=== PATIENT | male | born 1965 | race Caucasian/White ===

== ENCOUNTER 2020-04-28 07:30 | Outpatient (REF) | payer OTHER, SELFPAY ==
[2020-04-28 08:40] LABS: Cholesterol 164 mg/dL; Glucose Fasting 176 mg/dL (60-99); HDL Cholesterol 30 mg/dL; LDL Cholesterol Calculated 109 mg/dl; Triglycerides 129 mg/dL
[2020-04-28 09:09] LABS: Estimated Average Glucose 174 mg/dL; Hemoglobin A1c % 7.7 %
== END 2020-04-28 07:31 | disposition home or self-care (01) ==
LOC: HO.LAB 07:30
PROVIDERS: PCP Internal Medicine; Visit Provider Internal Medicine
DX: E11.9 Type 2 diabetes mellitus without complications (principal)
CPT/HCPCS: 80061; 82947; 83036

== ENCOUNTER 2020-05-31 09:44 | Outpatient (REF) | payer OTHER, SELFPAY ==
--- NOTE | 2020-05-31 09:48 | US_ITS ---
EXAMINATION: US ABDOMEN COMPLETE CLINICAL INFORMATION: Nausea. COMPARISON: Ultrasound abdomen complete dated 06/19/2016. CT abdomen without intravenous contrast dated 06/26/2008. TECHNIQUE: Real-time imaging of the abdominal viscera. Technically difficult study secondary to bowel gas and body habitus. FINDINGS: PANCREAS: The pancreatic head and body are unremarkable. The tail is obscured by gas. ABDOMINAL AORTA: The proximal and distal segments are normal in caliber. The mid aorta is obscured by gas. INFERIOR VENA CAVA: Visualized portions are normal. LIVER: The liver is enlarged, measuring 21.5 cm in CC dimension. The liver contour is normal. There is diffuse increased liver parenchymal echogenicity, consistent with hepatic steatosis. There is focal fatty sparing near the gallbladder fossa. No focal hepatic lesion. There is no intrahepatic biliary duct dilatation seen. GALLBLADDER: Multiple polyps are identified. The largest gallbladder wall polyp measures 0.8 x 0.6 x 0.6 cm. The other 2 polyps measure approximately 0.5 cm. The gallbladder is physiologically distended without evidence of stones, sludge, wall thickening or pericholecystic fluid. COMMON BILE DUCT: Normal in caliber measuring 0.51 cm in diameter. RIGHT KIDNEY: Lateral upper pole exophytic cyst measuring 1.1 cm. No hydronephrosis or renal calculi. The kidney measures 11.7 cm in maximum dimension. LEFT KIDNEY: Normal. No hydronephrosis. No renal calculi or focal parenchymal lesions. The kidney measures 11.8 cm in maximum dimension. SPLEEN: Normal. The spleen measures 12.3 cm in maximum dimension. FREE FLUID: None. US/US abdomen complete IMPRESSION: Hepatic steatosis and hepatomegaly. Multiple gallbladder wall polyps. The largest measures 0.8 x 0.6 x 0.6 cm. These are not visualized on the previous ultrasound. Suggest follow-up in 6-12 months to assess for stability. No inflammatory changes of the gallbladder.
== END 2020-05-31 09:45 | disposition home or self-care (01) ==
LOC: HO.HMGCX 09:44
PROVIDERS: PCP Internal Medicine; Visit Provider Internal Medicine
DX: R11.0 Nausea (principal)
CPT/HCPCS: 76700

== ENCOUNTER 2020-08-18 07:31 | Outpatient (REF) | payer OTHER, SELFPAY ==
[2020-08-18 08:09] LABS: MANUAL DIFF FLAG NO
[2020-08-18 08:24] LABS: Basophils Absolute Auto 0.1 X10*3/uL (0.0-0.2); Basophils Percent Auto 0.8 % (0-2); Eosinophils Absolute Auto 0.4 X10*3/uL (0.0-0.4); Eosinophils Percent Auto 4.6 % (0-4); Hematocrit 42.6 % (42-52); Hemoglobin 13.8 g/dl (14.0-18.0); Imm Gran Abs Auto 0.03 X10*3/uL (0.00-0.03); Imm Gran Pct Auto 0.3 % (0.0-0.4); Lymphocytes Absolute Auto 2.2 X10*3/uL (1.2-4.9); Lymphocytes Percent Auto 23.5 % (20-40); Mean Corpuscular HGB Conc 32.4 g/dl (31.0-36.0); Mean Corpuscular Hemoglobin 28.2 pg (27.0-33.0); Mean Corpuscular Volume 86.9 fL (80-98); Mean Platelet Volume 10.6 fL (9.4-12.4); Monocytes Absolute Auto 0.6 X10*3/uL (0.1-1.2); Monocytes Percent Auto 6.8 % (2-11); Neutrophils Absolute Auto 5.9 X10*3/uL (2.0-8.3); Platelet Count 230 X10*3/uL (160-400); Red Cell Distribution Width 13.6 % (11.0-16.0); White Blood Count 9.3 X10*3/uL (4.8-10.8)
[2020-08-18 08:25] LABS: Estimated Average Glucose 166 mg/dL; Hemoglobin A1c % 7.4 %
[2020-08-18 08:36] LABS: Cholesterol 172 mg/dL; HDL Cholesterol 36 mg/dL; LDL Cholesterol Calculated 109 mg/dl; Triglycerides 138 mg/dL
[2020-08-18 08:39] LABS: Alanine Aminotransferase 19 U/L (0-40); Albumin Level 4.6 g/dL (3.5-5.0); Alkaline Phosphatase 62 U/L (39-117); Aspartate Amino Transferase 15 U/L (5-37); Bilirubin Direct 0.2 mg/dL (0.0-0.5); Bilirubin Total 0.6 mg/dL (0.0-1.0); Lipase 26 U/L (8-78); Total Protein 7.3 g/dL (6.5-8.0)
[2020-08-18 09:02] LABS: Prostate Specific Antigen 0.21 ng/mL (<0.05-4.0)
== END 2020-08-18 07:32 | disposition home or self-care (01) ==
LOC: HO.LAB 07:31
PROVIDERS: PCP Internal Medicine; Referring Provider Urology; Visit Provider Internal Medicine Gastroenterology
DX: E11.9 Type 2 diabetes mellitus without complications (principal); R11.0 Nausea; R35.0 Frequency of micturition; Z12.5 Encounter for screening for malignant neoplasm of prostate
CPT/HCPCS: 36415; 80061; 80076; 83036; 83690; 84153; 85025

== ENCOUNTER 2020-09-12 11:58 | Day surgery (SDC) | payer OTHER, SELFPAY ==
--- NOTE | 2020-09-10 14:06 | P.CONAN_ITS ---
Documented by User: Zuleika Landa 09/10/20 14:08 HPI - Anesthesia Eval Consult details Narrative: 54yo M for Upper Endoscopy PMFSH Active Problems Active Problems: All Active Problems (Updated 09/07/20 @ 13:11 by Swapna Lees) Diabetes mellitus (Acute) Nausea (Acute) Cerumen debris on tympanic membrane (Acute) Hypertension (Acute) Past Medical History Medical History BPH (benign prostatic hyperplasia) Diabetes mellitus GERD (gastroesophageal reflux disease) Hypertension Sleep apnea Family History Family History Father CAD (coronary artery disease) CVD (cardiovascular disease) Mother Breast cancer Sister Colon cancer Surgical History Surgical History History of dental surgery History of esophagogastroduodenoscopy (EGD) History of removal of cyst Hx of colonoscopy Social History Social History Alcohol intake: never Smoking Status: Never smoker Use of substances other than those prescribed or required for medical reasons: No Advance Directives: No Advance Directives Information Provided: Yes Meds Allergies Allergy/AdvReac Type Severity Reaction Status Date / Time bee pollen [BEE STINGS] Allergy Unknown SWELLING Verified 08/21/20 15:29 cat dander Allergy Unknown STUFFED UP Verified 08/21/20 15:29 - CONGESTED Home Medications Medication Instructions Recorded Confirmed Last Taken Type alfuzosin 10 mg tablet,extended 10 mg PO DAILY 05/04/20 05/04/20 Unknown History release 24 hr aspirin 81 mg tablet,delayed 81 mg PO DAILY 05/04/20 05/04/20 Unknown History release atenolol 50 mg tablet 50 mg PO DAILY 05/04/20 05/04/20 Unknown History hydrochlorothiazide 12.5 mg tablet 12.5 mg PO DAILY 05/04/20 05/04/20 Unknown History lansoprazole 30 mg PO BID 09/07/20 09/07/20 Unknown History Exam Exam Date and Time: September 10, 2020 1406 Assessment and Plan Assessment Anesthesia Assessment: Chart Reviewed Documented by User: Julianne Krishna 09/12/20 12:57 [facility] Past Medical History Medical History BPH (benign prostatic hyperplasia) Diabetes mellitus GERD (gastroesophageal reflux disease) Hypertension Sleep apnea Family History Family History Father CAD (coronary artery disease) CVD (cardiovascular disease) Mother Breast cancer Sister Colon cancer Surgical History Surgical History History of dental surgery History of esophagogastroduodenoscopy (EGD) History of removal of cyst Hx of colonoscopy Social History Social History Alcohol intake: never Smoking Status: Never smoker Use of substances other than those prescribed or required for medical reasons: No Advance Directives: No Advance Directives Information Provided: Yes Meds Allergies Allergy/AdvReac Type Severity Reaction Status Date / Time bee pollen [BEE STINGS] Allergy Unknown SWELLING Verified 08/21/20 15:29 cat dander Allergy Unknown STUFFED UP Verified 08/21/20 15:29 - CONGESTED Home Medications Medication Instructions Recorded Confirmed Last Taken Type alfuzosin 10 mg tablet,extended 10 mg PO DAILY 05/04/20 05/04/20 Unknown History release 24 hr aspirin 81 mg tablet,delayed 81 mg PO DAILY 05/04/20 05/04/20 Unknown History release atenolol 50 mg tablet 50 mg PO DAILY 05/04/20 05/04/20 Unknown History hydrochlorothiazide 12.5 mg tablet 12.5 mg PO DAILY 05/04/20 05/04/20 Unknown History lansoprazole 30 mg PO BID 09/07/20 09/07/20 Unknown History Exam Airway Mallampati Class: III TM Dist: >3cm Neck ROM: Full
[2020-09-11 08:26] VITALS: BMI 36.8
[2020-09-12 12:16] VITALS: BP 145/73; PULSE 64; RESP 16; TEMP 36.6; O2SAT 96
[2020-09-12 12:39] LABS: Glucose, Whole Blood 156 mg/dL (60-115)
--- NOTE | 2020-09-12 13:05 | P.HPSUR_ITS ---
Pre-Procedural Eval Section B Chief Complaint: nausea Details of Present Illness: see h&p no chasnges Relevant Family History (Specify if Yes): No Relevant Social History: None Present Medications: see Short Stay Collaborative assessment Medical History: No relevant PMH History of Previous Operations: No relevant previous surgery Allergies: Allergies Allergy/AdvReac Type Severity Reaction Status Date / Time bee pollen [BEE STINGS] Allergy Unknown SWELLING Verified 08/21/20 15:29 cat dander Allergy Unknown STUFFED UP Verified 08/21/20 15:29 - CONGESTED Review of Systems Sugical H&P ROS: Negative: Constitution, Cardiovascular, Respiratory, Neurolo gical, Psychiatric, Hem-Onc, Allergic/Immunologic, Gastrointestinal, Genitourinary, Musculoskeletal, Integumentary, Endocrine and Eyes/Ears/Nose/Throat Exam Surgical H&P Exam: Normal: HEENT, Normal: Heart, Normal: Lungs, Normal: Extremities, Normal: Abdomen, Normal: Skin and Normal: Neurological Plan Diagnosis/Plan: Unchanged I have reviewed the history and physical and performed a pertinent physical examination on my patient. No changes have occurred unless specified.
--- NOTE | 2020-09-12 13:24 | PM.OP ---
Brief Operative Note Date of Service: 09/12/20 Pre-op diagnosis: nausea, gerd Post-op diagnosis: same (gastric polyps) Procedure: EGD Surgeon: Benja Castellanos Anesthesia: MAC Estimated blood loss (mL): 5 Pathology: other (gastric polyp , antral, egj biopsies) Condition: stable Disposition: PACU
[2020-09-12 13:28] VITALS: BP 116/58; PULSE 62; RESP 16; TEMP 36.3; O2SAT 96
[2020-09-12 13:43] VITALS: BP 120/66; PULSE 64; RESP 17; TEMP 36.3; O2SAT 98
--- NOTE | 2020-09-12 13:49 | OP_ITS ---
SURGEON: Benja Castellanos MD INDICATIONS: Nausea and gastroesophageal reflux disease. PREOPERATIVE DIAGNOSIS: POSTOPERATIVE DIAGNOSIS: PROCEDURE PERFORMED: Upper endoscopy with biopsy. ESTIMATED BLOOD LOSS: COMPLICATIONS: ANESTHESIA: ASSISTANTS: SPECIMENS: MEDICATIONS: Monitored anesthesia care. DESCRIPTION OF PROCEDURE: History and physical performed. The risks and benefits of the procedure were explained to the patient. Informed consent was obtained. The patient was placed in the left lateral decubitus position. The Olympus video gastroscope was introduced into the esophagus, stomach, and duodenum. Examination was performed and the scope was removed. He tolerated both procedures well and returned to recovery area in stable condition. FINDINGS: UPPER ENDOSCOPY: Esophagus: The esophagus was normal and the EG junction was irregular. There was no esophagitis. Biopsies were obtained from the EG junction. Stomach: Stomach showed multiple gastric polyps measuring in size from a few millimeters to about 25 to 30 mm. These were present in the body and fundus. Multiple biopsies were obtained from manufacturers representative polyps. Antral biopsies were also obtained. Some polyps appeared mildly inflamed. Duodenum: The bulb and second portion were normal. IMPRESSION: 1. Gastric polyps. 2. Gastroesophageal reflux disease. RECOMMENDATION: Follow up the biopsy results. MD RADHA Lynne/JES / [id number] [facility]asc[facility]
== END 2020-09-12 14:15 | disposition home or self-care (01) ==
PROVIDERS: PCP Internal Medicine; Visit Provider Internal Medicine Gastroenterology
PROC: 0DJ08ZZ Inspection of Upper Intestinal Tract, Via Natural or Artificial Opening Endoscopic (ICD-10-PCS; CPT 43235; principal; 2020-09-12 13:00)
DX: K21.9 Gastro-esophageal reflux disease without esophagitis (principal); R11.0 Nausea; K31.7 Polyp of stomach and duodenum; E11.9 Type 2 diabetes mellitus without complications; I10 Essential (primary) hypertension; Z79.899 Other long term (current) drug therapy
CPT/HCPCS: 43239; 82947; 88305; 88342

== ENCOUNTER 2020-12-22 07:31 | Outpatient (REF) | payer OTHER, SELFPAY ==
[2020-12-22 08:37] LABS: Estimated Average Glucose 171 mg/dL; Hemoglobin A1c % 7.6 %
[2020-12-22 08:40] LABS: Cholesterol 172 mg/dL; HDL Cholesterol 36 mg/dL; LDL Cholesterol Calculated 106 mg/dl; Triglycerides 153 mg/dL
== END 2020-12-22 07:32 | disposition home or self-care (01) ==
LOC: HO.LAB 07:31
PROVIDERS: PCP Internal Medicine; Visit Provider Internal Medicine
DX: E11.9 Type 2 diabetes mellitus without complications (principal)
CPT/HCPCS: 36415; 80061; 83036

== ENCOUNTER 2021-01-24 08:48 | Outpatient (REF) | payer OTHER, SELFPAY ==
--- NOTE | ~2021-01-24 | US_ITS ---
EXAMINATION: US ABDOMEN COMPLETE CLINICAL INFORMATION: Unspecified abdominal pain. COMPARISON: Ultrasound abdomen complete dated 05/31/2020 TECHNIQUE: Real-time imaging of the abdominal viscera. FINDINGS: PANCREAS: The visualized head and body of the pancreas appears unremarkable. Remainder of the pancreas is obscured by bowel gas. ABDOMINAL AORTA: The proximal, mid, and distal segments are normal in caliber. INFERIOR VENA CAVA: Visualized portions are normal. LIVER: Increased parenchymal echogenicity. The liver is normal in size. The liver contour is normal. . No focal hepatic lesion. There is no intrahepatic biliary duct dilatation seen. GALLBLADDER: Mild echogenic bile/sludge in the gallbladder. There are multiple echogenic nonshadowing polyps adjacent to the gallbladder wall, largest measuring 6 x 6 x 5 mm in today's study. No shadowing calculi. No wall thickening or pericholecystic fluid. No tenderness in the area of the gallbladder. COMMON BILE DUCT: Normal in caliber measuring 0.37 cm in diameter. RIGHT KIDNEY: Lower pole anechoic simple-appearing 1.3 cm exophytic cyst. No hydronephrosis or renal calculi. The kidney measures 12.2 cm in maximum dimension. LEFT KIDNEY: Normal. No hydronephrosis. No renal calculi or focal parenchymal lesions. The kidney measures 10.9 cm in maximum dimension. SPLEEN: Mildly enlarged. The spleen measures 13.4 cm in maximum dimension. FREE FLUID: None. US/US abdomen complete IMPRESSION: 1. Increased hepatic parenchymal echogenicity more commonly seen with hepatic steatosis. No focal lesion. 2. Multiple gallbladder wall polyps. These appear stable as compared to previous. In today's study, the largest measures 6 x 6 x 5 mm. Suggest followup in 6-12 months to evaluate for stability. Mild echogenic bile/sludge in the gallbladder lumen. No inflammatory changes. 3. Right renal 1.3 cm cyst.
== END 2021-01-24 08:49 | disposition home or self-care (01) ==
LOC: HO.HMGCX 08:48
PROVIDERS: PCP Internal Medicine; Visit Provider Internal Medicine
DX: R10.9 Unspecified abdominal pain (principal)
CPT/HCPCS: 76700

== ENCOUNTER 2021-04-17 06:29 | Outpatient (REF) | payer OTHER, SELFPAY ==
[2021-04-17 12:03] LABS: Cholesterol 182 mg/dL; Estimated Average Glucose 163 mg/dL; HDL Cholesterol 32 mg/dL; Hemoglobin A1c % 7.3 %; LDL Cholesterol Calculated 110 mg/dl; Triglycerides 203 mg/dL
== END 2021-04-17 06:30 | disposition home or self-care (01) ==
LOC: HO.HMGCLDS 06:29
PROVIDERS: PCP Internal Medicine; Visit Provider Internal Medicine
DX: E11.9 Type 2 diabetes mellitus without complications (principal)
CPT/HCPCS: 36415; 80061; 83036

== ENCOUNTER 2021-05-10 16:12 | Outpatient (REF) | payer OTHER, SELFPAY ==
--- NOTE | ~2021-05-10 | CT_ITS ---
EXAMINATION: CT HEAD WITHOUT CONTRAST CLINICAL INFORMATION: Headache COMPARISON: Previous head CT June 2016 TECHNIQUE: Contiguous axial imaging was performed from the skull base to vertex without intravenous administration of contrast. This CT examination was performed using dose optimization techniques as appropriate, variously including the following: *Automated exposure control *Adjustment of mA and/or kV according to patient size (this includes techniques or standardized protocols for targeted exams where dose is matched to indication/reason for exam; i.e. extremities or head) *Use of iterative reconstruction technique DLP: 909 mGy-cm FINDINGS: There is no evidence of acute intracranial hemorrhage or territorial infarction. No abnormal mass effect or midline shift is seen. Blackmon to white matter differentiation is well preserved. No extra-axial fluid collections are identified. The ventricles are normal in size. There is no abnormal attenuation within the brain parenchyma. There is coiled high attenuation seen in the right maxillary sinus. Appearance is questionable for an embolization coil. There is soft tissue opacification of the bilateral maxillary and ethmoid sinuses. There is also increased soft tissue in the nasal cavity. Appearance is questionable for sinonasal polyposis. There is increased round soft tissue seen in the nasopharynx measuring 1.5 cm questionable for protruding nasal polyp. The mastoid air cells and middle ears are clear. CT/CT head/brain wo con IMPRESSION: No acute intracranial findings. Bilateral maxillary and ethmoid sinus disease and question sinonasal polyposis with nasal polyp projecting posteriorly into the nasopharynx. New high attenuation curvilinear foreign body in the right maxillary sinus from 2016. Correlation with patient's clinical history is recommended.
== END 2021-05-10 16:13 | disposition home or self-care (01) ==
LOC: HO.CT 16:12
PROVIDERS: Visit Provider Internal Medicine
DX: R51.9 Headache, unspecified (principal)
CPT/HCPCS: 70450

== ENCOUNTER 2021-07-03 06:49 | Outpatient (REF) | payer OTHER, SELFPAY | END 2021-07-03 06:50 | disposition home or self-care (01) | LOC: HO.HMGCLDS 06:49 | PROVIDERS: PCP Internal Medicine; Visit Provider Internal Medicine | DX: Z20.822 Contact with and (suspected) exposure to COVID-19 (principal) | CPT/HCPCS: C9803; U0003; U0005 ==

== ENCOUNTER 2021-08-02 06:31 | Outpatient (REF) | payer OTHER, SELFPAY ==
[2021-08-02 11:58] LABS: Estimated Average Glucose 169 mg/dL; Hemoglobin A1c % 7.5 %
[2021-08-02 12:06] LABS: Cholesterol 197 mg/dL; Glucose Fasting 164 mg/dL (60-99); HDL Cholesterol 34 mg/dL; LDL Cholesterol Calculated 129 mg/dl; Triglycerides 174 mg/dL
== END 2021-08-02 06:32 | disposition home or self-care (01) ==
LOC: HO.HMGCLDS 06:31
PROVIDERS: PCP Internal Medicine; Visit Provider Internal Medicine
DX: E11.65 Type 2 diabetes mellitus with hyperglycemia (principal)
CPT/HCPCS: 36415; 80061; 82947; 83036

== ENCOUNTER 2021-10-03 06:07 | Outpatient (REF) | payer OTHER, SELFPAY ==
[2021-10-03 11:16] LABS: MANUAL DIFF FLAG NO
[2021-10-03 11:24] LABS: Basophils Absolute Auto 0.1 X10*3/uL (0.0-0.2); Basophils Percent Auto 0.8 % (0-2); Eosinophils Absolute Auto 0.6 X10*3/uL (0.0-0.4); Eosinophils Percent Auto 5.7 % (0-4); Hematocrit 42.4 % (42.0-52.0); Hemoglobin 13.4 g/dl (14.0-18.0); Imm Gran Abs Auto 0.06 X10*3/uL (0.00-0.03); Imm Gran Pct Auto 0.6 % (0.0-0.4); Lymphocytes Absolute Auto 2.4 X10*3/uL (1.2-4.9); Lymphocytes Percent Auto 24.6 % (20-40); Mean Corpuscular HGB Conc 31.6 g/dl (31.0-36.0); Mean Corpuscular Hemoglobin 27.6 pg (27.0-33.0); Mean Corpuscular Volume 87.4 fL (80.0-98.0); Mean Platelet Volume 11.1 fL (9.4-12.4); Monocytes Absolute Auto 0.8 X10*3/uL (0.1-1.2); Neutrophils Absolute Auto 5.8 x10*3/uL (2.0-8.3); Neutrophils Percent Auto 60.3 % (45-73); Platelet Count 244 X10*3/uL (160-400); Red Blood Count 4.85 X10*6/uL (4.60-5.80); Red Cell Distribution Width 13.4 % (11.0-16.0); White Blood Count 9.6 X10*3/uL (4.8-10.8)
[2021-10-03 12:06] LABS: Creatinine Urine 101.33 mg/dL; Microalbumin Urine < 5.0 mg/L
[2021-10-03 12:06] LABS: Alanine Aminotransferase 20 U/L (0-40); Albumin Level 4.5 g/dL (3.5-5.0); Alkaline Phosphatase 49 U/L (39-117); Anion Gap 15 (12-20); Aspartate Amino Transferase 14 U/L (5-37); Bilirubin Total 0.5 mg/dL (0.0-1.0); Blood Urea Nitrogen 20 mg/dL (9-16); Calcium 9.5 mg/dL (8.4-10.2); Carbon Dioxide 28 mmol/L (22-29); Chloride 102 mmol/L (96-108); Cholesterol 194 mg/dL; Estimated Glomerular Filt Rate > 60; Glucose Fasting 176 mg/dL (60-99); HDL Cholesterol 36 mg/dL; LDL Cholesterol Calculated 123 mg/dl; Potassium 4.6 mmol/L (3.3-5.1); Sodium 140 mmol/L (135-145); Total Protein 7.3 g/dL (6.5-8.0); Triglycerides 177 mg/dL
[2021-10-03 12:08] LABS: Estimated Average Glucose 177 mg/dL; Hemoglobin A1c % 7.8 %
== END 2021-10-03 06:08 | disposition home or self-care (01) ==
LOC: HO.HMGCLDS 06:07
PROVIDERS: Visit Provider Internal Medicine
DX: Z00.00 Encounter for general adult medical examination without abnormal findings (principal); Z13.0 Encounter for screening for diseases of the blood and blood-forming organs and certain disorders involving the immune mechanism; E11.9 Type 2 diabetes mellitus without complications
CPT/HCPCS: 36415; 80053; 80061; 82043; 83036; 85025

== ENCOUNTER 2022-02-04 06:33 | Outpatient (REF) | payer OTHER, SELFPAY ==
[2022-02-04 11:36] LABS: Estimated Average Glucose 157 mg/dL; Hemoglobin A1c % 7.1 %
[2022-02-04 11:40] LABS: Cholesterol 182 mg/dL; Glucose Fasting 152 mg/dL (60-99); HDL Cholesterol 33 mg/dL; LDL Cholesterol Calculated 110 mg/dl; Triglycerides 198 mg/dL
== END 2022-02-04 06:34 | disposition home or self-care (01) ==
LOC: HO.HMGCLDS 06:33
PROVIDERS: Visit Provider Internal Medicine
DX: Z13.9 Encounter for screening, unspecified (principal); E11.65 Type 2 diabetes mellitus with hyperglycemia
CPT/HCPCS: 36415; 80061; 82947; 83036

== ENCOUNTER 2022-06-16 06:03 | Outpatient (REF) | payer OTHER, SELFPAY ==
[2022-06-16 11:59] LABS: Estimated Average Glucose 180 mg/dL; Hemoglobin A1c % 7.9 %
[2022-06-16 12:06] LABS: Glucose Fasting 172 mg/dL (60-99)
== END 2022-06-16 06:04 | disposition home or self-care (01) ==
LOC: HO.HMGCLDS 06:03
PROVIDERS: PCP Internal Medicine; Visit Provider Internal Medicine
DX: E11.65 Type 2 diabetes mellitus with hyperglycemia (principal)
CPT/HCPCS: 36415; 82947; 83036

== ENCOUNTER 2022-09-23 07:48 | Outpatient (REF) | payer OTHER, SELFPAY ==
--- NOTE | ~2022-09-23 | US_ITS ---
EXAMINATION: US ABDOMEN COMPLETE CLINICAL INFORMATION: Gallbladder polyp. COMPARISON: Ultrasound abdomen complete 01/24/2021 and 05/31/2020. CT abdomen 06/26/2008. TECHNIQUE: Real-time imaging of the abdominal viscera. FINDINGS: PANCREAS: Normal. ABDOMINAL AORTA: The proximal, mid, and distal segments are normal in caliber. INFERIOR VENA CAVA: Visualized portions are normal. LIVER: The liver is enlarged measuring 23 cm in length. The liver contour is normal. There is diffuse increased liver echogenicity. No focal hepatic lesion. There is no intrahepatic biliary duct dilatation seen. GALLBLADDER: There are small nonmobile echogenic polyps at least 5 in number. The largest polyp measures 1.1 x 0.9 x 0.9 cm. There are shadowing echogenic areas of the gallbladder wall suspicious for adenomyomatosis. Gallbladder wall thickness is 0.3 cm. The gallbladder is physiologically distended without evidence of stones, sludge, wall thickening or pericholecystic fluid. COMMON BILE DUCT: Normal in caliber measuring 0.5 cm in diameter. RIGHT KIDNEY: There are two anechoic cysts: 1. Midpole cyst laterally measures 1.0 x 0.9 x 0.9 cm. 2. Midpole cyst laterally measuring 0.6 x 0.4 x 0.7 cm with posterior calcification. No hydronephrosis or renal calculi. The kidney measures 12.1 cm in maximum dimension. LEFT KIDNEY: Normal. No hydronephrosis. No renal calculi or focal parenchymal lesions. The kidney measures 11.5 cm in maximum dimension. SPLEEN: The spleen is enlarged. It measures 13.5 cm in maximum dimension. There is an accessory splenule measuring 1.9 x 1.5 x 1.8 cm. FREE FLUID: None. US/US abdomen complete IMPRESSION: 1. At least 5 gallbladder polyps with the largest measuring 1.1 x 0.9 x 0.9 cm. There are shadowing echogenic areas of the gallbladder wall suspicious for adenomyomatosis. 2. Two midpole right renal cysts. 3. Mild hepatomegaly with diffuse increased echogenicity. No focal lesion seen. 4. Rest of the abdominal ultrasound is unremarkable.
== END 2022-09-23 07:49 | disposition home or self-care (01) ==
LOC: HO.US 07:48
PROVIDERS: PCP Internal Medicine; Visit Provider Internal Medicine Gastroenterology
DX: K82.4 Cholesterolosis of gallbladder (principal)
CPT/HCPCS: 76700

== ENCOUNTER 2022-09-24 11:51 | Day surgery (SDC) | payer OTHER, SELFPAY ==
--- NOTE | 2022-09-23 11:35 | HO.ANESPROP2 ---
Documented by User: Zuleika Ladna NP 09/23/22 11:36 HPI - Anesthesia Eval Consult details Narrative: 56yo M for Colonoscopy PMFSH Active Problems Active Problems: All Active Problems (Updated 09/23/22 @ 09:21 by Chantal Paez RN) Nausea (Acute) Cerumen debris on tympanic membrane (Acute) Headache (Acute) Physical exam (Acute) Obesity (Acute) Obesity, diabetes, and hypertension syndrome (Acute) Hypertension (Acute) Diabetes mellitus (Acute) Past Medical History Medical History (Updated 09/23/22 @ 09:21 by Chantal Paez RN) BPH (benign prostatic hyperplasia) Diabetes mellitus Diabetes mellitus with coincident hypertension GERD (gastroesophageal reflux disease) Hypertension Obesity Obesity, diabetes, and hypertension syndrome Sleep apnea Stroke Family History Family History Father CAD (coronary artery disease) CVD (cardiovascular disease) Mother Breast cancer Sister Colon cancer Surgical History Surgical History History of dental surgery History of esophagogastroduodenoscopy (EGD) History of removal of cyst Hx of colonoscopy Social History Social History Housing: House Alcohol intake: never Patient Tobacco Use Status: Never used Tobacco e-Cigarette/Vaping Use: Never Used Second Hand Smoke Exposure: No Use of substances other than those prescribed or required for medical reasons: No Are you DNR?: No Advance Directives: No Advance Directives Information Provided: Yes service: No Current occupational status: employed Cognitive needs: No Hearing needs: No Vision needs: Yes Meds Allergies Allergy/AdvReac Type Severity Reaction Status Date / Time bee pollen [BEE STINGS] Allergy Unknown SWELLING Verified 06/16/22 09:23 cat dander Allergy Unknown STUFFED UP Verified 06/16/22 09:23 - CONGESTED Home Medications Medication Instructions Recorded Confirmed Last Taken Type aspirin 81 mg tablet,delayed 81 mg PO DAILY 05/04/20 06/16/22 Unknown History release (Adult Low Dose Aspirin) esomeprazole magnesium 40 mg 40 mg PO DAILY 08/06/21 06/16/22 Unknown History capsule,delayed release fluocinonide 0.05 % topical cream 1 appl topical BID 08/06/21 06/16/22 Unknown History Exam Exam Date and Time: September 23, 2022 1135 Assessment and Plan Assessment Anesthesia Assessment: Chart Reviewed Documented by User: Brissa Fong MD 09/24/22 13:33 HPI - Anesthesia Eval Consult details Narrative: 56yo M for Colonoscopy screening [facility] Past Medical History Medical History (Updated 09/23/22 @ 09:21 by Chantal Paez RN) BPH (benign prostatic hyperplasia) Diabetes mellitus Diabetes mellitus with coincident hypertension GERD (gastroesophageal reflux disease) Hypertension Obesity Obesity, diabetes, and hypertension syndrome Sleep apnea Stroke Family History Family History Father CAD (coronary artery disease) CVD (cardiovascular disease) Mother Breast cancer Sister Colon cancer Family history of problems with anesthesia: No Surgical History Surgical History History of dental surgery History of esophagogastroduodenoscopy (EGD) History of removal of cyst Hx of colonoscopy History of Problems with Anesthesia: No Social History Social History Housing: House Alcohol intake: never Patient Tobacco Use Status: Never used Tobacco e-Cigarette/Vaping Use: Never Used Second Hand Smoke Exposure: No Use of substances other than those prescribed or required for medical reasons: No Are you DNR?: No Advance Directives: No Advance Directives Information Provided: Yes service: No Current occupational status: employed Cognitive needs: No Hearing needs: No Vision needs: Yes Meds Allergies Allergy/AdvReac Type Severity Reaction Status Date / Time bee pollen [BEE STINGS] Allergy Unknown SWELLING Verified 06/16/22 09:23 cat dander Allergy Unknown STUFFED UP Verified 06/16/22 09:23 - CONGESTED Home Medications Medication Instructions Recorded Confirmed Last Taken Type aspirin 81 mg tablet,delayed 81 mg PO DAILY 05/04/20 06/16/22 Unknown History release (Adult Low Dose Aspirin) esomeprazole magnesium 40 mg 40 mg PO DAILY 08/06/21 06/16/22 Unknown History capsule,delayed release fluocinonide 0.05 % topical cream 1 appl topical BID 08/06/21 06/16/22 Unknown History Exam Airway Mallampati Class: II TM Dist: >3cm Neck ROM: Full Heart: rr Lungs: cta Assessment and Plan Final Anesthetic Review Family History of Problems with Anesthesia: No History of Problems with Anesthesia: No NPO: Yes ASA Class: II Final Preanesthetic Review: No Changes in Pt Med Stat, Meds/Allgs Chart Reviewed, Consent Obtained/Reviewed and Anes Risks/Benef Reviewed Patient Risk: Low Procedure Risk: Low Anesthetic Plan Anesthetic Plan: MAC: Disposition: Standard PACU
[2022-09-24 12:06] VITALS: BP 172/53; PULSE 52; RESP 18; TEMP 36.4; O2SAT 97; BMI 37.6
--- NOTE | 2022-09-24 12:21 | ECG_ITS ---
Test Reason : bradycardia Blood Pressure : / mmHG Vent. Rate : 052 BPM Atrial Rate : 052 BPM P-R Int : 178 ms QRS Dur : 100 ms QT Int : 430 ms P-R-T Axes : 047 011 033 degrees QTc Int : 399 ms Sinus bradycardia Otherwise normal ECG When compared with ECG of 23-JUN-2016 10:19, Vent. rate has decreased BY 35 BPM Referred By: Brissa Fong Electronically Signed By:LIBIA TELLEZ
[2022-09-24 12:53] LABS: Glucose, Whole Blood 150 mg/dL (60-115)
[2022-09-24] MEDS: Lactated Ringers 1,000 ML 100 ML IVCONT (12:55)
--- NOTE | 2022-09-24 13:04 | MHC.SHP ---
Pre-Procedural Eval Section A Date of Service: 09/24/22 Section B Chief Complaint: screening Details of Present Illness: see H&P no changes Relevant Family History (Specify if Yes): No Relevant Social History: None Present Medications: see Short Stay Collaborative assessment Medical History: No relevant PMH Allergies: Allergies Allergy/AdvReac Type Severity Reaction Status Date / Time bee pollen [BEE STINGS] Allergy Unknown SWELLING Verified 06/16/22 09:23 cat dander Allergy Unknown STUFFED UP Verified 06/16/22 09:23 - CONGESTED Review of Systems Sugical H&P ROS: Negative: Constitution, Cardiovascular, Respiratory, Neurological, Psychiatric, Hem-Onc, Allergic/Immunologic, Gastrointestinal, Genitourinary, Musculoskeletal, Integumentary, Endocrine and Eyes/Ears/Nose/Throat Exam Surgical H&P Exam: Normal: HEENT, Normal: Heart, Normal: Lungs, Normal: Extremities, Normal: Abdomen, Normal: Skin and Normal: Neurological Plan Diagnosis/Plan: Unchanged I have reviewed the history and physical and performed a pertinent physical examination on my patient. No changes have occurred unless specified. Time Spent With Patient Time: Total time managing care of this patient today ____ minutes.
[2022-09-24 13:43] VITALS: BP 108/59; PULSE 56; RESP 18; TEMP 36.3; O2SAT 97
[2022-09-24 13:58] VITALS: BP 149/94; PULSE 52; RESP 18; TEMP 36.1; O2SAT 98
--- NOTE | 2022-09-25 01:10 | OP_ITS ---
SURGEON: Benja Castellanos MD INDICATIONS: Colon cancer screening and prior history of adenomatous colon polyps. PREOPERATIVE DIAGNOSIS: POSTOPERATIVE DIAGNOSIS: PROCEDURE PERFORMED: Colonoscopy to the terminal ileum with biopsy and snare polypectomy. ESTIMATED BLOOD LOSS: COMPLICATIONS: ANESTHESIA: Medications, monitored anesthesia care. ASSISTANTS: SPECIMENS: DESCRIPTION OF PROCEDURE: A history and physical was performed. The risks and benefits of the procedure were explained to the patient. Informed consent was obtained. The patient was placed in the left lateral decubitus position. A digital rectal exam was performed and was found to be normal. The Olympus pediatric video colonoscope was introduced into the rectum and advanced to the cecum without difficulty. The cecum was identified by transillumination, palpation, and identification of ileocecal valve. Examination was performed. The scope was removed. He tolerated the procedure well and was taken to recovery area in stable condition. FINDINGS: The terminal ileum was examined and appeared normal. The visualized colonic mucosa was normal. Four polyps were removed; two at 80 cm and two at 70 cm. All were less than 10 mm, two were snared, one each separate locations, and two were removed with biopsy forceps. The snared polyps could not be recovered due to problems with the trap recovery system. No other polyps were identified. The quality of the prep was good. Retroflexed examination showed moderate-sized internal hemorrhoids. The procedure was performed on 09/24/2022. IMPRESSION: Colon polyps. RECOMMENDATION: Follow up with the biopsy results. MD RADHA Lynne/JES / [id number]
== END 2022-09-24 14:53 | disposition home or self-care (01) ==
PROVIDERS: PCP Internal Medicine; Visit Provider Internal Medicine Gastroenterology
PROC: 0DJD8ZZ Inspection of Lower Intestinal Tract, Via Natural or Artificial Opening Endoscopic (ICD-10-PCS; CPT 45378; principal; 2022-09-24 13:00)
DX: Z12.11 Encounter for screening for malignant neoplasm of colon (principal); Z86.010 Personal history of colon polyps; D12.4 Benign neoplasm of descending colon; K63.5 Polyp of colon; K64.8 Other hemorrhoids; K21.9 Gastro-esophageal reflux disease without esophagitis; I10 Essential (primary) hypertension; G47.30 Sleep apnea, unspecified; E11.9 Type 2 diabetes mellitus without complications; Z79.84 Long term (current) use of oral hypoglycemic drugs; Z79.82 Long term (current) use of aspirin; Z79.899 Other long term (current) drug therapy; Z86.73 Personal history of transient ischemic attack (TIA), and cerebral infarction without residual deficits
CPT/HCPCS: 45385; 45380; 82947; 88305; 93005

== ENCOUNTER → 2022-10-09 15:19 | Outpatient (BNVA) | payer OTHER, SELFPAY | PROVIDERS: PCP Internal Medicine; Visit Provider Internal Medicine Endocrinology, Diabetes & Metabolism | DX: E11.9 Type 2 diabetes mellitus without complications (principal) | CPT/HCPCS: 82947; 83036 ==

== ENCOUNTER 2022-11-12 15:35 | Outpatient (REF) | payer OTHER, SELFPAY ==
[2022-11-12 18:52] LABS: Blood Urea Nitrogen 20 mg/dL (9-16); Estimated Glomerular Filt Rate > 60
== END 2022-11-12 15:36 | disposition home or self-care (01) ==
LOC: HO.LAB 15:35
PROVIDERS: PCP Internal Medicine; Referring Provider Internal Medicine Gastroenterology; Visit Provider Surgery
DX: K82.4 Cholesterolosis of gallbladder (principal); R16.1 Splenomegaly, not elsewhere classified
CPT/HCPCS: 36415; 82565; 84520

== ENCOUNTER 2022-11-26 06:09 | Outpatient (REF) | payer OTHER, SELFPAY ==
[2022-11-26 11:20] LABS: MANUAL DIFF FLAG NO
[2022-11-26 11:36] LABS: Basophils Absolute Auto 0.1 X10*3/uL (0.0-0.2); Basophils Percent Auto 0.7 % (0-2); Eosinophils Absolute Auto 0.6 X10*3/uL (0.0-0.4); Eosinophils Percent Auto 6.4 % (0-4); Hematocrit 41.9 % (42.0-52.0); Hemoglobin 13.3 g/dl (14.0-18.0); Imm Gran Abs Auto 0.03 X10*3/uL (0.00-0.03); Imm Gran Pct Auto 0.3 % (0.0-0.4); Mean Corpuscular HGB Conc 31.7 g/dl (31.0-36.0); Mean Corpuscular Hemoglobin 27.5 pg (27.0-33.0); Mean Corpuscular Volume 86.7 fL (80.0-98.0); Mean Platelet Volume 10.4 fL (9.4-12.4); Monocytes Absolute Auto 0.9 X10*3/uL (0.1-1.2); Monocytes Percent Auto 9.6 % (2-11); Platelet Count 258 X10*3/uL (160-400); Red Blood Count 4.83 X10*6/uL (4.60-5.80); Red Cell Distribution Width 13.4 % (11.0-16.0); White Blood Count 9.7 X10*3/uL (4.8-10.8)
[2022-11-26 12:00] LABS: Estimated Average Glucose 157 mg/dL; Hemoglobin A1c % 7.1 %
[2022-11-26 12:06] LABS: Alanine Aminotransferase 13 U/L (0-40); Albumin Level 4.3 g/dL (3.5-5.0); Alkaline Phosphatase 55 U/L (39-117); Anion Gap 11 (12-20); Aspartate Amino Transferase 11 U/L (5-37); Bilirubin Total 0.7 mg/dL (0.0-1.0); Blood Urea Nitrogen 17 mg/dL (9-16); Calcium 9.4 mg/dL (8.4-10.2); Carbon Dioxide 29 mmol/L (22-29); Chloride 105 mmol/L (96-108); Cholesterol 193 mg/dL; Estimated Glomerular Filt Rate > 60; Glucose Fasting 129 mg/dL (60-99); HDL Cholesterol 31 mg/dL; LDL Cholesterol Calculated 137 mg/dl; Potassium 4.2 mmol/L (3.3-5.1); Sodium 141 mmol/L (135-145); Total Protein 6.9 g/dL (6.5-8.0); Triglycerides 126 mg/dL
[2022-11-26 12:27] LABS: Thyroid Stimulating Hormone 1.64 uIU/mL (0.32-4.0)
[2022-11-26 12:40] LABS: Creatinine Urine 120.44 mg/dL; Microalbum/Creatinine Ratio Ur 5.8 ug/mg cr
== END 2022-11-26 06:10 | disposition home or self-care (01) ==
LOC: HO.HMGCLDS 06:09
PROVIDERS: PCP Internal Medicine; Visit Provider Internal Medicine
DX: E11.69 Type 2 diabetes mellitus with other specified complication (principal); E11.65 Type 2 diabetes mellitus with hyperglycemia; E03.9 Hypothyroidism, unspecified; N28.9 Disorder of kidney and ureter, unspecified; E78.5 Hyperlipidemia, unspecified; D64.9 Anemia, unspecified; E66.01 Morbid (severe) obesity due to excess calories
CPT/HCPCS: 36415; 80053; 80061; 82043; 83036; 84443; 85025

== ENCOUNTER 2022-12-02 07:44 | Outpatient (REF) | payer OTHER, SELFPAY ==
--- NOTE | ~2022-12-02 | CT_ITS ---
EXAMINATION: CT ABDOMEN AND PELVIS WITHOUT CONTRAST CLINICAL INFORMATION: Cholesterolosis of gallbladder COMPARISON: Ultrasound abdomen 09/23/2022 TECHNIQUE: Multidetector volumetric imaging was performed from the superior aspect of the liver through the pubic symphysis. Sagittal and coronal reformatted images were obtained on the technologist's workstation. This CT examination was performed using dose optimization techniques as appropriate, variously including the following: *Automated exposure control *Adjustment of mA and/or kV according to patient size (this includes techniques or standardized protocols for targeted exams where dose is matched to indication/reason for exam; i.e. extremities or head) *Use of iterative reconstruction technique DLP: 698 mGy-cm FINDINGS: LUNG BASES: There is bibasilar dependent atelectasis. Heart size is normal. LIVER, GALLBLADDER, AND BILIARY TREE: The liver is normal in size, shape, and attenuation. No focal hepatic lesion or biliary ductal dilatation is present. There is a solitary radiopaque 4 mm gallstone. No wall thickening seen. PANCREAS: Unremarkable. SPLEEN: Unremarkable. ADRENAL GLANDS: Unremarkable. KIDNEYS AND URETERS: The kidneys are normal in size, shape, and attenuation. No hydronephrosis, hydroureter, or calculi seen. There is mild bilateral perinephric stranding. BLADDER: Unremarkable. GASTROINTESTINAL TRACT: There is scattered stool, diverticuli and gas seen throughout the colon without any significant distention. The small bowel loops are normal caliber. Appendix is not seen well. No free air or free fluid. ABDOMINAL WALL: No significant hernia is appreciated. LYMPH NODES: Normal. VASCULAR: Unremarkable. PELVIC VISCERA: Unremarkable. OSSEOUS STRUCTURES: No aggressive lytic or sclerotic process seen. There is posterior annular calcification at the L4-L5 disc level. CT/CT abdomen pelvis wo IV con IMPRESSION: 1. Solitary radiopaque gallstone without wall thickening. Ultrasound visualized polyps are not seen by CT. 2. Mild constipation. Scattered colonic diverticulosis without diverticulitis. Fleischner guidelines were followed.
== END 2022-12-02 07:45 | disposition home or self-care (01) ==
LOC: HO.CT 07:44
PROVIDERS: PCP Internal Medicine; Visit Provider Surgery
DX: K82.4 Cholesterolosis of gallbladder (principal)
CPT/HCPCS: 74176

== ENCOUNTER 2022-12-16 07:18 | Day surgery (SDC) | payer OTHER, SELFPAY ==
[2022-12-08 11:13] VITALS: BMI 35.4
--- NOTE | 2022-12-12 09:31 | HO.ANESPROP2 ---
Documented by User: Zuleika Landa NP 12/12/22 09:35 HPI - Anesthesia Eval Consult details Narrative: 56yo M for Cholecystectomy Laparoscopic,poss open Optimized per PCP s/p Colonoscopy 09/2022 with [facility] Active Problems Active Problems: All Active Problems (Updated 12/08/22 @ 11:13 by Claudine Miller RN) Nausea (Acute) Cerumen debris on tympanic membrane (Acute) Headache (Acute) Physical exam (Acute) Pre-op exam (Acute) FLORINDA on CPAP (Acute) Chronic GERD (Acute) Splenomegaly (Acute) Polyp of gallbladder (Acute) Obesity (Acute) Obesity, diabetes, and hypertension syndrome (Acute) Hypertension (Acute) Diabetes mellitus (Acute) Past Medical History Medical History (Updated 12/08/22 @ 11:13 by Claudine Miller RN) BPH (benign prostatic hyperplasia) Diabetes mellitus Diabetes mellitus with coincident hypertension GERD (gastroesophageal reflux disease) Hypertension Obesity Obesity, diabetes, and hypertension syndrome Polyp of gallbladder Sleep apnea Splenomegaly Stroke Family History Family History Father CAD (coronary artery disease) CVD (cardiovascular disease) Mother Breast cancer Sister Colon cancer Family history of problems with anesthesia: No Surgical History Surgical History (Updated 12/08/22 @ 10:50 by Claudine Miller RN) History of dental surgery History of esophagogastroduodenoscopy (EGD) History of removal of cyst Hx of colonoscopy History of Problems with Anesthesia: No Social History Social History Housing: House Are you a primary zoo caretaker to a significant other at home: No Do you presently have visiting nurse or other home services: No Alcohol intake: never Patient Tobacco Use Status: Never used Tobacco e-Cigarette/Vaping Use: Never Used Second Hand Smoke Exposure: No Use of substances other than those prescribed or required for medical reasons: No Have you been hit, kicked, punched, or otherwise hurt by someone within the past year? If so, by whom?: No Are you DNR?: No Advance Directives: No Advance Directives Information Provided: No Advance Directives on File: No Recently lost weight without trying: No Eating poorly because of decreased appetite: No Nutrition Risks: No Nutritional Risk Poor oral hygiene: No service: No Current occupational status: employed Cognitive needs: No Hearing needs: No Vision needs: Yes Meds Allergies Allergy/AdvReac Type Severity Reaction Status Date / Time cat dander Allergy Severe Nasal Verified 12/08/22 10:46 congestion bee pollen [BEE STINGS] Allergy Intermediate SWELLING Verified 12/08/22 10:46 Home Medications Medication Instructions Recorded Confirmed Last Taken Type aspirin 81 mg tablet,delayed 81 mg PO DAILY 05/04/20 12/08/22 12/14/22 History release (Adult Low Dose Aspirin) esomeprazole magnesium 40 mg 40 mg PO DAILY 08/06/21 12/08/22 12/16/22 History capsule,delayed release fluocinonide 0.05 % topical cream 1 appl topical BID 08/06/21 12/08/22 Unknown History Exam Exam Date and Time: December 12, 2022 0931 Height,Weight and Vital Signs: Height 5 ft 11 in Weight 115.212 kg Pertinent Lab Results Pertinent Lab Results: Laboratory Tests 11/26/22 11/26/22 06:29 06:29 WBC 9.7 Hgb 13.3 L Hct 41.9 L Plt Count 258 Sodium 141 Potassium 4.2 Chloride 105 Carbon Dioxide 29 BUN 17 H Creatinine 0.95 Laboratory Tests 10/09/22 15:55 Hgb A1c (Clinic) 8.1 H Narrative Narrative: EKG 09/2022 Vent. Rate : 052 BPM ? ? Atrial Rate : 052 BPM ?? P-R Int : 178 ms? QRS Dur : 100 ms ? ? QT Int : 430 ms ? ? ? P-R-T Axes : 047 011 033 degrees ?? QTc Int : 399 ms ? Sinus bradycardia Otherwise normal ECG When compared with ECG of 23-JUN-2016 10:19, Vent. rate has decreased BY? 35 BPM Assessment and Plan Assessment Anesthesia Assessment: Chart Reviewed Final Anesthetic Review Family History of Problems with Anesthesia: No History of Problems with Anesthesia: No Documented by User: Rod Yung MD 12/16/22 09:24 [facility] Past Medical History Medical History (Updated 12/08/22 @ 11:13 by Claudine Miller RN) BPH (benign prostatic hyperplasia) Diabetes mellitus Diabetes mellitus with coincident hypertension GERD (gastroesophageal reflux disease) Hypertension Obesity Obesity, diabetes, and hypertension syndrome Polyp of gallbladder Sleep apnea Splenomegaly Stroke Family History Family History Father CAD (coronary artery disease) CVD (cardiovascular disease) Mother Breast cancer Sister Colon cancer Surgical History Surgical History (Updated 12/08/22 @ 10:50 by Claudine Miller RN) History of dental surgery History of esophagogastroduodenoscopy (EGD) History of removal of cyst Hx of colonoscopy Social History Social History Housing: House Are you a primary zoo caretaker to a significant other at home: No Do you presently have visiting nurse or other home services: No Alcohol intake: never Patient Tobacco Use Status: Never used Tobacco e-Cigarette/Vaping Use: Never Used Second Hand Smoke Exposure: No Use of substances other than those prescribed or required for medical reasons: No Have you been hit, kicked, punched, or otherwise hurt by someone within the past year? If so, by whom?: No Are you DNR?: No Advance Directives: No Advance Directives Information Provided: No Advance Directives on File: No Recently lost weight without trying: No Eating poorly because of decreased appetite: No Nutrition Risks: No Nutritional Risk Poor oral hygiene: No service: No Current occupational status: employed Cognitive needs: No Hearing needs: No Vision needs: Yes Meds Allergies Allergy/AdvReac Type Severity Reaction Status Date / Time cat dander Allergy Severe Nasal Verified 12/08/22 10:46 congestion bee pollen [BEE STINGS] Allergy Intermediate SWELLING Verified 12/08/22 10:46 Home Medications Medication Instructions Recorded Confirmed Last Taken Type aspirin 81 mg tablet,delayed 81 mg PO DAILY 05/04/20 12/08/22 12/14/22 History release (Adult Low Dose Aspirin) esomeprazole magnesium 40 mg 40 mg PO DAILY 08/06/21 12/08/22 12/16/22 History capsule,delayed release fluocinonide 0.05 % topical cream 1 appl topical BID 08/06/21 12/08/22 Unknown History Exam Airway Mallampati Class: III TM Dist: <=3cm (anterior) Neck ROM: Full Heart: ok Lungs: ok Assessment and Plan Assessment Anesthesia Assessment: Anesthesia Plan Discussed Final Anesthetic Review NPO: Yes ASA Class: III Final Preanesthetic Review: No Changes in Pt Med Stat, Meds/Allgs Chart Reviewed, Consent Obtained/Reviewed and Anes Risks/Benef Reviewed Patient Risk: Intermediate Procedure Risk: Intermediate Anesthetic Plan Anesthetic Plan: GA and Agree w/ Assess. and Plan Disposition: Standard PACU
[2022-12-16] VITALS (8 sets, daily range): BP systolic 126–190; BP diastolic 67–97; PULSE 53–71; RESP 14–16; TEMP 36.1–37.1; O2SAT 93–96
[2022-12-16] MEDS: Lactated Ringers 1,000 ML 100 ML IVCONT (08:23)
[2022-12-16 08:28] LABS: Glucose, Whole Blood 126 mg/dL (60-115)
--- NOTE | 2022-12-16 08:45 | MHC.SHP ---
Pre-Procedural Eval Section A Date of Service: 12/16/22 Section B Chief Complaint: Cholesterolosis of gallbladder Details of Present Illness: has hx of GB polyps, increasing in size, with one polyp 1.1 cm Relevant Family History (Specify if Yes): No Relevant Social History: None Present Medications: see Short Stay Collaborative assessment Medical History: Significant History (FLORINDA, obesity, GERD, HTN, DM) History of Previous Operations: No relevant previous surgery Allergies: Allergies Allergy/AdvReac Type Severity Reaction Status Date / Time cat dander Allergy Severe Nasal Verified 12/08/22 10:46 congestion bee pollen [BEE STINGS] Allergy Intermediate SWELLING Verified 12/08/22 10:46 Review of Systems Sugical H&P ROS: Negative: Constitution, Cardiovascular, Respiratory, Neurological, Psychiatric, Hem-Onc, Allergic/Immunologic, Gastrointestinal, Genitourinary, Musculoskeletal, Integumentary, Endocrine and Eyes/Ears/Nose/Throat Exam Surgical H&P Exam: Normal: HEENT, Normal: Heart, Normal: Lungs, Normal: Extremities, Normal: Abdomen, Normal: Skin and Normal: Neurological Plan Diagnosis/Plan: Unchanged I have reviewed the history and physical and performed a pertinent physical examination on my patient. No changes have occurred unless specified. Time Spent With Patient Time: Total time managing care of this patient today ____ minutes.
--- NOTE | 2022-12-16 09:50 | W.PM.OPN ---
Operative Note Operative Note Date of Service: 12/16/22 Narrative: Preop diagnosis: Gallbladder polyps Postop diagnosis: The same Procedure: Laparoscopic cholecystectomy Surgeon: Ananth Duffy MD bindery library technical assistant: JAY Martinez The patient is a 56-year-old male, who has had gallbladder polyps, increasing in size. One polyp has grown to about 1.1 cm in widest dimension. I recommended laparoscopic cholecystectomy in view of this. He understood the technique of the planned procedure as well as the risks, benefits, and alternatives. He was brought to the operating room placed supine under general anesthesia via endotracheal tube. The abdomen was prepped and draped in the usual sterile fashion. A surgical time-out was done. The patient received Cefotan 2 g IV preoperatively I made a short supraumbilical incision using a blade 15 and this was carried down through the full-thickness of the skin and subcutaneous fat down to the fascia. The fascia was incised. The peritoneum was entered. Through this incision a Andre port was introduced. Pneumoperitoneum was introduced to a pressure of 15 mm hg. From here on, the rest of the procedure was done under vision with the laparoscope. With laparoscopic visualization I inserted a 5/12 mm port in the epigastric area below the subcostal margin. Two 5 mm ports introduced a small incisions below the subcostal margin along the anterior axillary line and the midclavicular line. Graspers were placed through these working ports. The patient was placed in head-up and [id number] position. I lifted the liver edge to visualize the gallbladder. This was supple and not inflamed. I was able to apply a grasper at the fundus the gallbladder and this was used to retract the gallbladder cephalad. I applied another grasper at the pouch of the gallbladder close to the neck. This was used to retract the gallbladder laterally. At this point, the gallbladder was being retracted in a cephalad and lateral fashion to put the area of the cystic duct on stretch. I carefully dissected the neck of the gallbladder using the [place] dissector to identify the cystic duct. The duct was clearly identified and I proceeded to dissect this gently to strip off fibrous and areolar tissue. By doing so I was able to confirm its confluence with the neck of the gallbladder. I was also able to achieve critical view of the hepatocystic triangle. The cystic artery was clearly seen as well. I applied clips on the cystic duct, with 2 clips being applied distally. The cystic duct was transected between clips with Endo scissors. I applied clips on the cystic artery as well and this was transected between clips with Endo scissors. I made an incision on the peritoneum of the gallbladder using the electrocautery spatula and proceeded to define a plane of dissection between the gallbladder wall and the liver bed using a combination of blunt dissection with the tip of the spatula, and electrocautery. I the gallbladder from the liver bed along this well-defined plane all the way to the fundus using a combination of blunt dissection and electrocautery with the spatula until the entire gallbladder was completely . The gallbladder was retrieved through an endobag through the umbilical incision. I reinserted all ports and re-insufflated. Examined the subhepatic space. There was note of good hemostasis on the liver bed. I examined all 4 quadrants. There is no evidence of any bowel injury or any other pathology. There was no sign of any bile leak. I therefore desufflated to the port sites. I removed all ports under vision with the laparoscope. The umbilical port was removed last. The fascia of the umbilical incision was closed with a [id number] Polysorb 0 stitch. Skin closure was achieved on all incisions using pulse of 4-0 subcuticular running sutures. All incisions were infiltrated with Marcaine 0.5% for postop analgesia. Dressings were applied and the procedure was completed The patient tolerated procedure well. There were no immediate complications. Initial and final counts of sponges and instruments were correct. Estimated blood loss was less than 25 cc. The patient was extubated without difficulty and transferred to the recovery room with stable vital signs.
[2022-12-16] MEDS: fentaNYL citrate/PF 100 MCG/2 ML VIAL 50 MCG IVPUSH (10:05)
[2022-12-16] MEDS: Acetaminophen 325 MG TABLET 650 MG PO (10:50)
[2022-12-16] MEDS: oxyCODONE HCl Immed Release 5 MG TABLET 10 MG PO (10:50)
== END 2022-12-16 11:31 | disposition home or self-care (01) ==
PROVIDERS: PCP Internal Medicine; Visit Provider Surgery
PROC: 0FT44ZZ Resection of Gallbladder, Percutaneous Endoscopic Approach (ICD-10-PCS; CPT 47562; principal; 2022-12-16 09:10)
DX: K81.1 Chronic cholecystitis (principal); E11.8 Type 2 diabetes mellitus with unspecified complications; I10 Essential (primary) hypertension; G47.33 Obstructive sleep apnea (adult) (pediatric); E66.01 Morbid (severe) obesity due to excess calories; Z68.35 Body mass index [BMI] 35.0-35.9, adult; R16.1 Splenomegaly, not elsewhere classified; Z79.85 Long-term (current) use of injectable non-insulin antidiabetic drugs; Z79.51 Long term (current) use of inhaled steroids; Z79.82 Long term (current) use of aspirin; Z79.899 Other long term (current) drug therapy; Z99.89 Dependence on other enabling machines and devices; Z86.73 Personal history of transient ischemic attack (TIA), and cerebral infarction without residual deficits
CPT/HCPCS: 47562; 82947; 88304; J1885; J2405; J2795; J3010

== ENCOUNTER → 2022-12-29 10:19 | Outpatient (BNVA) | payer OTHER, SELFPAY | PROVIDERS: PCP Internal Medicine; Visit Provider Surgery ==

== ENCOUNTER → 2023-01-13 15:28 | Outpatient (BNVA) | payer OTHER, SELFPAY | PROVIDERS: PCP Internal Medicine; Visit Provider Internal Medicine Endocrinology, Diabetes & Metabolism | DX: E11.9 Type 2 diabetes mellitus without complications (principal); Z79.84 Long term (current) use of oral hypoglycemic drugs | CPT/HCPCS: 82947 ==

== ENCOUNTER 2023-05-02 07:16 | Outpatient (REF) | payer OTHER, SELFPAY ==
[2023-05-02 09:39] LABS: Cholesterol 181 mg/dL (<200); Glucose Fasting 126 mg/dL (60-99); HDL Cholesterol 39 mg/dL (>40); LDL Cholesterol Calculated 118 mg/dL (<100); Triglycerides 121 mg/dL (<150)
[2023-05-02 11:51] LABS: Estimated Average Glucose 128 mg/dL; Hemoglobin A1c % 6.1 % (<6.0)
== END 2023-05-02 07:17 | disposition home or self-care (01) ==
LOC: HO.LAB 07:16
PROVIDERS: PCP Internal Medicine; Visit Provider Internal Medicine
DX: R73.9 Hyperglycemia, unspecified (principal); E78.5 Hyperlipidemia, unspecified
CPT/HCPCS: 36415; 80061; 82947; 83036

== ENCOUNTER 2023-05-11 14:17 | Outpatient (AMB) | payer OTHER, SELFPAY ==
[2023-05-11 14:18] VITALS: BP 130/62; PULSE 63; O2SAT 99; BMI 34.6
--- NOTE | 2023-05-11 14:18 | MHC.PC.OV ---
Vital Signs 05/11/23 14:18 Height 5 ft 11 in Weight 248 lb BMI 34.6 BP 130/62 Blood Pressure Location Rt brachial Position Sitting Pulse 63 Pulse Source Pulse Oximeter Pulse Oximetry (%) 99 Oxygen Delivery Method Room Air Intake Visit Reasons: 3 month f/u DM Allergies cat dander Allergy (Severe, Verified 05/11/23 14:18) Nasal congestion bee pollen [BEE STINGS] Allergy (Intermediate, Verified 05/11/23 14:18) SWELLING Medication List - Last Reconciled 05/12/23 by Arsalan Espinoza MD alfuzosin ER 10 mg PO DAILY amlodipine 10 mg PO DAILY aspirin (Adult Low Dose Aspirin) 81 mg PO DAILY atenolol 50 mg PO DAILY blood-glucose sensor ([employer] Edilson 3 Sensor device) As directed CPAP (CPAP Machine/Device) As directed dulaglutide (Trulicity) 0.75 mg (0.5 mL) subcut QWEEK esomeprazole magnesium 40 mg PO DAILY fluocinonide 0.05% 1 appl topical BID fluticasone propionate 50 mcg/actuation 1 spray intranasal DAILY hydrochlorothiazide 12.5 mg PO DAILY metformin 1,000 mg PO BID Tobacco use date assessed: 01/23/23 Dental Screening Dental Screen Date: 05/11/23 Did you have a dental visit in the last 12 months?: Yes Did you have a dental problem in the last 6 months where you did not have access to dental care?: No Was dental information given to patient?: Patient has dentist HPI 3 month f/u DM HPI Details DM HTN and FLORINDA; uses cpap; doing well with dm PFSH Medical History Splenomegaly Polyp of gallbladder Stroke Obesity Obesity, diabetes, and hypertension syndrome Diabetes mellitus with coincident hypertension Sleep apnea GERD (gastroesophageal reflux disease) BPH (benign prostatic hyperplasia) Hypertension Diabetes mellitus Surgical History History of laparoscopic cholecystectomy History of esophagogastroduodenoscopy (EGD) Hx of colonoscopy History of removal of cyst History of dental surgery Family History Father CAD (coronary artery disease) CVD (cardiovascular disease) Mother Breast cancer Sister Colon cancer Social History (Reviewed 05/11/23 @ 14:18 by RUBY Hinds Housing: House Are you a primary emergency care attendant to a significant other at home: No Do you presently have visiting nurse or other home services: No Alcohol intake: never Patient Tobacco Use Status: Never used Tobacco e-Cigarette/Vaping Use: Never Used Second Hand Smoke Exposure: No service: No Current occupational status: employed Cognitive needs: No Hearing needs: No Vision needs: Yes Questionnaire PHQ-9 Over the last 2 weeks, how often have you been bothered by any of the following problems? 1. Little interest or pleasure in doing things: not at all 2. Feeling down, depressed, or hopeless: not at all 3. Trouble falling or staying asleep, or sleeping too much: not at all 4. Feeling tired or having little energy: not at all 5. Poor appetite or overeating: not at all 6. Feeling bad about yourself - or that you are a failure or have let yourself or your family down: not at all 7. Trouble concentrating on things, such as reading the newspaper or watching television: not at all 8. Moving or speaking so slowly that other people could have noticed. Or the opposite - being so fidgety or restless that you have been moving around a lot more than usual: not at all 9. Thoughts that you would be better off or of hurting yourself in some way: not at all Total score: 0 Depression Screening Interpretation: Negative Depression Screening Done: Yes 74543 - PHQ-9 Billing: Yes Source: Developed by Drs. Grady Ireland, Bronwyn Perkins, Bob Galloway and colleagues, with an educational sarahy from [employer]. Thrive Questionnaire Date Thrive assessed: 10/02/22 AUDIT C Alcohol Use Questionnaire (AUDIT-C) 1. How often do you have a drink containing alcohol?: 2-4 times a month 2. How many drinks containing alcohol do you have on a typical day when you are drinking?: 3 or 4 3. How often do you have six or more drinks on one occasion?: Never Total Score: 3 Score Reviewed/Action Taken: Yes OLY-7 AMB Questionnaire OLY-7 Date OLY - 7 assessed: 10/02/22 Source: Developed by Drs. Grady Ireland, Bob Mayfieldke and colleagues, with an educational sarahy from [employer]. Review of Systems Const Denies chills, Denies headache(s) and Denies weight loss ENT Denies headache(s) Card Denies chest pain, Denies syncope, Denies irregular heart rhythm and Denies dyspnea Resp Denies chest congestion, Denies cough and Denies dyspnea GI Denies abdominal pain, Denies change in stool character, Denies nausea and Denies vomiting Musc Denies deformity and Denies joint swelling Neuro Denies syncope and Denies headache(s) Physical exam (Primary Care) Vital Signs: Last Vital Signs Pulse 63 05/11/23 14:18 BP 130/62 05/11/23 14:18 Pulse Ox 99 05/11/23 14:18 Oxygen Delivery Method Room Air 05/11/23 14:18 BMI result Body Mass Index 34.6 Tobacco/Smoking Status: Tobacco use Status Tobacco use date assessed 01/23/23 05/11/23 14:19 Patient Tobacco Use Status Never used Tobacco 05/11/23 14:19 e-Cigarette/Vaping Use Never Used 05/11/23 14:19 PHQ-9: PHQ-9 Score PHQ-9: Total score 0 05/11/23 14:19 Depression Screening Interpretation: Negative Thrive Assessment: Date of Thrive Assessment Date Thrive assessed 10/02/22 05/11/23 14:19 Const General: cooperative, comfortable, no acute distress and alert Neck Neck: Yes no lymphadenopathy Thyroid: Thyroid normal Resp Effort & Inspection: normal respiratory effort Auscultation: clear to auscultation bilaterally Percussion: percussion normal Cardio Jugular venous distension: no JVD Palpation: normal PMI Rate: regular rate Rhythm: regular rhythm Heart sounds: S1 normal heart sound present and S2 normal heart sound present GI Inspection: Yes normal to inspection Palpation (GI): No hepatosplenomegaly present Skin General skin exam: no rashes or lesions noted Extrem General: Yes no clubbing, cyanosis or edema Assessment and Plan Assessment & Plan (1) Diabetes mellitus with coincident hypertension: Code(s): E11.9 - Type 2 diabetes mellitus without complications; I10 - Essential (primary) hypertension Plan: stable; sME RX (2) FLORINDA on CPAP: Code(s): G47.33 - Obstructive sleep apnea (adult) (pediatric); Z99.89 - Dependence on other enabling machines and devices Plan: cont on rx (3) Hypertension: Code(s): I10 - Essential (primary) hypertension Plan: stable; same rx Orders: Orders Comprehensive [place]. Panel Fast Today N28.9 - Disorder of kidney and ureter, unspecified Microalbumin, Random (w Creat) Today E11.69 - Type 2 diabetes mellitus with other specified complication, E66.01 - Morbid (severe) obesity due to excess calories Lipid Panel Today E78.5 - Hyperlipidemia, unspecified Glucose Fasting Today R73.9 - Hyperglycemia, unspecified Coding Level of Care Code Est Pt Level 4 (62664) Diagnoses Diabetes mellitus with coincident hypertension E11.9; I10 FLORINDA on CPAP G47.33; Z99.89 Hypertension I10
== END 2023-05-11 14:34 | disposition home or self-care (01) ==
PROVIDERS: PCP Internal Medicine; Visit Provider Internal Medicine
DX: E11.9 Type 2 diabetes mellitus without complications (principal); I10 Essential (primary) hypertension; G47.33 Obstructive sleep apnea (adult) (pediatric); Z99.89 Dependence on other enabling machines and devices
CPT/HCPCS: 99214

== ENCOUNTER 2023-08-01 06:58 | Outpatient (REF) | payer OTHER, SELFPAY ==
[2023-08-01 08:29] LABS: Alanine Aminotransferase 17 U/L (0-40); Albumin Level 4.2 g/dL (3.5-5.0); Alkaline Phosphatase 49 U/L (39-117); Anion Gap 15 (12-20); Aspartate Amino Transferase 16 U/L (5-37); Bilirubin Total 0.5 mg/dL (0.0-1.0); Blood Urea Nitrogen 22 mg/dL (9-16); Carbon Dioxide 25 mmol/L (22-29); Chloride 104 mmol/L (96-108); Cholesterol 189 mg/dL (<200); Estimated Glomerular Filt Rate > 60; Glucose Fasting 125 mg/dL (60-99); HDL Cholesterol 36 mg/dL (>40); LDL Cholesterol Calculated 126 mg/dL (<100); Potassium 4.1 mmol/L (3.3-5.1); Sodium 140 mmol/L (135-145); Total Protein 7.1 g/dL (6.5-8.0); Triglycerides 136 mg/dL (<150)
[2023-08-01 10:09] LABS: Creatinine Urine 81.58 mg/dL; Microalbumin Urine < 5.0 mg/L
== END 2023-08-01 06:59 | disposition home or self-care (01) ==
LOC: HO.LAB 06:58
PROVIDERS: PCP Internal Medicine; Visit Provider Internal Medicine
DX: E66.01 Morbid (severe) obesity due to excess calories (principal); E11.69 Type 2 diabetes mellitus with other specified complication; N28.9 Disorder of kidney and ureter, unspecified; E78.5 Hyperlipidemia, unspecified
CPT/HCPCS: 36415; 80053; 80061; 82043; 82570

== ENCOUNTER 2023-08-06 10:31 | Outpatient (AMB) | payer OTHER, SELFPAY ==
[2023-08-06 10:33] VITALS: BP 146/70; PULSE 65; O2SAT 98; BMI 37.2
--- NOTE | 2023-08-06 10:33 | MHC.PC.OV ---
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: Not Required per policy Accompanied by: Self / Same As Patient Allergies cat dander Allergy (Severe, Verified 08/06/23 10:33) Nasal congestion bee pollen [BEE STINGS] Allergy (Intermediate, Verified 08/06/23 10:33) SWELLING Medication List - Last Reconciled 08/06/23 by Arsalan Espinoza MD alfuzosin ER 10 mg PO DAILY amlodipine 10 mg PO DAILY aspirin (Adult Low Dose Aspirin) 81 mg PO DAILY atenolol 50 mg PO DAILY blood-glucose sensor (HoneyStyle Edilson 3 Sensor device) As directed CPAP (CPAP Machine/Device) As directed dulaglutide (Trulicity) 0.75 mg (0.5 mL) subcut QWEEK esomeprazole magnesium 40 mg PO DAILY fluocinonide 0.05% 1 appl topical BID fluticasone propionate 50 mcg/actuation 1 spray intranasal DAILY hydrochlorothiazide 12.5 mg PO DAILY metformin 1,000 mg PO BID Tobacco use date assessed: 08/06/23 Dental Screening Dental Screen Date: 08/06/23 Did you have a dental visit in the last 12 months?: Yes Did you have a dental problem in the last 6 months where you did not have access to dental care?: No Was dental information given to patient?: Patient has dentist HPI 3 mth f/u HPI Details HTN FLORINDA and DM; doing well; compliant;A1C 6.7 PFSH Medical History Splenomegaly Polyp of gallbladder Stroke Obesity Obesity, diabetes, and hypertension syndrome Diabetes mellitus with coincident hypertension Sleep apnea GERD (gastroesophageal reflux disease) BPH (benign prostatic hyperplasia) Hypertension Diabetes mellitus Surgical History History of laparoscopic cholecystectomy History of esophagogastroduodenoscopy (EGD) Hx of colonoscopy History of removal of cyst History of dental surgery Family History Father CAD (coronary artery disease) CVD (cardiovascular disease) Mother Breast cancer Sister Colon cancer Social History Housing: House Are you a primary child care aide to a significant other at home: No Do you presently have visiting nurse or other home services: No Alcohol intake: never Patient Tobacco Use Status: Never used Tobacco e-Cigarette/Vaping Use: Never Used Second Hand Smoke Exposure: No service: No Current occupational status: employed Cognitive needs: No Hearing needs: No Vision needs: Yes Questionnaire PHQ-9 Over the last 2 weeks, how often have you been bothered by any of the following problems? 1. Little interest or pleasure in doing things: not at all 2. Feeling down, depressed, or hopeless: not at all 3. Trouble falling or staying asleep, or sleeping too much: not at all 4. Feeling tired or having little energy: not at all 5. Poor appetite or overeating: not at all 6. Feeling bad about yourself - or that you are a failure or have let yourself or your family down: not at all 7. Trouble concentrating on things, such as reading the newspaper or watching television: not at all 8. Moving or speaking so slowly that other people could have noticed. Or the opposite - being so fidgety or restless that you have been moving around a lot more than usual: not at all 9. Thoughts that you would be better off or of hurting yourself in some way: not at all Total score: 0 Depression Screening Interpretation: Negative Depression Screening Done: Yes 24402 - PHQ-9 Billing: Yes Source: Developed by Drs. Grady Ireland, Bronwyn Perkins, Bob Galloway and colleagues, with an educational sarahy from [employer]. Thrive Questionnaire Date Thrive assessed: 08/06/23 I am a: Patient What is your living situation today?: I have a steady place to live Within the past 12 months, did the food you bought not last and you didn't have the money to get more?: Never true Within the past 12 months, did you worry whether your food would run out before you got money to buy more?: Never true Do you have trouble paying for medicines?: No Do you have trouble getting transportation to medical appointments?: No Do you have trouble paying your heating and electricity bill?: No Do you have trouble taking care of your child, family member or friend?: No Do you have trouble with day-to-day activities such as bathing, preparing meals, shopping, managing finances, etc.?: No Are you currently unemployed and looking for a job?: No Are you interested in more education?: No Please select the resources that you would like help with: None AUDIT C Alcohol Use Questionnaire (AUDIT-C) 1. How often do you have a drink containing alcohol?: 2-4 times a month 2. How many drinks containing alcohol do you have on a typical day when you are drinking?: 3 or 4 3. How often do you have six or more drinks on one occasion?: Never Total Score: 3 Score Reviewed/Action Taken: Yes OLY-7 AMB Questionnaire OLY-7 Date OLY - 7 assessed: 08/06/23 Feeling nervous, anxious, or on edge: 0 = Not at all Not being able to stop or control worryin = Not at all Worrying too much about different things: 0 = Not at all Trouble relaxin = Not at all Being so restless that it is hard to sit still: 0 = Not at all Becoming easily annoyed or irritable: 0 = Not at all Feeling afraid as if something awful might happen: 0 = Not at all Total OLY-7 score (0-4 normal; 5-9 mild; 10-14 moderate; 15-21 severe): 0 Source: Developed by Drs. Grady Ireland, Bronwyn Perkins, Bob Galloway and colleagues, with an educational sarahy from [employer]. OLY-7 Assessment Billing OLY-7 Assessment Tool: OLY-7 Assessment 47860 Review of Systems Const Denies chills, Denies headache(s) and Denies weight loss ENT Denies headache(s) Card Denies chest pain, Denies syncope, Denies irregular heart rhythm and Denies dyspnea Resp Denies chest congestion, Denies cough and Denies dyspnea GI Denies abdominal pain, Denies change in stool character, Denies nausea and Denies vomiting Musc Denies deformity and Denies joint swelling Neuro Denies syncope and Denies headache(s) Physical exam (Primary Care) Vital Signs: Last Vital Signs Pulse 65 08/06/23 10:33 BP 146/70 H 08/06/23 10:33 Pulse Ox 98 08/06/23 10:33 Oxygen Delivery Method Room Air 08/06/23 10:33 BMI result Body Mass Index 37.2 Tobacco/Smoking Status: Tobacco use Status Tobacco use date assessed 08/06/23 08/06/23 10:34 Patient Tobacco Use Status Never used Tobacco 08/06/23 10:34 e-Cigarette/Vaping Use Never Used 08/06/23 10:34 PHQ-9: PHQ-9 Score PHQ-9: Total score 0 08/06/23 10:34 Depression Screening Interpretation: Negative Thrive Assessment: Date of Thrive Assessment Date Thrive assessed 08/06/23 08/06/23 10:34 Const General: cooperative, comfortable, no acute distress and alert Neck Neck: Yes no lymphadenopathy Thyroid: Thyroid normal Resp Effort & Inspection: normal respiratory effort Auscultation: clear to auscultation bilaterally Percussion: percussion normal Cardio Jugular venous distension: no JVD Palpation: normal PMI Rate: regular rate Rhythm: regular rhythm Heart sounds: S1 normal heart sound present and S2 normal heart sound present GI Inspection: Yes normal to inspection Palpation (GI): No hepatosplenomegaly present Skin General skin exam: no rashes or lesions noted Extrem General: Yes no clubbing, cyanosis or edema Assessment and Plan Assessment & Plan (1) Diabetes mellitus with coincident hypertension: Code(s): E11.9 - Type 2 diabetes mellitus without complications; I10 - Essential (primary) hypertension Plan: stable; same rx (2) FLORINDA on CPAP: Code(s): G47.33 - Obstructive sleep apnea (adult) (pediatric); Z99.89 - Dependence on other enabling machines and devices Plan: remain on CPAP (3) Hypertension: Code(s): I10 - Essential (primary) hypertension Plan: stable; same rx Orders: Orders Glucose Fasting Today R73.9 - Hyperglycemia, unspecified Hemoglobin A1c Today R73.9 - Hyperglycemia, unspecified Coding Level of Care Code Est Pt Level 4 (71306) Diagnoses Diabetes mellitus with coincident hypertension E11.9; I10 FLORINDA on CPAP G47.33; Z99.89 Hypertension I10 Additional Codes OLY-7 Assessment Billing - OLY-7 Assessment Tool: OLY-7 Assessment 17399 ([id number])
== END 2023-08-06 10:52 | disposition home or self-care (01) ==
PROVIDERS: PCP Internal Medicine; Visit Provider Internal Medicine
DX: E11.9 Type 2 diabetes mellitus without complications (principal); I10 Essential (primary) hypertension; G47.33 Obstructive sleep apnea (adult) (pediatric); Z99.89 Dependence on other enabling machines and devices
CPT/HCPCS: 99214

== ENCOUNTER 2023-10-07 10:54 | Outpatient (AMB) | payer OTHER, SELFPAY ==
[2023-10-07 10:54] VITALS: BP 142/80; RESP 67; O2SAT 97; BMI 37.0
--- NOTE | 2023-10-07 10:54 | A.OFFPC_ITS ---
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 per policy Accompanied by: Self / Same As Patient Allergies cat dander Allergy (Severe, Verified 10/07/23 10:54) Nasal congestion bee pollen [BEE STINGS] Allergy (Intermediate, Verified 10/07/23 10:54) SWELLING Medication List - Last Reconciled 10/07/23 by Arsalan Espinoza MD alfuzosin ER 10 mg PO DAILY amlodipine 10 mg PO DAILY aspirin (Adult Low Dose Aspirin) 81 mg PO DAILY atenolol 50 mg PO DAILY blood-glucose sensor (Teikon Edilson 3 Sensor device) As directed CPAP (CPAP Machine/Device) As directed dulaglutide (Trulicity) 0.75 mg (0.5 mL) subcut QWEEK esomeprazole magnesium 40 mg PO DAILY fluocinonide 0.05% 1 appl topical BID fluticasone propionate 50 mcg/actuation 1 spray intranasal DAILY hydrochlorothiazide 12.5 mg PO DAILY metformin 1,000 mg PO BID Tobacco use date assessed: 08/06/23 HPI Flu/Head congestion/no energy HPI Details productive cough for a week PFSH Medical History Splenomegaly Polyp of gallbladder Stroke Obesity Obesity, diabetes, and hypertension syndrome Diabetes mellitus with coincident hypertension Sleep apnea GERD (gastroesophageal reflux disease) BPH (benign prostatic hyperplasia) Hypertension Diabetes mellitus Surgical History History of laparoscopic cholecystectomy History of esophagogastroduodenoscopy (EGD) Hx of colonoscopy History of removal of cyst History of dental surgery Family History Father CAD (coronary artery disease) CVD (cardiovascular disease) Mother Breast cancer Sister Colon cancer Social History Housing: House Are you a primary hiv/aids care nurse to a significant other at home: No Do you presently have visiting nurse or other home services: No Alcohol intake: never Patient Tobacco Use Status: Never used Tobacco e-Cigarette/Vaping Use: Never Used Second Hand Smoke Exposure: No service: No Current occupational status: employed Cognitive needs: No Hearing needs: No Vision needs: Yes Questionnaire Thrive Questionnaire Date Thrive assessed: 08/06/23 OLY-7 AMB Questionnaire LOY-7 Date OLY - 7 assessed: 08/06/23 Source: Developed by Drs. Grady Ireland, Bronwyn Perkins, Bob Galloway and colleagues, with an educational sarahy from [employer]. Review of Systems Const Denies chills, Denies headache(s) and Denies weight loss ENT Denies headache(s) Card Denies chest pain, Denies syncope, Denies irregular heart rhythm and Denies dyspnea Resp Denies dyspnea GI Denies abdominal pain, Denies change in stool character, Denies nausea and Denies vomiting Musc Denies deformity and Denies joint swelling Neuro Denies syncope and Denies headache(s) Physical exam (Primary Care) Vital Signs: Last Vital Signs Resp 67 H 10/07/23 10:54 BP 142/80 H 10/07/23 10:54 Pulse Ox 97 10/07/23 10:54 Oxygen Delivery Method Room Air 10/07/23 10:54 BMI result Body Mass Index 37.0 Tobacco/Smoking Status: Tobacco use Status Tobacco use date assessed 08/06/23 10/07/23 10:55 Patient Tobacco Use Status Never used Tobacco 10/07/23 10:55 e-Cigarette/Vaping Use Never Used 10/07/23 10:55 Thrive Assessment: Date of Thrive Assessment Date Thrive assessed 08/06/23 10/07/23 10:55 Const General: cooperative, comfortable, no acute distress and alert Neck Neck: Yes no lymphadenopathy Thyroid: Thyroid normal Resp Effort & Inspection: normal respiratory effort Auscultation: clear to auscultation bilaterally Percussion: percussion normal Cardio Jugular venous distension: no JVD Palpation: normal PMI Rate: regular rate Rhythm: regular rhythm Heart sounds: S1 normal heart sound present and S2 normal heart sound present GI Inspection: Yes normal to inspection Palpation (GI): No hepatosplenomegaly present Skin General skin exam: no rashes or lesions noted Extrem General: Yes no clubbing, cyanosis or edema Assessment and Plan Assessment & Plan (1) Cough: Code(s): R05.9 - Cough, unspecified Plan: rx sent Medications: New azithromycin take 500 mg today (day 1), then 250 mg for 4 days (days 2-5) PO 6 tabs 0RF Coding Level of Care Code Est Pt Level 3 (85307) Diagnoses Cough R05.9
== END 2023-10-07 11:05 | disposition home or self-care (01) ==
LOC: HO.HMGH 10:54
PROVIDERS: PCP Internal Medicine; Visit Provider Internal Medicine
DX: R05.9 Cough, unspecified (principal)
CPT/HCPCS: 99213

== ENCOUNTER 2023-11-03 06:05 | Outpatient (REF) | payer OTHER, SELFPAY ==
[2023-11-03 10:55] LABS: Glucose Fasting 137 mg/dL (60-99)
[2023-11-03 10:58] LABS: Estimated Average Glucose 148 mg/dL; Hemoglobin A1c % 6.8 % (<6.0)
== END 2023-11-03 06:06 | disposition home or self-care (01) ==
LOC: HO.HMGCLDS 06:05
PROVIDERS: PCP Internal Medicine; Visit Provider Internal Medicine
DX: R73.9 Hyperglycemia, unspecified (principal)
CPT/HCPCS: 36415; 82947; 83036

== ENCOUNTER 2023-11-03 09:47 | Outpatient (AMB) | payer OTHER, SELFPAY ==
[2023-11-03 09:48] VITALS: BP 130/78; PULSE 64; O2SAT 97; BMI 37.9
--- NOTE | 2023-11-03 09:48 | A.OFFPC_ITS ---
Vital Signs 11/03/23 09:48 Height 5 ft 11 in Weight 272 lb BMI 37.9 BP 130/78 Blood Pressure Location Lt brachial Position Sitting Pulse 64 Pulse Source Pulse Oximeter Pulse Oximetry (%) 97 Oxygen Delivery Method Room Air Intake Visit Reasons: Annual PE/3 month f/u Intake Note: Patient is here today for a physical. 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: No Accompanied by: Self / Same As Patient Allergies cat dander Allergy (Severe, Verified 11/03/23 09:48) Nasal congestion bee pollen [BEE STINGS] Allergy (Intermediate, Verified 11/03/23 09:48) SWELLING Medication List - Last Reconciled 11/04/23 by Arsalan Espinoza MD alfuzosin ER 10 mg PO DAILY amlodipine 10 mg PO DAILY aspirin (Adult Low Dose Aspirin) 81 mg PO DAILY atenolol 50 mg PO DAILY blood-glucose sensor ([employer] Edilson 3 Sensor device) As directed CPAP (CPAP Machine/Device) As directed dulaglutide (Trulicity) 0.75 mg (0.5 mL) subcut QWEEK esomeprazole magnesium 40 mg PO DAILY fluocinonide 0.05% 1 appl topical BID fluticasone propionate 50 mcg/actuation 1 spray intranasal DAILY hydrochlorothiazide 12.5 mg PO DAILY metformin 1,000 mg PO BID Tobacco use date assessed: 11/03/23 Dental Screening Dental Screen Date: 08/06/23 Did you have a dental visit in the last 12 months?: Yes Did you have a dental problem in the last 6 months where you did not have access to dental care?: No Was dental information given to patient?: Patient has dentist HPI Annual PE/3 month f/u HPI Details DM and HTN; stable; FLORINDA on CPAP; compliant [facility] Medical History Splenomegaly Polyp of gallbladder Stroke Obesity Obesity, diabetes, and hypertension syndrome Diabetes mellitus with coincident hypertension Sleep apnea GERD (gastroesophageal reflux disease) BPH (benign prostatic hyperplasia) Hypertension Diabetes mellitus Surgical History History of laparoscopic cholecystectomy History of esophagogastroduodenoscopy (EGD) Hx of colonoscopy History of removal of cyst History of dental surgery Family History Father CAD (coronary artery disease) CVD (cardiovascular disease) Mother Breast cancer Sister Colon cancer Social History Housing: House Are you a primary residential child care counselor to a significant other at home: No Do you presently have visiting nurse or other home services: No Alcohol intake: never Patient Tobacco Use Status: Never used Tobacco e-Cigarette/Vaping Use: Never Used Second Hand Smoke Exposure: No service: No Current occupational status: employed Cognitive needs: No Hearing needs: No Vision needs: Yes Questionnaire PHQ-9 Over the last 2 weeks, how often have you been bothered by any of the following problems? 1. Little interest or pleasure in doing things: not at all 2. Feeling down, depressed, or hopeless: not at all 3. Trouble falling or staying asleep, or sleeping too much: not at all 4. Feeling tired or having little energy: not at all 5. Poor appetite or overeating: not at all 6. Feeling bad about yourself - or that you are a failure or have let yourself or your family down: not at all 7. Trouble concentrating on things, such as reading the newspaper or watching television: not at all 8. Moving or speaking so slowly that other people could have noticed. Or the opposite - being so fidgety or restless that you have been moving around a lot more than usual: not at all 9. Thoughts that you would be better off or of hurting yourself in some way: not at all Total score: 0 Depression Screening Interpretation: Negative Depression Screening Done: Yes 19485 - PHQ-9 Billing: Yes Source: Developed by Drs. Grady Ireland, Bronwyn Perkins, Bob Galloway and colleagues, with an educational sarahy from [employer]. Thrive Questionnaire Date Thrive assessed: 11/03/23 I am a: Patient What is your living situation today?: I have a steady place to live Within the past 12 months, did the food you bought not last and you didn't have the money to get more?: Never true Within the past 12 months, did you worry whether your food would run out before you got money to buy more?: Never true Do you have trouble paying for medicines?: No Do you have trouble getting transportation to medical appointments?: No Do you have trouble paying your heating and electricity bill?: No Do you have trouble taking care of your child, family member or friend?: No Do you have trouble with day-to-day activities such as bathing, preparing meals, shopping, managing finances, etc.?: No Are you currently unemployed and looking for a job?: No Are you interested in more education?: No Please select the resources that you would like help with: None Currently or been in a relationship where the following occur: no concerns reported THRIVE Score: 0 AUDIT C Alcohol Use Questionnaire (AUDIT-C) 1. How often do you have a drink containing alcohol?: 2-4 times a month 2. How many drinks containing alcohol do you have on a typical day when you are drinking?: 3 or 4 3. How often do you have six or more drinks on one occasion?: Never Total Score: 3 Score Reviewed/Action Taken: Yes OLY-7 AMB Questionnaire OYL-7 Date OLY - 7 assessed: 08/06/23 Feeling nervous, anxious, or on edge: 0 = Not at all Not being able to stop or control worryin = Not at all Worrying too much about different things: 0 = Not at all Trouble relaxin = Not at all Being so restless that it is hard to sit still: 0 = Not at all Becoming easily annoyed or irritable: 0 = Not at all Feeling afraid as if something awful might happen: 0 = Not at all Total OLY-7 score (0-4 normal; 5-9 mild; 10-14 moderate; 15-21 severe): 0 Source: Developed by Drs. Grady Ireland, Bronwyn Perkins, Bob Galloway and colleagues, with an educational sarahy from [employer]. OLY-7 Assessment Billing OLY-7 Assessment Tool: OLY-7 Assessment 11515 Review of Systems Const Denies chills, Denies fatigue, Denies headache(s) and Denies weight loss Eyes Denies change in vision, Denies diplopia and Denies eye pain ENT Denies vertigo, Denies dizziness, Denies headache(s) and Denies nasal discharge Card Denies chest pain, Denies rapid heart rate and Denies dyspnea on exertion Resp Denies chest congestion, Denies cough, Denies pain with cough and Denies dyspnea on exertion GI Denies abdominal pain, Denies hematochezia and Denies change in bowel habits Musc Denies myalgias, Denies arthralgias and Denies joint swelling Skin/Breast Denies lesions and Denies unusual bruising Neuro Denies vertigo, Denies dizziness, Denies headache(s) and Denies focal weakness Endo Denies fatigue Physical exam (Primary Care) Vital Signs: Last Vital Signs Pulse 64 11/03/23 09:48 BP 130/78 11/03/23 09:48 Pulse Ox 97 11/03/23 09:48 Oxygen Delivery Method Room Air 11/03/23 09:48 BMI result Body Mass Index 37.9 Tobacco/Smoking Status: Tobacco use Status Tobacco use date assessed 11/03/23 11/03/23 09:51 Patient Tobacco Use Status Never used Tobacco 11/03/23 09:51 e-Cigarette/Vaping Use Never Used 11/03/23 09:51 PHQ-9: PHQ-9 Score PHQ-9: Total score 0 11/03/23 10:00 Depression Screening Interpretation: Negative Thrive Assessment: Date of Thrive Assessment Date Thrive assessed 11/03/23 11/03/23 09:51 Currently or been in a relationship where the following occur: no concerns reported Const General: cooperative, healthy appearing and no acute distress Orientation/consciousness: oriented to person, oriented to place and oriented to time [facility] Head: Yes normal to inspection, Yes normocephalic and Yes atraumatic Mouth: Normal oral and palatal mucosa present and tongue normal Throat: Yes posterior oropharynx normal and Yes uvula midline Eyes General: appearance normal, both eyes and all related structures Neck Neck: Yes normal visual inspection, Yes full ROM and Yes no lymphadenopathy Thyroid: Thyroid normal Carotids: normal carotid upstroke Chest Chest palpation & inspection: normal inspection of the chest Resp Effort & Inspection: normal respiratory effort and able to speak in complete se ntences Auscultation: clear to auscultation bilaterally Cardio Jugular venous distension: no JVD Palpation: normal PMI Rate: regular rate Rhythm: regular rhythm Heart sounds: S1 normal heart sound present and S2 normal heart sound present GI Inspection: Yes normal to inspection Palpation (GI): Soft to palpation and No hepatosplenomegaly present Auscultation: normal bowel sounds General: Yes no CVA tenderness Back/Spine/Pelvis Back: no CVA tenderness Skin General skin exam: no rashes or lesions noted Neuro General: oriented to person, oriented to place and oriented to time Extrem General: Yes normal to inspection and Yes full ROM Results AMB Hemoglobin A1c AMB Hemoglobin A1c 6.8 % Last Edit by MORENITA Cuevas on 11/03/23 10:00 Results Reviewed Results Reviewed: Laboratory Last Values Hgb A1c (Clinic) 6.8 % (4.0-6.0) H 11/03/23 09:06 Assessment and Plan Assessment & Plan (1) Physical exam: Code(s): Z00.00 - Encounter for general adult medical examination without abnormal f indings Plan: stable; do labs (2) Diabetes mellitus with coincident hypertension: Code(s): E11.9 - Type 2 diabetes mellitus without complications; I10 - Essential (primary) hypertension Plan: stable; same rx (3) FLORINDA on CPAP: Code(s): G47.33 - Obstructive sleep apnea (adult) (pediatric); Z99.89 - Dependence on other enabling machines and devices Plan: cont CPAP (4) Hypertension: Code(s): I10 - Essential (primary) hypertension Plan: stable; same rx Orders: Orders AMB Hemoglobin A1c 11/03/23 E11.9 - Type 2 diabetes mellitus without complications Lipid Panel Today Z13.220 - Encounter for screening for lipoid disorders Complete Blood Count Auto Diff Today Z13.0 - Encounter for screening for diseases of the blood and blood-forming organs and certain disorders involving the immune mechanism Comprehensive [place]. Panel Fast Today Z13.9 - Encounter for screening, unspecified Microalbumin, Random (w Creat) Today E11.69 - Type 2 diabetes mellitus with other specified complication, E66.01 - Morbid (severe) obesity due to excess calories Thyroid Stimulating Hormone Today Z13.29 - Encounter for screening for other suspected endocrine disorder Coding Level of Care Code Est Pt Prev Care 40-64y([id number]) Diagnoses Physical exam Z00.00 Diabetes mellitus with coincident hypertension E11.9; I10 FLORINDA on CPAP G47.33; Z99.89 Hypertension I10 Additional Codes OLY-7 Assessment Billing - OLY-7 Assessment Tool: OLY-7 Assessment 40782 ([id number])
== END 2023-11-03 10:23 | disposition home or self-care (01) ==
PROVIDERS: PCP Internal Medicine; Visit Provider Internal Medicine
DX: E11.9 Type 2 diabetes mellitus without complications (principal)
CPT/HCPCS: 83036; 99396

== ENCOUNTER 2023-12-24 12:04 | Outpatient (AMB) | payer OTHER, SELFPAY ==
--- NOTE | 2023-12-24 12:31 | MHC.OFFWIV ---
Intake Vital Signs 12/24/23 12:32 Height 5 ft 11 in Weight 263 lb BMI 36.7 BP 130/88 Blood Pressure Location Lt brachial Position Sitting Pulse 79 Pulse Source Pulse Oximeter Temp 97.8 F Temp Source Temporal Artery Scan Pulse Oximetry (%) 96 Oxygen Delivery Method Room Air Intake Visit Reasons: EP Congestion Intake Note: pt is here today for congestion started thursday Patient Tobacco Use Status: Never used Tobacco Allergies cat dander Allergy (Severe, Verified 12/24/23 12:44) Nasal congestion bee pollen [BEE STINGS] Allergy (Intermediate, Verified 12/24/23 12:44) SWELLING Do you need a note to return to daycare/school/sports/work: Yes HPI HPI Comments History of Present Illness Details 58 y/o male patient who presents to walk in clinic with c/o sinus pressure, tenderness and cough for few days now. He has h/o polyps in the nose and uses Flonase. He has been using Mucinex with good relief. [facility] Medical History Splenomegaly Polyp of gallbladder Stroke Obesity Obesity, diabetes, and hypertension syndrome Diabetes mellitus with coincident hypertension Sleep apnea GERD (gastroesophageal reflux disease) BPH (benign prostatic hyperplasia) Hypertension Diabetes mellitus Surgical History History of laparoscopic cholecystectomy History of esophagogastroduodenoscopy (EGD) Hx of colonoscopy History of removal of cyst History of dental surgery Family History Father CAD (coronary artery disease) CVD (cardiovascular disease) Mother Breast cancer Sister Colon cancer Social History Housing: House Are you a primary nonfarm animal caretaker to a significant other at home: No Do you presently have visiting nurse or other home services: No Alcohol intake: never Patient Tobacco Use Status: Never used Tobacco e-Cigarette/Vaping Use: Never Used Second Hand Smoke Exposure: No service: No Current occupational status: employed Cognitive needs: No Hearing needs: No Vision needs: Yes Review of Systems Const All systems reviewed & are unremarkable except as noted in HPI and below Physical Exam Vital Signs: Last Vital Signs Temp 97.8 F 12/24/23 12:32 Pulse 79 12/24/23 12:32 BP 130/88 12/24/23 12:32 Pulse Ox 96 12/24/23 12:32 Oxygen Delivery Method Room Air 12/24/23 12:32 BMI result Body Mass Index 36.7 Const General: comfortable and no acute distress Nutritional Appearance: obese Orientation/consciousness: patient oriented x3 HEENT Head: Yes normocephalic Ears: external ears normal and TM abnormal bulging and with fluid behind the TM bilateral General nose exam: Abnormal mucous membranes and turbinates present boggy and erythematous Face and sinus: Yes sinuses nontender Mouth: moist mucous membranes Throat: Yes posterior oropharynx normal Resp Effort & Inspection: normal respiratory effort and able to speak in complete sentences Auscultation: clear to auscultation bilaterally Cardio Rate: regular rate Rhythm: regular rhythm Neuro General: patient oriented x3, gait normal and moves all extremities Psych Speech and movement: Normal speech and movement present Assessment & Plan Assessment & Plan (1) Allergic rhinitis: Code(s): J30.9 - Allergic rhinitis, unspecified Qualifiers: Allergic rhinitis seasonality: seasonal Allergic rhinitis trigger: pollen Qualified Code(s): J30.1 - Allergic rhinitis due to pollen Plan: - Take medications as prescribed Medications: New oxymetazoline 0.05% (Afrin (oxymetazoline)) 2 sprays intranasal Q12H PRN 22 mL 0RF nasal congestion 3 days J30.1 - Allergic rhinitis due to pollen cetirizine (Zyrtec) 10 mg PO DAILY PRN 90 tabs 0RF allergy symptoms J30.1 - Allergic rhinitis due to pollen Coding Level of Care Code Est Pt Level 3 (37685) Diagnoses Seasonal allergic rhinitis due to pollen J30.1 Allergic rhinitis seasonality: seasonal Allergic rhinitis trigger: pollen Time Spent (min) 15
[2023-12-24 12:32] VITALS: BP 130/88; PULSE 79; TEMP 36.6; O2SAT 96; BMI 36.7
== END 2023-12-24 14:04 | disposition home or self-care (01) ==
PROVIDERS: PCP Internal Medicine; Visit Provider Nurse Practitioner Family
DX: J30.1 Allergic rhinitis due to pollen (principal)
CPT/HCPCS: 99213

== ENCOUNTER 2024-02-06 06:53 | Outpatient (REF) | payer OTHER, SELFPAY ==
[2024-02-06 11:21] LABS: MANUAL DIFF FLAG NO
[2024-02-06 11:30] LABS: Basophils Absolute Auto 0.1 X10*3/uL (0.0-0.2); Basophils Percent Auto 0.9 % (0-2); Eosinophils Absolute Auto 0.6 X10*3/uL (0.0-0.4); Eosinophils Percent Auto 6.4 % (0-4); Hematocrit 39.2 % (42.0-52.0); Hemoglobin 12.9 g/dl (14.0-18.0); Imm Gran Abs Auto 0.05 X10*3/uL (0.00-0.03); Imm Gran Pct Auto 0.6 % (0.0-0.4); Lymphocytes Absolute Auto 2.2 X10*3/uL (1.2-4.9); Lymphocytes Percent Auto 25.1 % (20-40); Mean Corpuscular HGB Conc 32.9 g/dl (31.0-36.0); Mean Corpuscular Hemoglobin 28.7 pg (27.0-33.0); Mean Corpuscular Volume 87.1 fL (80.0-98.0); Mean Platelet Volume 10.3 fL (9.4-12.4); Monocytes Absolute Auto 0.8 X10*3/uL (0.1-1.2); Monocytes Percent Auto 9.3 % (2-11); Neutrophils Percent Auto 57.7 % (45-73); Platelet Count 236 X10*3/uL (160-400); Red Cell Distribution Width 13.3 % (11.0-16.0); White Blood Count 8.6 X10*3/uL (4.8-10.8)
[2024-02-06 11:59] LABS: Alanine Aminotransferase 17 U/L (0-40); Albumin Level 4.4 g/dL (3.5-5.0); Alkaline Phosphatase 49 U/L (39-117); Anion Gap 15 (12-20); Aspartate Amino Transferase 15 U/L (5-37); Bilirubin Total 0.5 mg/dL (0.0-1.0); Blood Urea Nitrogen 14 mg/dL (9-16); Calcium 9.2 mg/dL (8.4-10.2); Carbon Dioxide 23 mmol/L (22-29); Chloride 105 mmol/L (96-108); Cholesterol 186 mg/dL (<200); Estimated Glomerular Filt Rate > 60; Glucose Fasting 148 mg/dL (60-99); HDL Cholesterol 35 mg/dL (>40); LDL Cholesterol Calculated 116 mg/dL (<100); Sodium 139 mmol/L (135-145); Total Protein 7.2 g/dL (6.5-8.0); Triglycerides 178 mg/dL (<150)
[2024-02-06 12:02] LABS: Creatinine Urine 98.49 mg/dL; Microalbumin Urine < 5.0 mg/L
[2024-02-06 12:14] LABS: Thyroid Stimulating Hormone 1.44 uIU/mL (0.32-4.0)
== END 2024-02-06 06:54 | disposition home or self-care (01) ==
LOC: HO.HMGCLDS 06:53
PROVIDERS: PCP Internal Medicine; Visit Provider Internal Medicine
DX: Z13.220 Encounter for screening for lipoid disorders (principal); Z13.9 Encounter for screening, unspecified; Z13.29 Encounter for screening for other suspected endocrine disorder; Z13.0 Encounter for screening for diseases of the blood and blood-forming organs and certain disorders involving the immune mechanism; E11.69 Type 2 diabetes mellitus with other specified complication; E66.01 Morbid (severe) obesity due to excess calories; E11.9 Type 2 diabetes mellitus without complications
CPT/HCPCS: 36415; 80053; 80061; 82043; 82570; 84443; 85025

== ENCOUNTER 2024-02-08 10:10 | Outpatient (AMB) | payer OTHER, SELFPAY ==
[2024-02-08 10:16] VITALS: BP 130/72; PULSE 62; O2SAT 98; BMI 38.2
--- NOTE | 2024-02-08 10:16 | A.OFFPC_ITS ---
Vital Signs 02/08/24 10:16 Height 5 ft 11 in Weight 274 lb BMI 38.2 BP 130/72 Blood Pressure Location Lt brachial Position Sitting Pulse 62 Pulse Source Pulse Oximeter Pulse Oximetry (%) 98 Oxygen Delivery Method Room Air Intake Visit Reasons: 3mof\u Call Center Support Representative Required: No Mushroom Sorter Grader: Not Required per policy Accompanied by: Self / Same As Patient Allergies cat dander Allergy (Severe, Verified 02/08/24 10:17) Nasal congestion bee pollen [BEE STINGS] Allergy (Intermediate, Verified 02/08/24 10:17) SWELLING Medication List - Last Reconciled 02/08/24 by Arsalan Espinoza MD alfuzosin ER 10 mg PO DAILY amlodipine 10 mg PO DAILY aspirin (Adult Low Dose Aspirin) 81 mg PO DAILY atenolol 50 mg PO DAILY blood-glucose sensor (bTendoStyle Edilson 3 Sensor device) As directed cetirizine (Zyrtec) 10 mg PO DAILY PRN CPAP (CPAP Machine/Device) As directed dulaglutide (Trulicity) 0.75 mg (0.5 mL) subcut QWEEK esomeprazole magnesium 40 mg PO DAILY fluocinonide 0.05% 1 appl topical BID fluticasone propionate 50 mcg/actuation 1 spray intranasal DAILY hydrochlorothiazide 12.5 mg PO DAILY metformin 1,000 mg PO BID oxymetazoline 0.05% (Afrin (oxymetazoline)) 2 sprays intranasal Q12H PRN 3 days Tobacco use date assessed: 11/03/23 Dental Screening Dental Screen Date: 08/06/23 HPI 3mof\u HPI Details allergic rhinitis; worse than usual PFSH Medical History Splenomegaly Polyp of gallbladder Stroke Obesity Obesity, diabetes, and hypertension syndrome Diabetes mellitus with coincident hypertension Sleep apnea GERD (gastroesophageal reflux disease) BPH (benign prostatic hyperplasia) Hypertension Diabetes mellitus Surgical History History of laparoscopic cholecystectomy History of esophagogastroduodenoscopy (EGD) Hx of colonoscopy History of removal of cyst History of dental surgery Family History Father CAD (coronary artery disease) CVD (cardiovascular disease) Mother Breast cancer Sister Colon cancer Social History Housing: House Are you a primary pet care attendant to a significant other at home: No Do you presently have visiting nurse or other home services: No Alcohol intake: never Patient Tobacco Use Status: Never used Tobacco e-Cigarette/Vaping Use: Never Used Second Hand Smoke Exposure: No service: No Current occupational status: employed Cognitive needs: No Hearing needs: No Vision needs: Yes Questionnaire Thrive Questionnaire Date Thrive assessed: 11/03/23 OLY-7 AMB Questionnaire OLY-7 Date OLY - 7 assessed: 08/06/23 Source: Developed by Drs. Grady Ireland, Bronwyn Perkins, Bob Galloway and colleagues, with an educational sarahy from [employer]. Review of Systems Const Denies chills, Denies headache(s) and Denies weight loss ENT Denies headache(s) Card Denies chest pain, Denies syncope, Denies irregular heart rhythm and Denies dyspnea Resp Denies chest congestion, Denies cough and Denies dyspnea GI Denies abdominal pain, Denies change in stool character, Denies nausea and Denies vomiting Musc Denies deformity and Denies joint swelling Neuro Denies syncope and Denies headache(s) Physical exam (Primary Care) Vital Signs: Last Vital Signs Pulse 62 02/08/24 10:16 BP 130/72 02/08/24 10:16 Pulse Ox 98 02/08/24 10:16 Oxygen Delivery Method Room Air 02/08/24 10:16 BMI result Body Mass Index 38.2 Tobacco/Smoking Status: Tobacco use Status Tobacco use date assessed 11/03/23 02/08/24 10:17 Patient Tobacco Use Status Never used Tobacco 02/08/24 10:17 e-Cigarette/Vaping Use Never Used 02/08/24 10:17 Thrive Assessment: Date of Thrive Assessment Date Thrive assessed 11/03/23 02/08/24 10:17 Const General: cooperative, comfortable, no acute distress and alert Neck Neck: Yes no lymphadenopathy Thyroid: Thyroid normal Resp Effort & Inspection: normal respiratory effort Auscultation: clear to auscultation bilaterally Percussion: percussion normal Cardio Jugular venous distension: no JVD Palpation: normal PMI Rate: regular rate Rhythm: regular rhythm Heart sounds: S1 normal heart sound present and S2 normal heart sound present GI Inspection: Yes normal to inspection Palpation (GI): No hepatosplenomegaly present Skin General skin exam: no rashes or lesions noted Extrem General: Yes no clubbing, cyanosis or edema Results AMB Hemoglobin A1c AMB Hemoglobin A1c 6.9 % Last Edit by MORENITA Hinds on 02/08/24 10:31 Results Reviewed Results Reviewed: Laboratory Last Values Hgb A1c (Clinic) 6.9 % (4.0-6.0) H 02/08/24 10:17 Assessment and Plan Assessment & Plan (1) Allergic rhinitis: Code(s): J30.9 - Allergic rhinitis, unspecified Plan: rx sent Orders: Orders AMB Hemoglobin A1c Today E11.9 - Type 2 diabetes mellitus without complications, I10 - Essential (primary) hypertension Glucose Fasting Today R73.9 - Hyperglycemia, unspecified Hemoglobin A1c Today R73.9 - Hyperglycemia, unspecified Medications: New methylprednisolone (Medrol (Diego)) PO PER PKG DIR 21 ea 0RF Coding Level of Care Code Est Pt Level 3 (50654) Diagnoses Allergic rhinitis J30.9
== END 2024-02-08 10:46 | disposition home or self-care (01) ==
PROVIDERS: PCP Internal Medicine; Visit Provider Internal Medicine
DX: E11.9 Type 2 diabetes mellitus without complications (principal); I10 Essential (primary) hypertension; J30.9 Allergic rhinitis, unspecified
CPT/HCPCS: 83036; 99213

== ENCOUNTER 2024-05-07 06:34 | Outpatient (REF) | payer OTHER, SELFPAY ==
[2024-05-07 11:54] LABS: Estimated Average Glucose 160 mg/dL; Hemoglobin A1C 182.3965 umol/L; Hemoglobin A1c % 7.2 % (<6.0); Total Hemoglobin (HGBA1C) 3278.7328 umol/L
[2024-05-07 12:10] LABS: Glucose Fasting 160 mg/dL (60-99)
== END 2024-05-07 06:35 | disposition home or self-care (01) ==
LOC: HO.HMGCLDS 06:34
PROVIDERS: PCP Internal Medicine; Visit Provider Internal Medicine
DX: R73.9 Hyperglycemia, unspecified (principal)
CPT/HCPCS: 36415; 82947; 83036

== ENCOUNTER 2024-05-10 10:37 | Outpatient (AMB) | payer OTHER, SELFPAY ==
[2024-05-10 10:39] VITALS: BP 140/76; PULSE 82; O2SAT 97; BMI 38.2
--- NOTE | 2024-05-10 10:39 | MHC.PC.OV ---
Vital Signs 05/10/24 10:39 Height 5 ft 11 in Weight 274 lb BMI 38.2 BP 140/76 H Blood Pressure Location Lt brachial Position Sitting Pulse 82 Pulse Source Pulse Oximeter Pulse Oximetry (%) 97 Oxygen Delivery Method Room Air Intake Visit Reasons: 3mth f/u Pull Worker Required: No Accompanied by: Self / Same As Patient Allergies cat dander Allergy (Severe, Verified 05/10/24 10:40) Nasal congestion bee pollen [BEE STINGS] Allergy (Intermediate, Verified 05/10/24 10:40) SWELLING Medication List - Last Reconciled 05/11/24 by Arsalan Espinoza MD alfuzosin ER 10 mg PO DAILY amlodipine 10 mg PO DAILY aspirin (Adult Low Dose Aspirin) 81 mg PO DAILY atenolol 50 mg PO DAILY blood-glucose sensor (FreeStyle Edilson 3 Sensor device) As directed cetirizine (Zyrtec) 10 mg PO DAILY PRN CPAP (CPAP Machine/Device) As directed dulaglutide (Trulicity) 0.75 mg (0.5 mL) subcut QWEEK esomeprazole magnesium 40 mg PO DAILY fluocinonide 0.05% 1 appl topical BID fluticasone propionate 50 mcg/actuation 1 spray intranasal DAILY hydrochlorothiazide 12.5 mg PO DAILY metformin 1,000 mg PO BID Tobacco use date assessed: 11/03/23 Dental Screening Dental Screen Date: 08/06/23 HPI 3mth f/u HPI Details diabetes on rx; dietary indiscretion; compliant with meds [facility] Medical History (Updated 05/11/24 @ 08:46 by Arsalan Espinoza MD) Splenomegaly Polyp of gallbladder Stroke Obesity Obesity, diabetes, and hypertension syndrome Diabetes mellitus with coincident hypertension Sleep apnea GERD (gastroesophageal reflux disease) BPH (benign prostatic hyperplasia) Hypertension Diabetes mellitus Surgical History History of laparoscopic cholecystectomy History of esophagogastroduodenoscopy (EGD) Hx of colonoscopy History of removal of cyst History of dental surgery Family History Father CAD (coronary artery disease) CVD (cardiovascular disease) Mother Breast cancer Sister Colon cancer Social History Housing: House Are you a primary pharmacist critical care to a significant other at home: No Do you presently have visiting nurse or other home services: No Alcohol intake: never Patient Tobacco Use Status: Never used Tobacco Tobacco use type: Cigarette e-Cigarette/Vaping Use: Never Used Second Hand Smoke Exposure: No service: No Current occupational status: employed Cognitive needs: No Hearing needs: No Vision needs: Yes Questionnaire PHQ-9 Over the last 2 weeks, how often have you been bothered by any of the following problems? 1. Little interest or pleasure in doing things: not at all 2. Feeling down, depressed, or hopeless: not at all 3. Trouble falling or staying asleep, or sleeping too much: not at all 4. Feeling tired or having little energy: not at all 5. Poor appetite or overeating: not at all 6. Feeling bad about yourself - or that you are a failure or have let yourself or your family down: not at all 7. Trouble concentrating on things, such as reading the newspaper or watching television: not at all 8. Moving or speaking so slowly that other people could have noticed. Or the opposite - being so fidgety or restless that you have been moving around a lot more than usual: not at all 9. Thoughts that you would be better off or of hurting yourself in some way: not at all Total score: 0 Depression Screening Interpretation: Negative Depression Screening Done: Yes 67549 - PHQ-9 Billing: Yes Source: Developed by Drs. Grady Ireland, Bob Mayfield and colleagues, with an educational sarahy from [email or web address]. Thrive Questionnaire Date Thrive assessed: 11/03/23 AUDIT C Alcohol Use Questionnaire (AUDIT-C) 1. How often do you have a drink containing alcohol?: 2-4 times a month 2. How many drinks containing alcohol do you have on a typical day when you are drinking?: 3 or 4 3. How often do you have six or more drinks on one occasion?: Never Total Score: 3 Score Reviewed/Action Taken: Yes OLY-7 AMB Questionnaire OLY-7 Date OLY - 7 assessed: 08/06/23 Source: Developed by Drs. Grady Ireland, Bob Mayfield and colleagues, with an educational sarahy from [email or web address]. Review of Systems Const Denies chills, Denies headache(s) and Denies weight loss ENT Denies headache(s) Card Denies chest pain, Denies syncope, Denies irregular heart rhythm and Denies dyspnea Resp Denies chest congestion, Denies cough and Denies dyspnea GI Denies abdominal pain, Denies change in stool character, Denies nausea and Denies vomiting Musc Denies deformity and Denies joint swelling Neuro Denies syncope and Denies headache(s) Physical exam (Primary Care) Vital Signs: Last Vital Signs Pulse 82 05/10/24 10:39 BP 140/76 H 05/10/24 10:39 Pulse Ox 97 05/10/24 10:39 Oxygen Delivery Method Room Air 05/10/24 10:39 BMI result Body Mass Index 38.2 Tobacco/Smoking Status: Tobacco use Status Tobacco use date assessed 11/03/23 05/10/24 10:46 Patient Tobacco Use Status Never used Tobacco 05/10/24 10:46 Tobacco use type Cigarette 05/10/24 10:46 e-Cigarette/Vaping Use Never Used 05/10/24 10:46 PHQ-9: PHQ-9 Score PHQ-9: Total score 0 05/10/24 10:46 Depression Screening Interpretation: Negative Thrive Assessment: Date of Thrive Assessment Date Thrive assessed 11/03/23 05/10/24 10:46 Const General: cooperative, comfortable, no acute distress and alert Neck Neck: Yes no lymphadenopathy Thyroid: Thyroid normal Resp Effort & Inspection: normal respiratory effort Auscultation: clear to auscultation bilaterally Percussion: percussion normal Cardio Jugular venous distension: no JVD Palpation: normal PMI Rate: regular rate Rhythm: regular rhythm Heart sounds: S1 normal heart sound present and S2 normal heart sound present GI Inspection: Yes normal to inspection Palpation (GI): No hepatosplenomegaly present Skin General skin exam: no rashes or lesions noted Extrem General: Yes no clubbing, cyanosis or edema Coding Level of Care Code Est Pt Level 3 (32061) Diagnoses Diabetes mellitus E11.9 Assessment & Plan Assessment & Plan (1) Diabetes mellitus: Code(s): E11.9 - Type 2 diabetes mellitus without complications Category: Medical Plan: same meds; do labs; improve diet Orders: Orders Lipid Panel Today Z13.220 - Encounter for screening for lipoid disorders Hemoglobin A1c Today R73.9 - Hyperglycemia, unspecified Comprehensive [place]. Panel Fast Today Z13.9 - Encounter for screening, unspecified
== END 2024-05-10 11:00 | disposition home or self-care (01) ==
PROVIDERS: PCP Internal Medicine; Visit Provider Internal Medicine
DX: E11.9 Type 2 diabetes mellitus without complications (principal)

== ENCOUNTER → 2024-05-10 10:37 | Outpatient (BNVA) | payer OTHER, SELFPAY | PROVIDERS: PCP Internal Medicine; Visit Provider Internal Medicine ==

== ENCOUNTER 2024-08-04 06:20 | Outpatient (REF) | payer OTHER, SELFPAY ==
[2024-08-04 10:58] LABS: Estimated Average Glucose 157 mg/dL; Hemoglobin A1C 186.7831 umol/L; Hemoglobin A1c % 7.1 % (<6.0); Total Hemoglobin (HGBA1C) 3450.1809 umol/L
[2024-08-04 10:59] LABS: Alanine Aminotransferase 34 U/L (0-40); Albumin Level 4.4 g/dL (3.5-5.0); Alkaline Phosphatase 51 U/L (39-117); Anion Gap 9 (12-20); Aspartate Amino Transferase 27 U/L (5-37); Bilirubin Total 0.3 mg/dL (0.0-1.0); Blood Urea Nitrogen 16 mg/dL (9-16); Calcium 8.7 mg/dL (8.4-10.2); Carbon Dioxide 26 mmol/L (22-29); Chloride 108 mmol/L (96-108); Cholesterol 200 mg/dL (<200); Estimated Glomerular Filt Rate > 60; Glucose Fasting 146 mg/dL (60-99); HDL Cholesterol 35 mg/dL (>40); LDL Cholesterol Calculated 115 mg/dL (<100); Potassium 4.3 mmol/L (3.3-5.1); Sodium 139 mmol/L (135-145); Total Protein 7.4 g/dL (6.5-8.0); Triglycerides 252 mg/dL (<150)
== END 2024-08-04 06:21 | disposition home or self-care (01) ==
LOC: HO.HMGCLDS 06:20
PROVIDERS: PCP Internal Medicine; Visit Provider Internal Medicine
DX: R73.9 Hyperglycemia, unspecified (principal); Z13.220 Encounter for screening for lipoid disorders
CPT/HCPCS: 36415; 80053; 80061; 83036

== ENCOUNTER 2024-08-10 11:09 | Outpatient (AMB) | payer OTHER, SELFPAY ==
--- NOTE | 2024-08-10 11:19 | MHC.PC.OV ---
Vital Signs 08/10/24 11:21 Height 5 ft 11 in Weight 283 lb 4.704 oz BMI 39.5 BP 140/70 H Blood Pressure Location Lt brachial Position Sitting Temp 97.3 F Temp Source Skin Intake Visit Reasons: 3mth f/u Intake Note: Patient is here to follow up on DM, HTN. Vice President Of Manufacturing Required: No Welfare Visitor: Not Required per policy Accompanied by: Self / Same As Patient Allergies cat dander Allergy (Severe, Verified 08/10/24 11:20) Nasal congestion bee pollen [BEE STINGS] Allergy (Intermediate, Verified 08/10/24 11:20) SWELLING Medication List - Last Reconciled 08/10/24 by Arsalan Espinoza MD alfuzosin ER 10 mg PO DAILY amlodipine 10 mg PO DAILY aspirin (Adult Low Dose Aspirin) 81 mg PO DAILY atenolol 50 mg PO DAILY blood-glucose sensor (FreeStyle Edilson 3 Sensor device) As directed cetirizine (Zyrtec) 10 mg PO DAILY PRN CPAP (CPAP Machine/Device) As directed dulaglutide (Trulicity) 0.75 mg (0.5 mL) subcut QWEEK esomeprazole magnesium 40 mg PO DAILY fluocinonide 0.05% 1 appl topical BID fluticasone propionate 50 mcg/actuation 1 spray intranasal DAILY hydrochlorothiazide 12.5 mg PO DAILY metformin 1,000 mg PO BID Tobacco use date assessed: 08/10/24 Dental Screening Dental Screen Date: 08/10/24 Did you have a dental visit in the last 12 months?: Yes Did you have a dental problem in the last 6 months where you did not have access to dental care?: No Was dental information given to patient?: Patient has dentist HPI 3mth f/u HPI Details diabetes hypertension FLORINDA; A1C improving [facility] Medical History (Updated 05/11/24 @ 08:46 by Arsalan Espinoza MD) Splenomegaly Polyp of gallbladder Stroke Obesity Obesity, diabetes, and hypertension syndrome Diabetes mellitus with coincident hypertension Sleep apnea GERD (gastroesophageal reflux disease) BPH (benign prostatic hyperplasia) Hypertension Diabetes mellitus Surgical History History of laparoscopic cholecystectomy History of esophagogastroduodenoscopy (EGD) Hx of colonoscopy History of removal of cyst History of dental surgery Family History Father CAD (coronary artery disease) CVD (cardiovascular disease) Mother Breast cancer Sister Colon cancer Social History Housing: House Are you a primary client care representative to a significant other at home: No Do you presently have visiting nurse or other home services: No Alcohol intake: never Patient Tobacco Use Status: Never used Tobacco Tobacco use type: Cigarette e-Cigarette/Vaping Use: Never Used Second Hand Smoke Exposure: No service: No Current occupational status: employed Cognitive needs: No Hearing needs: No Vision needs: Yes (Glasses) Questionnaire PHQ-9 Over the last 2 weeks, how often have you been bothered by any of the following problems? 1. Little interest or pleasure in doing things: not at all 2. Feeling down, depressed, or hopeless: not at all 3. Trouble falling or staying asleep, or sleeping too much: not at all 4. Feeling tired or having little energy: not at all 5. Poor appetite or overeating: not at all 6. Feeling bad about yourself - or that you are a failure or have let yourself or your family down: not at all 7. Trouble concentrating on things, such as reading the newspaper or watching television: not at all 8. Moving or speaking so slowly that other people could have noticed. Or the opposite - being so fidgety or restless that you have been moving around a lot more than usual: not at all 9. Thoughts that you would be better off or of hurting yourself in some way: not at all Total score: 0 Depression Screening Interpretation: Negative Depression Screening Done: Yes Source: Developed by Drs. Grady Ireland, Bronwyn Perkins, Bob Galloway and colleagues, with an educational sarahy from [employer]. Thrive Questionnaire Date Thrive assessed: 08/10/24 I am a: Patient What is your living situation today?: I have a steady place to live Within the past 12 months, did the food you bought not last and you didn't have the money to get more?: Never true Within the past 12 months, did you worry whether your food would run out before you got money to buy more?: Never true Do you have trouble paying for medicines?: No Do you have trouble getting transportation to medical appointments?: No Do you have trouble paying your heating and electricity bill?: No Do you have trouble taking care of your child, family member or friend?: No Do you have trouble with day-to-day activities such as bathing, preparing meals, shopping, managing finances, etc.?: No Are you currently unemployed and looking for a job?: No Are you interested in more education?: No Please select the resources that you would like help with: None Currently or been in a relationship where the following occur: No concerns reported THRIVE Score: 0 AUDIT C Alcohol Use Questionnaire (AUDIT-C) 1. How often do you have a drink containing alcohol?: Monthly or less 2. How many drinks containing alcohol do you have on a typical day when you are drinking?: 1 or 2 3. How often do you have six or more drinks on one occasion?: Never Total Score: 1 OLY-7 AMB Questionnaire OLY-7 Date OLY - 7 assessed: 08/10/24 Feeling nervous, anxious, or on edge: 0 = Not at all Not being able to stop or control worryin = Not at all Worrying too much about different things: 0 = Not at all Trouble relaxin = Not at all Being so restless that it is hard to sit still: 0 = Not at all Becoming easily annoyed or irritable: 0 = Not at all Feeling afraid as if something awful might happen: 0 = Not at all Total OLY-7 score (0-4 normal; 5-9 mild; 10-14 moderate; 15-21 severe): 0 Source: Developed by Drs. Grady Ireland, Bronwyn Perkins, Bob Galloway and colleagues, with an educational sarahy from [employer]. Review of Systems Const Denies chills, Denies headache(s) and Denies weight loss ENT Denies headache(s) Card Denies chest pain, Denies syncope, Denies irregular heart rhythm and Denies dyspnea Resp Denies chest congestion, Denies cough and Denies dyspnea GI Denies abdominal pain, Denies change in stool character, Denies nausea and Denies vomiting Musc Denies deformity and Denies joint swelling Neuro Denies syncope and Denies headache(s) Physical exam (Primary Care) Vital Signs: Last Vital Signs Temp 97.3 F 08/10/24 11:21 BP 140/70 H 08/10/24 11:21 BMI result Body Mass Index 39.5 Tobacco/Smoking Status: Tobacco use Status Tobacco use date assessed 08/10/24 08/10/24 11:26 Patient Tobacco Use Status Never used Tobacco 08/10/24 11:26 Tobacco use type Cigarette 08/10/24 11:26 e-Cigarette/Vaping Use Never Used 08/10/24 11:26 PHQ-9: PHQ-9 Score PHQ-9: Total score 0 08/10/24 11:26 Depression Screening Interpretation: Negative Thrive Assessment: Date of Thrive Assessment Date Thrive assessed 08/10/24 08/10/24 11:26 Currently or been in a relationship where the following occur: No concerns reported Const General: cooperative, comfortable, no acute distress and alert Neck Neck: Yes no lymphadenopathy Thyroid: Thyroid normal Resp Effort & Inspection: normal respiratory effort Auscultation: clear to auscultation bilaterally Percussion: percussion normal Cardio Jugular venous distension: no JVD Palpation: normal PMI Rate: regular rate Rhythm: regular rhythm Heart sounds: S1 normal heart sound present and S2 normal heart sound present GI Inspection: Yes normal to inspection Palpation (GI): No hepatosplenomegaly present Skin General skin exam: no rashes or lesions noted Extrem General: Yes no clubbing, cyanosis or edema Coding Level of Care Code Est Pt Level 3 (67051) Diagnoses Diabetes mellitus with coincident hypertension E11.9; I10 Assessment & Plan Assessment & Plan (1) Diabetes mellitus with coincident hypertension: Code(s): E11.9 - Type 2 diabetes mellitus without complications; I10 - Essential (primary) hypertension Category: Medical Plan: stable; same rx Orders: Orders XR knee RT 2V Today M25.569 - Pain in unspecified knee
[2024-08-10 11:21] VITALS: BP 140/70; TEMP 36.3; BMI 39.5
--- OUTSIDE RECORDS SUMMARY | 2024-08-10 12:48 | XMS_ITS | Patient Health Record ---
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 Name Role Phone Arsalan Espinoza MD Primary Care Provider Benja Slaughter Jr Unavailable ALLERGIES No Known Allergies REASON FOR REFERRAL No Information MEDICATIONS Medication SIG (Take, Route, Frequency, Duration) Notes Start Date End Date Status Alfuzosin HCl 10 MG Orally Active amLODIPine Besylate 10 MG 1 tablet Orall y Once a day Active Clobetasol Propionate 0.05 % 1 applicati on to affected area Externally Twice a day Active Aspirin Adult Low Dose 81 MG 1 tablet Or ally Once a day Active Fluticasone Propionate 50 MCG/ACT USE 1 SPRAY IN EACH NOSTRIL DAILY Nasal for 60 Active hydroCHLOROthiazide 12.5 MG TAKE 1 TABLE T BY MOUTH EVERY DAY IN THE MORNING Oral for 90 Active Ciclopirox 1 % USE 2 3 TIMES A WEEK DIRECTED. External for 30 Active Atenolol 50 MG 1 tablet Orally Once a day Active Famotidine 40 MG 1 tablet at bedtime Orally Once a day for 30 day(s) 08/21/2022 Active metFORMIN HCl 1000 MG 1 tablet with meal s Orally Twice a day Active MiraLax (colon prep) 17 GM/SCOOP mixed with Gatorade or Crystal Light Orally begin at 5:00 p.m. 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 (Z79.82) Active confirmed 804152290 Problem Gastroesophageal reflux disease without esophagitis (K21.9) Active confirmed 694325706 Problem Gallbladder polyp (K82.4) Active confirmed 409994183 PLAN OF TREATMENT Pending Test Test Name Order Date US ABD 08/21/2022 Future Test Test Name Order Date UPPER GI ENDOSCOPY 03/18/2017 COLONOSCOPY 03/18/2017 UPPER GI ENDOSCOPY 08/09/2020 COLONOSCOPY 08/21/2022 Insurance Providers Payer Name Payer Address Payer Phone Subscriber Number Group Number Insured Name Patient Relationship to Insured Coverage Start Date Coverage End Date [facility] [address] [place] [phone] [id number] TONA SINGH Self - patient is the insured MEDICAL (GENERAL) HISTORY Medical History History ICD Code gastroesophageal reflux dise ase, upper endoscopy 09/09, fundic gland polyps, no H. pylori or Huggins's. colonoscopy 06/05, small tubular adenoma , five-year followup diabetes mellitus hypertension mild stroke 06/2016 sleep apnea Surgical History Surgery Date(Month/Year) skin tag removed cyst removal
== END 2024-08-10 11:45 | disposition home or self-care (01) ==
PROVIDERS: PCP Internal Medicine; Visit Provider Internal Medicine
DX: E11.9 Type 2 diabetes mellitus without complications (principal); I10 Essential (primary) hypertension

== ENCOUNTER 2024-08-16 06:57 | Outpatient (REF) | payer OTHER, SELFPAY ==
--- NOTE | ~2024-08-16 | XR_ITS ---
CLINICAL HISTORY: M25.569 - Pain in unspecified knee AP and lateral views right knee Comparison: None Findings: No fractures, subluxations or dislocations. Small posterior patellar and superior patellar enthesophytes. Mild joint space narrowing medial knee compartment. No osteochondral lesions or loose bodies. Normal patellar alignment. No suprapatellar joint effusion.No prepatellar soft tissue swelling. Moderate calcified atherosclerotic disease. No unusual radiopaque foreign body. Impression: 1. Mild joint space narrowing medial knee compartment. 2. Small patellar enthesophytes. Calcified atherosclerotic disease. This document has been electronically signed by: Bernardo Whittaker MD on 08/16/2024 12:06:19
--- OUTSIDE RECORDS SUMMARY | 2024-08-16 07:00 | XMS_ITS | Patient Health Record ---
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 (Z79.82) Active confirmed 263186429 Problem Gastroesophageal reflux disease without esophagitis (K21.9) Active confirmed 252123662 Problem Gallbladder polyp (K82.4) Active confirmed 379857905 PLAN OF TREATMENT Pending Test Test Name Order Date US ABD 08/21/2022 Future Test Test Name Order Date UPPER GI ENDOSCOPY 03/18/2017 COLONOSCOPY 03/18/2017 UPPER GI ENDOSCOPY 08/09/2020 COLONOSCOPY 08/21/2022 Insurance Providers Payer Name Payer Address Payer Phone Subscriber Number Group Number Insured Name Patient Relationship to Insured Coverage Start Date Coverage End Date [facility] [address] [place] [phone] [id number] TONA SINGH Self - patient is the insured MEDICAL (GENERAL) HISTORY Medical History History ICD Code gastroesophageal reflux dise ase, upper endoscopy 09/09, fundic gland polyps, no H. pylori or Huggins's. colonoscopy 06/05, small tubular adenoma , five-year followup diabetes mellitus hypertension mild stroke 06/2016 sleep apnea Surgical History Surgery Date(Month/Year) skin tag removed cyst removal
== END 2024-08-16 06:58 | disposition home or self-care (01) ==
LOC: HO.XRAY 06:57
PROVIDERS: PCP Internal Medicine; Visit Provider Internal Medicine
DX: M25.561 Pain in right knee (principal)
CPT/HCPCS: 73560

== ENCOUNTER → 2024-08-16 07:06 | Outpatient (BNV) | payer OTHER, SELFPAY | PROVIDERS: PCP Internal Medicine; Visit Provider Radiology Diagnostic Radiology | DX: M25.561 Pain in right knee (principal) | CPT/HCPCS: 73560 ==

== ENCOUNTER 2024-10-05 06:27 | Outpatient (REF) | payer OTHER, SELFPAY ==
--- NOTE | ~2024-10-05 | XR_ITS ---
EXAMINATION: XR KNEE 1-2 VIEWS RIGHT HISTORY: M25.569 - Pain in unspecified knee COMPARISON: Comparison is made with the prior examination dated 08/16/2024. FINDINGS: Standing AP views of both knees and an additional sunrise patellar view of the right knee are submitted. Osseous mineralization is normal. There is no fracture or dislocation. There is mild narrowing of medial compartment of the right knee. The soft tissues are unremarkable. XR/XR knee RT 2V IMPRESSION: Mild narrowing of the medial compartment. Electronically signed by: Grady Harding MD 10/05/2024 12:52 PM EDT
== END 2024-10-05 06:28 | disposition home or self-care (01) ==
LOC: HO.HOSX 06:27
PROVIDERS: Visit Provider Physician Assistant
DX: M25.561 Pain in right knee (principal)
CPT/HCPCS: 20610; 73560; J1010; J2003

== ENCOUNTER 2024-10-05 08:15 | Outpatient (AMB) | payer OTHER, SELFPAY ==
--- NOTE | 2024-10-05 08:24 | A.OFFVIS_ITS ---
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 Patient reports having bilateral knee pain with the right knee being the worse. States his pain has been present for about a year and is located at the medial and lateral aspect of knee. Constant pain that improves when he is moving around, stating his pain is worse getting up in the mornings. No previous tx. Allergies cat dander Allergy (Severe, Verified 10/05/24 08:38) Nasal congestion bee pollen [BEE STINGS] Allergy (Intermediate, Verified 10/05/24 08:38) SWELLING Medication List - Last Reconciled 10/05/24 by Jay Will PA-C alfuzosin ER 10 mg PO DAILY amlodipine 10 mg PO DAILY aspirin (Adult Low Dose Aspirin) 81 mg PO DAILY atenolol 50 mg PO DAILY blood-glucose sensor ([employer] Edilson 3 Sensor device) As directed blood-glucose sensor (Dexcom G7 Sensor device) As directed cetirizine (Zyrtec) 10 mg PO DAILY PRN CPAP (CPAP Machine/Device) As directed dulaglutide (Trulicity) 0.75 mg (0.5 mL) subcut QWEEK esomeprazole magnesium 40 mg PO DAILY fluocinonide 0.05% 1 appl topical BID fluticasone propionate 50 mcg/actuation 1 spray intranasal DAILY hydrochlorothiazide 12.5 mg PO DAILY metformin 1,000 mg PO BID HPI 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 He denies injury. He states the stiffness is worse when he first gets up, he has pain with long distance walking. Difficulty with stairs. Has tried NSAIDS without relief [facility] Medical History (Updated 10/05/24 @ 08:51 by Jay Will PA-C) Splenomegaly Polyp of gallbladder Stroke Obesity Obesity, diabetes, and hypertension syndrome Diabetes mellitus with coincident hypertension Sleep apnea GERD (gastroesophageal reflux disease) BPH (benign prostatic hyperplasia) Hypertension Diabetes mellitus Surgical History History of laparoscopic cholecystectomy History of esophagogastroduodenoscopy (EGD) Hx of colonoscopy History of removal of cyst History of dental surgery Family History Father CAD (coronary artery disease) CVD (cardiovascular disease) Mother Breast cancer Sister Colon cancer Social History (Updated 10/05/24 @ 08:34 by Mari Toney Natalie) Housing: House Are you a primary care process manager to a significant other at home: No Do you presently have visiting nurse or other home services: No Alcohol intake: never Patient Tobacco Use Status: Never used Tobacco Tobacco use type: Cigarette e-Cigarette/Vaping Use: Never Used Second Hand Smoke Exposure: No service: No Current occupational status: employed Current occupation: [employer] Cognitive needs: No Hearing needs: No Vision needs: Yes (Glasses) Review of Systems Const All systems reviewed & are unremarkable except as noted in HPI and below Physical Exam Vital Signs: BMI result Body Mass Index 39.5 Const General: cooperative and no acute distress Orientation/consciousness: patient oriented x3 Resp Effort & Inspection: normal respiratory effort and able to speak in complete sentences Cardio Peripheral pulses: Peripheral pulses 2+ throughout Neuro General: patient oriented x3 Extrem Other: Left knee skin intact, no erythema or joint effusion. Tenderness along the medial joint line and lateral retropatellar tenderness . ROM full with crepitus. Negative steinmans. No ligamentous laxity. NVI. Results Reviewed Results Reviewed: Xrays were obtained in the office today and personally reviewed by me Assessment & Plan Assessment & Plan (1) Osteoarthritis of left knee: Code(s): M17.12 - Unilateral primary osteoarthritis, left knee Category: Medical Plan: We discussed options today which include physical therapy to work on strengthening and conditioning exercises. We also discussed the benefits of a steroid injection. Is diabetic and is on metformin and Trulicity. He states his sugars are well controlled. I explained the effects this can have on his blood glucose levels causing them to elevate. He expressed interest in having the injection today which we did perform and he tolerated well. I informed him to monitor his sugar levels over the next 72 hours and if they get to a point where he is unable to control them he needs to go to the emergency department for further evaluation. Patient is content with this plan and will see me back in 6-8 weeks if symptoms persist or worsen otherwise follow up as needed. Orders: Orders XR knee RT 2V Today M25.569 - Pain in unspecified knee PT Evaluation and Treatment Today M17.12 - Unilateral primary osteoarthritis, left knee XR knee LT 1V Today M25.562 - Pain in left knee Coding Level of Care Code New Pt Level 3 (74023) Complex EM visit Add On G2211 Diagnoses Osteoarthritis of left knee M17.12
[2024-10-05 08:38] VITALS: BMI 39.5
== END 2024-10-05 09:16 | disposition home or self-care (01) ==
LOC: HO.HOS 08:16
PROVIDERS: PCP Internal Medicine; Visit Provider Physician Assistant
DX: M17.12 Unilateral primary osteoarthritis, left knee (principal)
CPT/HCPCS: 20610; 99203

== ENCOUNTER → 2024-10-05 08:17 | Outpatient (BNV) | payer OTHER, SELFPAY | PROVIDERS: Visit Provider Radiology Diagnostic Radiology | DX: M25.561 Pain in right knee (principal) | CPT/HCPCS: 73560 ==

== ENCOUNTER 2024-11-08 15:41 | Outpatient (AMB) | payer OTHER, SELFPAY ==
[2024-11-08 15:53] VITALS: BP 134/74; PULSE 69; RESP 18; TEMP 37; O2SAT 96; BMI 38.4
--- NOTE | 2024-11-08 15:53 | MHC.PC.OV ---
Vital Signs 11/08/24 15:53 Height 5 ft 11 in Weight 275 lb BMI 38.4 BP 134/74 Blood Pressure Location Lt brachial Position Sitting Respiration 18 Pulse 69 Pulse Source Pulse Oximeter Temp 98.6 F Temp Source Oral Pulse Oximetry (%) 96 Oxygen Delivery Method Room Air Intake Visit Reasons: Transfer from [address] Animal Care Assistant Required: No Accompanied by: Self / Same As Patient Allergies cat dander Allergy (Severe, Verified 11/10/24 07:25) Nasal congestion bee pollen [BEE STINGS] Allergy (Intermediate, Verified 11/08/24 15:56) SWELLING Tobacco use date assessed: 11/08/24 Dental Screening Dental Screen Date: 11/08/24 Did you have a dental visit in the last 12 months?: Yes Did you have a dental problem in the last 6 months where you did not have access to dental care?: No Was dental information given to patient?: Patient has dentist HPI Transfer from [address] HPI Details The patient is a 58-year-old male with significant past medical history of diabetes mellitus with coincident hypertension, FLORINDA on CPAP, allergic rhinitis, and left knee osteoarthritis The patient did not get his blood work done ordered for this visit. A1c done in office was 7.2%. The patient denies chest pain, shortness of breath, heart palpitation or dizziness. The patient denies any change in bowel habits or any urinary symptoms. Encouraged the patient to get his labs done as soon as possible. [facility] Medical History Splenomegaly Polyp of gallbladder Stroke Obesity Obesity, diabetes, and hypertension syndrome Diabetes mellitus with coincident hypertension Sleep apnea GERD (gastroesophageal reflux disease) BPH (benign prostatic hyperplasia) Hypertension Diabetes mellitus Surgical History History of laparoscopic cholecystectomy History of esophagogastroduodenoscopy (EGD) Hx of colonoscopy History of removal of cyst History of dental surgery Family History Father CAD (coronary artery disease) CVD (cardiovascular disease) Mother Breast cancer Sister Colon cancer Social History Housing: House Are you a primary rn progressive care unit to a significant other at home: No Do you presently have visiting nurse or other home services: No Alcohol intake: never Patient Tobacco Use Status: Never used Tobacco Tobacco use type: Cigarette e-Cigarette/Vaping Use: Never Used Second Hand Smoke Exposure: No service: No Current occupational status: employed Current occupation: [employer] Cognitive needs: No Hearing needs: No Vision needs: Yes (Glasses) Questionnaire Thrive Questionnaire Date Thrive assessed: 11/08/24 I am a: Patient What is your living situation today?: I have a steady place to live Within the past 12 months, did the food you bought not last and you didn't have the money to get more?: Never true Within the past 12 months, did you worry whether your food would run out before you got money to buy more?: Never true Do you have trouble paying for medicines?: No Do you have trouble getting transportation to medical appointments?: No Do you have trouble paying your heating and electricity bill?: No Do you have trouble taking care of your child, family member or friend?: No Do you have trouble with day-to-day activities such as bathing, preparing meals, shopping, managing finances, etc.?: No Are you currently unemployed and looking for a job?: No Are you interested in more education?: No Please select the resources that you would like help with: None Currently or been in a relationship where the following occur: No concerns reported THRIVE Score: 0 AUDIT C Alcohol Use Questionnaire (AUDIT-C) 1. How often do you have a drink containing alcohol?: 2-4 times a month 2. How many drinks containing alcohol do you have on a typical day when you are drinking?: 1 or 2 3. How often do you have six or more drinks on one occasion?: Never Total Score: 2 Score Reviewed/Action Taken: No OLY-7 AMB Questionnaire OLY-7 Date OLY - 7 assessed: 08/10/24 Source: Developed by Drs. Grady Ireland, Bronwyn Perkins, Bob Galloway and colleagues, with an educational sarahy from [employer]. Review of Systems Const Denies headache(s) Eyes Denies loss of vision ENT Denies vertigo, Denies dizziness, Denies headache(s) and Denies sore throat Card Denies chest pain, Denies leg edema and Denies lightheadedness Resp Denies cough, Denies hemoptysis and Denies wheezing GI Denies abdominal pain, Denies melena, Denies constipation, Denies diarrhea and Denies vomiting Denies dysuria, Denies urinary frequency and Denies urinary urgency Musc Reports arthralgias (Left knee), Denies joint swelling, Denies numbness and Denies tingling Neuro Denies Abnormal speech present, Denies behavioral changes, Denies vertigo, Denies dizziness, Denies headache(s), Denies loss of vision, Denies numbness and Denies tingling Psych Denies anxiety, Denies behavioral changes and Denies depression Gui/Lymph Denies easy bleeding and Denies easy bruising Aller/Immun Denies wheezing Physical exam (Primary Care) Vital Signs: Last Vital Signs Temp 98.6 F 11/08/24 15:53 Pulse 69 11/08/24 15:53 Resp 18 11/08/24 15:53 BP 134/74 11/08/24 15:53 Pulse Ox 96 11/08/24 15:53 Oxygen Delivery Method Room Air 11/08/24 15:53 BMI result Body Mass Index 38.4 Tobacco/Smoking Status: Tobacco use Status Tobacco use date assessed 11/08/24 11/08/24 16:10 Patient Tobacco Use Status Never used Tobacco 11/08/24 15:54 Tobacco use type Cigarette 11/08/24 15:54 e-Cigarette/Vaping Use Never Used 11/08/24 15:54 Thrive Assessment: Date of Thrive Assessment Date Thrive assessed 11/08/24 11/08/24 16:10 Currently or been in a relationship where the following occur: No concerns reported Const General: healthy appearing, no acute distress, alert and awake Nutritional Appearance: well nourished Orientation/consciousness: oriented to person, oriented to place and oriented to time HENMT Ears: external ears normal General nose exam: Normal external nose present Eyes Conjunctivae: conjunctivae normal Sclerae: sclerae normal Pupils: Equal, round and reactive pupils present Neck Neck: Yes no lymphadenopathy and Yes no JVD Thyroid: Thyroid normal Carotids: no bruits Resp Effort & Inspection: normal respiratory effort and not tachypneic Auscultation: no crackles, no rales, no rhonchi and no wheezes Cardio Rate: regular rate Rhythm: regular rhythm Heart sounds: no murmurs and normal S1 and S2 GI Palpation (GI): Soft to palpation, nontender, no hepatomegaly and no splenomegaly Auscultation: normal bowel sounds Skin General skin exam: no rashes or lesions noted and dry skin Neuro General: oriented to person, oriented to place and oriented to time Cranial nerves: Yes Equal, round and reactive pupils present Speech: No Abnormal speech present Gait exam (Neuro): Normal gait present Motor exam (neuro): no tremor noted Extrem Right upper extremity: full ROM Left upper extremity: full ROM Right lower extremity: full ROM; no edema Left lower extremity: full ROM; no edema Psych Mental Status: mental status grossly normal Speech and movement: Normal speech and movement present Affect: normal affect Attitude: cooperative Thought process: Normal thought process present Results AMB Hemoglobin A1c AMB Hemoglobin A1c 7.2 % Last Edit by Aye Alvarado CMA on 11/08/24 16:11 Results Reviewed Results Reviewed: Laboratory Last Values Hgb A1c (Clinic) 7.2 % (4.0-6.0) H 11/08/24 16:11 Coding Level of Care Code Est Pt Level 4 (82059) Diagnoses Primary osteoarthritis of left knee M17.12 Osteoarthritis type: primary Allergic rhinitis due to pollen, unspecified seasonality J30.1 Allergic rhinitis trigger: pollen Allergic rhinitis seasonality: unspecified Diabetes mellitus with coincident hypertension E11.9; I10 FLORINDA on CPAP G47.33; Z99.89 Chronic GERD K21.9 Class 2 severe obesity with serious comorbidity and body mass index (BMI) of 38.0 to 38.9 in adult, unspecified obesity type E66.812; E66.01; Z68.38 Obesity type: unspecified obesity type Obesity classification: adult class 2 (BMI 35 - 39.9) Serious obesity comorbidity presence: with serious comorbidity Body mass index: BMI 38.0-38.9 Time Spent (min) 41 Assessment & Plan Assessment & Plan (1) Osteoarthritis of left knee: Code(s): M17.12 - Unilateral primary osteoarthritis, left knee Category: Medical Qualifiers: Osteoarthritis type: primary Qualified Code(s): M17.12 - Unilateral primary osteoarthritis, left knee (2) Allergic rhinitis: Code(s): J30.9 - Allergic rhinitis, unspecified Category: Medical Qualifiers: Allergic rhinitis trigger: pollen Allergic rhinitis seasonality: unspecified Qualified Code(s): J30.1 - Allergic rhinitis due to pollen (3) Diabetes mellitus with coincident hypertension: Code(s): E11.9 - Type 2 diabetes mellitus without complications; I10 - Essential (primary) hypertension Category: Medical (4) FLORINDA on CPAP: Code(s): G47.33 - Obstructive sleep apnea (adult) (pediatric); Z99.89 - Dependence on other enabling machines and devices Category: Medical (5) Chronic GERD: Code(s): K21.9 - Gastro-esophageal reflux disease without esophagitis Category: Medical (6) Obesity: Comment: as above Code(s): E66.9 - Obesity, unspecified Category: Medical Qualifiers: Obesity type: unspecified obesity type Obesity classification: adult class 2 (BMI 35 - 39.9) Serious obesity comorbidity presence: with serious comorbidity Body mass index: BMI 38.0-38.9 Qualified Code(s): E66.812 - Obesity, class 2; E66.01 - Morbid (severe) obesity due to excess calories; Z68.38 - Body mass index [BMI] 38.0-38.9, adult Plan The patient to continue is going treatments. Amlodipine 10 mg daily, atenolol 50 mg daily, hydrochlorothiazide 12.5 mg daily for blood pressure management. Reinforced low-sodium diet and activity as tolerated. Patient reports that he is urinary symptoms has improved since starting the alfuzsoin ER 10 mg daily. Patient reports that his heartburn is very minimal and infrequent. Continue Nexium 40 mg daily, reinforced dietary restrictions, refrain from eating close to bedtime. Patient diabetes has been controlled A1c 7.2% in office, slightly above his goal of less than 7%, continue metformin a 1000 mg b.i.d., Trulicity 0.75 mg subQ q.week, continue monitoring blood sugar frequently. Ongoing allergies, continue Zyrtec 10 mg, prn, fluticasone propionate 50 mcg/actuation. Follow up with Orthopedics for left knee pain status post steroid injection. Continue CPAP as ordered. Orders: Orders AMB Hemoglobin A1c 11/08/24 E11.9 - Type 2 diabetes mellitus without complications, I10 - Essential (primary) hypertension Complete Blood Count Auto Diff 11/08/24 E11.9 - Type 2 diabetes mellitus without complications, E66.9 - Obesity, unspecified, G47.33 - Obstructive sleep apnea (adult) (pediatric), I10 - Essential (primary) hypertension, J30.9 - Allergic rhinitis, unspecified, K21.9 - Gastro-esophageal reflux disease without esophagitis, M17.12 - Unilateral primary osteoarthritis, left knee, R51.9 - Headache, unspecified, Z99.89 - Dependence on other enabling machines and devices Comprehensive [place]. Panel Fast 11/08/24 E11.9 - Type 2 diabetes mellitus without complications, E66.9 - Obesity, unspecified, G47.33 - Obstructive sleep apnea (adult) (pediatric), I10 - Essential (primary) hypertension, J30.9 - Allergic rhinitis, unspecified, K21.9 - Gastro-esophageal reflux disease without esophagitis, M17.12 - Unilateral primary osteoarthritis, left knee, R51.9 - Headache, unspecified, Z99.89 - Dependence on other enabling machines and devices Vitamin B12 and Folate 11/08/24 E11.9 - Type 2 diabetes mellitus without complications, E66.9 - Obesity, unspecified, G47.33 - Obstructive sleep apnea (adult) (pediatric), I10 - Essential (primary) hypertension, J30.9 - Allergic rhinitis, unspecified, K21.9 - Gastro-esophageal reflux disease without esophagitis, M17.12 - Unilateral primary osteoarthritis, left knee, R51.9 - Headache, unspecified, Z99.89 - Dependence on other enabling machines and devices Microalbumin, Random (w Creat) 11/08/24 E11.9 - Type 2 diabetes mellitus without complications, E66.9 - Obesity, unspecified, G47.33 - Obstructive sleep apnea (adult) (pediatric), I10 - Essential (primary) hypertension, J30.9 - Allergic rhinitis, unspecified, K21.9 - Gastro-esophageal reflux disease without esophagitis, M17.12 - Unilateral primary osteoarthritis, left knee, R51.9 - Headache, unspecified, Z99.89 - Dependence on other enabling machines and devices Glucose Fasting 11/08/24 E11.9 - Type 2 diabetes mellitus without complications, E66.9 - Obesity, unspecified, G47.33 - Obstructive sleep apnea (adult) (pediatric), I10 - Essential (primary) hypertension, J30.9 - Allergic rhinitis, unspecified, K21.9 - Gastro-esophageal reflux disease without esophagitis, M17.12 - Unilateral primary osteoarthritis, left knee, R51.9 - Headache, unspecified, Z99.89 - Dependence on other enabling machines and devices Hemoglobin A1c 11/08/24 E11.9 - Type 2 diabetes mellitus without complications, E66.9 - Obesity, unspecified, G47.33 - Obstructive sleep apnea (adult) (pediatric), I10 - Essential (primary) hypertension, J30.9 - Allergic rhinitis, unspecified, K21.9 - Gastro-esophageal reflux disease without esophagitis, M17.12 - Unilateral primary osteoarthritis, left knee, R51.9 - Headache, unspecified, Z99.89 - Dependence on other enabling machines and devices Lipid Panel 11/08/24 E11.9 - Type 2 diabetes mellitus without complications, E66.9 - Obesity, unspecified, G47.33 - Obstructive sleep apnea (adult) (pediatric), I10 - Essential (primary) hypertension, J30.9 - Allergic rhinitis, unspecified, K21.9 - Gastro-esophageal reflux disease without esophagitis, M17.12 - Unilateral primary osteoarthritis, left knee, R51.9 - Headache, unspecified, Z99.89 - Dependence on other enabling machines and devices IRON PROFILE 11/08/24 E11.9 - Type 2 diabetes mellitus without complications, E66.9 - Obesity, unspecified, G47.33 - Obstructive sleep apnea (adult) (pediatric), I10 - Essential (primary) hypertension, J30.9 - Allergic rhinitis, unspecified, K21.9 - Gastro-esophageal reflux disease without esophagitis, M17.12 - Unilateral primary osteoarthritis, left knee, R51.9 - Headache, unspecified, Z99.89 - Dependence on other enabling machines and devices UA CC w/rflx Micro + Cult 11/08/24 E11.9 - Type 2 diabetes mellitus without complications, E66.9 - Obesity, unspecified, G47.33 - Obstructive sleep apnea (adult) (pediatric), I10 - Essential (primary) hypertension, J30.9 - Allergic rhinitis, unspecified, K21.9 - Gastro-esophageal reflux disease without esophagitis, M17.12 - Unilateral primary osteoarthritis, left knee, R51.9 - Headache, unspecified, Z99.89 - Dependence on other enabling machines and devices TSH reflex Free T4 04/22/25 E11.9 - Type 2 diabetes mellitus without complications, E66.9 - Obesity, unspecified, G47.33 - Obstructive sleep apnea (adult) (pediatric), I10 - Essential (primary) hypertension, J30.9 - Allergic rhinitis, unspecified, K21.9 - Gastro-esophageal reflux disease without esophagitis, M17.12 - Unilateral primary osteoarthritis, left knee, R51.9 - Headache, unspecified, Z99.89 - Dependence on other enabling machines and devices Vitamin D 25-OH Total 11/08/24 E11.9 - Type 2 diabetes mellitus without complications, E66.9 - Obesity, unspecified, G47.33 - Obstructive sleep apnea (adult) (pediatric), I10 - Essential (primary) hypertension, J30.9 - Allergic rhinitis, unspecified, K21.9 - Gastro-esophageal reflux disease without esophagitis, M17.12 - Unilateral primary osteoarthritis, left knee, R51.9 - Headache, unspecified, Z99.89 - Dependence on other enabling machines and devices
--- OUTSIDE RECORDS SUMMARY | 2024-11-08 18:30 | XMS_ITS | Patient Health Record ---
Author Organization [facility] Address [address] [place] [id number] Care Team Providers Care Qa Engineer Name Role Phone Arsalan Espinoza MD Primary Care Provider Benja Slaughter Jr Unavailable Allergies No Known Allergies Reason For Referral No Information Medications Medication SIG (Take, Route, Frequency, Duration) Notes [...] BY MOUTH EVERY DAY for 90 Active Immunizations Vaccine Route Administration Date Status Comme nts Influenza Unknown 04/19/2020 Administered Influenza Unknown 03/20/2022 Administered Problems Problem Type SNOMED Code ICD Code Onset Dates Problem Status W/U Status Risk Notes Problem 281329038 Colon cancer screening (Z12.11) Active confirmed Problem 945725921 Nausea (R11.0) Active confirmed Problem 229465839 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) use of aspirin (Z79.82) Active confirmed Problem 617161842 Gastroesophageal reflux disease without esophagitis (K21.9) Active confirmed Problem 604993562 Gallbladder poly p (K82.4) Active confirmed Plan Of Treatment Pending Test Test Name Order Date US ABD 08/21/2022 Future Test Test Name Order Date UPPER GI ENDOSCOPY 03/18/2017 COLONOSCOPY 03/18/2017 UPPER GI ENDOSCOPY 08/09/2020 COLONOSCOPY 08/21/2022 Insurance Providers Payer Name Payer Address Payer Phone Subscriber Number Group Number Insured Name Patient Relationship to Insured Coverage Start Date Coverage End Date [facility] [address] [place] [phone] [id number] TONA SINGH Self - patient is the insured Medical (General) History Medical History History ICD Code gastroesophageal reflux dise ase, upper endoscopy 09/09, fundic gland polyps, no H. pylori or Huggins's. colonoscopy 06/05, small tubular adenoma , five-year followup diabetes mellitus hypertension mild stroke 06/2016 sleep apnea Surgical History Surgery Date(Month/Year) skin tag removed cyst removal
== END 2024-11-08 16:39 | disposition home or self-care (01) ==
LOC: HO.HMCH 15:41
DX: E11.9 Type 2 diabetes mellitus without complications (principal); I10 Essential (primary) hypertension

== ENCOUNTER → 2024-11-08 15:41 | Outpatient (BNVA) | payer OTHER, SELFPAY | DX: E11.9 Type 2 diabetes mellitus without complications (principal); M17.12 Unilateral primary osteoarthritis, left knee; J30.1 Allergic rhinitis due to pollen; I10 Essential (primary) hypertension; G47.33 Obstructive sleep apnea (adult) (pediatric); K21.9 Gastro-esophageal reflux disease without esophagitis; E66.812 Obesity, class 2; E66.01 Morbid (severe) obesity due to excess calories; Z68.38 Body mass index [BMI] 38.0-38.9, adult; Z79.84 Long term (current) use of oral hypoglycemic drugs; Z79.899 Other long term (current) drug therapy; Z99.89 Dependence on other enabling machines and devices | CPT/HCPCS: 83036 ==

== ENCOUNTER 2025-01-05 08:00 | Outpatient (RCR) | payer OTHER, SELFPAY ==
--- NOTE | 2024-10-26 10:00 | MHC.PT.EP ---
[facility] [place] Office [place] Office [place] Office [address] Marsha Florez [address] [phone] F: [phone] F: [phone] F: [phone] F: [phone] Physical Therapy Plan of Care Date of Evaluation: 10/26/24 Date of Surgery: Diagnosis: This is a 58 yo male presenting to skilled PT with a script for OA of R knee. Assessment: This is a 58 yo male presenting to skilled PT with a script for OA of R knee. Patient reporting ongoing knee pain for about a year now, insidious onset. He is being followed by [facility] who did an x-ray and cortisone injection which did not help with pain. Pain is located B joint line of the R knee. Pain increases with walking, driving, standing and ascending stairs. Pain improves with sitting. Of note, he has now developed R lateral hip joint pain as well. He was given celebrex for pain. Does not use ice, bracing or additional pain management. Assessment reveals pain that ranges from up to a 8/10 at the worst. Patient demos decreased knee ROM, strength of hip and knee, TTP at medial and lateral joint line, patella (hypo), impaired posture with bent knee positioning, forward head and rounded shoulders and decreased gait/balance. Based on functional limitations, impaired QOL and pain tolerance patient is a good candidate for skilled PT 2x/wk for 4wks. 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 Manual therapy to restore motion and function. Therapeutic exercise to improve strength and flexibility. Neuromuscular re-education for posture and balance. Therapeutic activities to return to functional activities of daily living. Electronically signed by: Rebekah Martin PT Please sign and return to therapist. Thank you for your referral.
--- NOTE | 2025-02-03 09:44 | MHC.PT.DC ---
[facility] [place] Office [place] Office [place] Office [address] Marsha Florez 140 [facility] [phone] F: [phone] F: [phone] F: [phone] F: [phone] Physical Therapy Discharge Report Diagnosis: This is a 58 yo male presenting to skilled PT with a script for OA of R knee. Date of Surgery: Date of Evaluation: 10/26/24 Date of Discharge: 02/03/25 Treatments to Date: 10 Cancellations to Date: 0 No Shows to Date: 0 Discharge Status: Achieved Goals Improved Function Independent with HEP Discharge Summary: 01/05: Patient has come to 10 sessions of PT, he demos WFL ROM and strength and gets occasional soreness. He has seen an orthopedic in the past, I educated him to continue his HEP and if needed return to ortho for further management. At this time he has improved his function on the stairs, with walking and standing. He has met his PT goals and is appropriate for DC to HEP. Electronically signed by: Rebekah Martin PT Please sign and return to therapist. Thank you for your referral.
== END 2025-02-03 09:45 | disposition home or self-care (01) ==
LOC: HO.PTCHIC 08:00
PROVIDERS: PCP Internal Medicine; Visit Provider Physician Assistant
DX: M17.11 Unilateral primary osteoarthritis, right knee (principal)
CPT/HCPCS: 97110; 97162

== ENCOUNTER 2025-02-02 06:21 | Outpatient (REF) | payer OTHER, SELFPAY ==
--- OUTSIDE RECORDS SUMMARY | 2025-02-02 06:23 | XMS_ITS | Patient Health Record ---
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 nt) use of aspirin (Z79.82) Active confirmed Problem 459942768 Gastroesophageal reflux disease without esophagitis (K21.9) Active confirmed Problem 860287041 Gallbladder poly p (K82.4) Active confirmed Plan Of Treatment Pending Test Test Name Order Date US ABD 08/21/2022 Future Test Test Name Order Date UPPER GI ENDOSCOPY 03/18/2017 COLONOSCOPY 03/18/2017 UPPER GI ENDOSCOPY 08/09/2020 COLONOSCOPY 08/21/2022 Insurance Providers Payer Name Payer Address Payer Phone Subscriber Number Group Number Insured Name Patient Relationship to Insured Coverage Start Date Coverage End Date [facility] [address] [place] [phone] [id number] TONA SINGH Self - patient is the insured Medical (General) History Medical History History ICD Code gastroesophageal reflux dise ase, upper endoscopy 09/09, fundic gland polyps, no H. pylori or Huggins's. colonoscopy 06/05, small tubular adenoma , five-year followup diabetes mellitus hypertension mild stroke 06/2016 sleep apnea Surgical History Surgery Date(Month/Year) skin tag removed cyst removal
[2025-02-02 10:07] LABS: MANUAL DIFF FLAG NO
[2025-02-02 10:12] LABS: Hematocrit 39.5 % (42.0-52.0); Hemoglobin 12.9 g/dl (14.0-18.0); Imm Gran Abs Auto 0.03 X10*3/uL (0.00-0.03); Imm Gran Pct Auto 0.4 % (0.0-0.4); Lymphocytes Absolute Auto 2.4 X10*3/uL (1.2-4.9); Mean Corpuscular HGB Conc 32.7 g/dl (31.0-36.0); Mean Corpuscular Hemoglobin 28.1 pg (27.0-33.0); Mean Corpuscular Volume 86.1 fL (80.0-98.0); NRBC Abs Auto 0.000 X10*3/uL (0.0-0.012); NRBC Pct Auto 0.0 /100WBC (0.0-0.2); Platelet Count 238 X10*3/uL (160-400); Red Blood Count 4.59 X10*6/uL (4.60-5.80); White Blood Count 8.4 X10*3/uL (4.8-10.8)
[2025-02-02 10:43] LABS: Alanine Aminotransferase 30 U/L (0-40); Albumin Level 4.4 g/dL (3.5-5.0); Alkaline Phosphatase 50 U/L (39-117); Anion Gap 13 (12-20); Aspartate Amino Transferase 26 U/L (5-37); Blood Urea Nitrogen 18 mg/dL (9-16); Calcium 8.8 mg/dL (8.4-10.2); Carbon Dioxide 25 mmol/L (22-29); Chloride 105 mmol/L (96-108); Cholesterol 191 mg/dL (<200); Estimated Glomerular Filt Rate > 60; HDL Cholesterol 30 mg/dL (>40); Iron 83 mcg/dL (45-160); Percent Iron Saturation 32 % (15-50); Potassium 3.9 mmol/L (3.3-5.1); Sodium 139 mmol/L (135-145); Total Iron Binding Capacity 257 mcg/dL (228-428); Total Protein 6.8 g/dL (6.5-8.0); Triglycerides 254 mg/dL (<150); Unsaturated Iron Binding 174 ug/dL
[2025-02-02 10:52] LABS: Hemoglobin A1C 202.2529 umol/L; Total Hemoglobin (HGBA1C) 3373.5194 umol/L
[2025-02-02 10:55] LABS: Appearance Urine Clear; Glucose Urine UA Negative (Negative); PH 6.0 (5.0-9.0); Specific Gravity - Urine 1.020 (1.005-1.025)
[2025-02-02 11:13] LABS: Folate 10.9 ng/mL (> or = 4.0); Vitamin B12 636 pg/mL (200-900)
== END 2025-02-02 06:22 | disposition home or self-care (01) ==
LOC: HO.HMGCLDS 06:21
DX: E11.9 Type 2 diabetes mellitus without complications (principal); M17.12 Unilateral primary osteoarthritis, left knee; J30.9 Allergic rhinitis, unspecified; I10 Essential (primary) hypertension; R51.9 Headache, unspecified; G47.33 Obstructive sleep apnea (adult) (pediatric); K21.9 Gastro-esophageal reflux disease without esophagitis; E66.9 Obesity, unspecified; Z99.89 Dependence on other enabling machines and devices
CPT/HCPCS: 36415; 80053; 80061; 81003; 82043; 82306; 82570; 82607; 82746; 83036; 83540; 84443; 85025

== ENCOUNTER 2025-02-08 15:28 | Outpatient (AMB) | payer OTHER, SELFPAY ==
--- NOTE | 2025-02-08 15:32 | A.OFFPC_ITS ---
Vital Signs 02/08/25 15:33 02/08/25 16:23 Height 5 ft 11 in Weight 282 lb BMI 39.3 BP 162/80 H 132/64 Blood Pressure Location Lt brachial Lt brachial Position Sitting Sitting Pulse 67 Pulse Source Pulse Oximeter Temp Source Temporal Artery Scan Pulse Oximetry (%) 97 Oxygen Delivery Method Room Air Intake Visit Reasons: dm/htn/gerd/hastings Pillow Agent Required: No Accompanied by: Self / Same As Patient Allergies cat dander Allergy (Severe, Verified 02/08/25 16:17) Nasal congestion bee pollen (BEE STINGS) Allergy (Intermediate, Verified 02/08/25 16:17) SWELLING Medication List - Last Reconciled 02/08/25 by ROSANNE Castillo alfuzosin ER 10 mg PO DAILY amlodipine 10 mg PO DAILY aspirin (Adult Low Dose Aspirin) 81 mg PO DAILY atenolol 50 mg PO DAILY blood-glucose sensor (Velo LabsStyle Edilson 3 Sensor device) As directed blood-glucose sensor (Dexcom G7 Sensor device) As directed cetirizine (Zyrtec) 10 mg PO DAILY PRN clobetasol 0.025% 1 appl topical BID PRN CPAP (CPAP Machine/Device) As directed dulaglutide (Trulicity) 0.75 mg (0.5 mL) subcut QWEEK esomeprazole magnesium 40 mg PO DAILY fluocinonide 0.05% 1 appl topical BID PRN fluticasone propionate 50 mcg/actuation 1 spray intranasal DAILY hydrochlorothiazide 12.5 mg PO DAILY ketoconazole 2% 1 appl topical 2XW metformin 1,000 mg PO BID Tobacco use date assessed: 02/08/25 Dental Screening Dental Screen Date: 02/08/25 Did you have a dental visit in the last 12 months?: Yes Did you have a dental problem in the last 6 months where you did not have access to dental care?: No Was dental information given to patient?: Patient has dentist HPI dm/htn/gerd/hastings HPI Details The patient is a 59-year-old male presenting for a routine follow-up visit to manage chronic conditions including hypertension, diabetes mellitus, and hyperlipidemia. Hypertension has been noted with an initial blood pressure reading of 162/80 mmHg, which decreased to 130/64 mmHg after using an appropriately sized cuff. The patient reported consuming coffee and diet coke earlier in the day, which may have influenced the initial reading. The patient has a history of anemia, which remains slightly present as per recent lab results. He is advised to increase water intake to address elevated BUN levels. Diabetes mellitus management is ongoing, with recent lab results indicating an increase in HbA1c from 7.1% to 7.6%. The patient is on Trulicity for diabetes management and reports occasional gastrointestinal side effects, likely exacerbated by a history of gallbladder removal. Hyperlipidemia is noted with triglycerides at 254 mg/dL, which is higher than desired. The patient is advised to reduce intake of saturated fats and processed foods to manage lipid levels. Vitamin D deficiency is present, with levels at 19.8 ng/mL, and supplementation is recommended. The patient reports knee osteoarthritis with cartilage degeneration and patellar misalignment, managed with physical therapy. He completed nine weeks of therapy, which provided some improvement. Allergic rhinitis is managed with Flonase due to sinus polyps, and surgical intervention is not recommended. Sleep apnea is managed with CPAP therapy, which the patient reports using regularly with occasional issues with mask fit. [facility] Medical History Splenomegaly Polyp of gallbladder Stroke Obesity Obesity, diabetes, and hypertension syndrome Diabetes mellitus with coincident hypertension Sleep apnea GERD (gastroesophageal reflux disease) BPH (benign prostatic hyperplasia) Hypertension Diabetes mellitus Surgical History History of laparoscopic cholecystectomy History of esophagogastroduodenoscopy (EGD) Hx of colonoscopy History of removal of cyst History of dental surgery Family History Father CAD (coronary artery disease) CVD (cardiovascular disease) Mother Breast cancer Sister Colon cancer Social History Housing: House Are you a primary aged or disabled carer to a significant other at home: No Do you presently have visiting nurse or other home services: No Alcohol intake: never Patient Tobacco Use Status: Never used Tobacco Tobacco use type: Cigarette e-Cigarette/Vaping Use: Never Used Second Hand Smoke Exposure: No service: No Current occupational status: employed Current occupation: [employer] Cognitive needs: No Hearing needs: No Vision needs: Yes (Glasses) Questionnaire PHQ-9 Over the last 2 weeks, how often have you been bothered by any of the following problems? 1. Little interest or pleasure in doing things: not at all 2. Feeling down, depressed, or hopeless: not at all 3. Trouble falling or staying asleep, or sleeping too much: not at all 4. Feeling tired or having little energy: not at all 5. Poor appetite or overeating: not at all 6. Feeling bad about yourself - or that you are a failure or have let yourself or your family down: not at all 7. Trouble concentrating on things, such as reading the newspaper or watching television: not at all 8. Moving or speaking so slowly that other people could have noticed. Or the opposite - being so fidgety or restless that you have been moving around a lot more than usual: not at all 9. Thoughts that you would be better off or of hurting yourself in some way: not at all Total score: 0 Depression Screening Interpretation: Negative Depression Screening Done: Yes Source: Developed by Drs. Grady Ireland, Bronwyn Perkins, Bob Galloway and colleagues, with an educational sarahy from [employer]. Thrive Questionnaire Date Thrive assessed: 02/08/25 I am a: Patient What is your living situation today?: I have a steady place to live Within the past 12 months, did the food you bought not last and you didn't have the money to get more?: Never true Within the past 12 months, did you worry whether your food would run out before you got money to buy more?: Never true Do you have trouble paying for medicines?: No Do you have trouble getting transportation to medical appointments?: No Do you have trouble paying your heating and electricity bill?: No Do you have trouble taking care of your child, family member or friend?: No Do you have trouble with day-to-day activities such as bathing, preparing meals, shopping, managing finances, etc.?: No Are you currently unemployed and looking for a job?: No Are you interested in more education?: I choose not to answer this question Please select the resources that you would like help with: None Currently or been in a relationship where the following occur: No concerns reported THRIVE Score: 0 AUDIT C Alcohol Use Questionnaire (AUDIT-C) 1. How often do you have a drink containing alcohol?: 2-4 times a month Total Score: 2 OLY-7 AMB Questionnaire OLY-7 Date OLY - 7 assessed: 02/08/25 Feeling nervous, anxious, or on edge: 0 = Not at all Not being able to stop or control worryin = Not at all Worrying too much about different things: 0 = Not at all Trouble relaxin = Not at all Being so restless that it is hard to sit still: 0 = Not at all Becoming easily annoyed or irritable: 0 = Not at all Feeling afraid as if something awful might happen: 0 = Not at all Total OLY-7 score (0-4 normal; 5-9 mild; 10-14 moderate; 15-21 severe): 0 Source: Developed by Drs. Grady Ireland, Bronwyn Perkins, Bob Galloway and colleagues, with an educational sarahy from [employer]. Review of Systems Const Details: - Cardiovascular: Denies chest pain or palpitations. - Respiratory: Denies shortness of breath. - Gastrointestinal: Reports occasional diarrhea, denies constipation. - Musculoskeletal: Reports knee pain and stiffness. - Neurological: Denies headaches or dizziness. - Endocrine: Reports management of diabetes with Trulicity. - Allergic/Immunologic: Reports use of Flonase for allergic rhinitis. Denies body aches, Denies chills, Denies fever(s), Denies headache(s) and Denies poor appetite Eyes Reports no additional complaints ENT Denies dysphagia, Denies dizziness, Denies headache(s), Reports nasal congestion and Denies odynophagia Card Denies chest pain, Denies syncope, Denies edema, Denies irregular heart rhythm, Denies lightheadedness and Denies dyspnea Resp Denies cough, Denies dyspnea and Denies wheezing GI Denies abdominal pain, Denies constipation, Denies dysphagia, Reports diarrhea (Occasional status post cholecystectomy), Denies nausea, Denies odynophagia and Denies vomiting Reports no additional complaints Musc Reports arthralgias (Right knee pain) Skin/Breast Reports system reviewed and no additional complaints, except as documented Neuro Denies dizziness, Denies syncope and Denies headache(s) Psych Reports no additional complaints Endo Denies cold intolerance and Denies heat intolerance Gui/Lymph Denies easy bleeding and Denies easy bruising Aller/Immun Denies wheezing Physical exam (Primary Care) Vital Signs: Last Vital Signs Pulse 67 02/08/25 15:33 BP 162/80 H 02/08/25 15:33 Pulse Ox 97 02/08/25 15:33 Oxygen Delivery Method Room Air 02/08/25 15:33 BMI result Body Mass Index 39.3 Tobacco/Smoking Status: Tobacco use Status Tobacco use date assessed 02/08/25 02/08/25 15:40 Patient Tobacco Use Status Never used Tobacco 02/08/25 15:40 Tobacco use type Cigarette 02/08/25 15:40 e-Cigarette/Vaping Use Never Used 02/08/25 15:40 PHQ-9: PHQ-9 Score PHQ-9: Total score 0 02/08/25 15:40 Depression Screening Interpretation: Negative Thrive Assessment: Date of Thrive Assessment Date Thrive assessed 02/08/25 02/08/25 15:40 Currently or been in a relationship where the following occur: No concerns reported Const General: cooperative, healthy appearing, comfortable and no acute distress Orientation/consciousness: patient oriented x3 HENMT Head: Yes normocephalic Ears: hearing grossly normal bilaterally General nose exam: Nasal polyp present Face and sinus: Yes sinuses nontender Eyes General: appearance normal, both eyes and all related structures Conjunctivae: conjunctivae normal Neck Neck: Yes full ROM and Yes no lymphadenopathy Resp Effort & Inspection: normal respiratory effort Auscultation: clear to auscultation bilaterally, no crackles, no rales, no rhonchi and no wheezes Cardio Rate: regular rate Rhythm: regular rhythm Heart sounds: S1 normal heart sound present, S2 normal heart sound present and no murmurs GI Inspection: Yes obesity Palpation (GI): Soft to palpation and nontender Auscultation: normal bowel sounds General: Yes no CVA tenderness Back/Spine/Pelvis Back: no CVA tenderness Skin General skin exam: no rashes or lesions noted Neuro General: patient oriented x3 Gait exam (Neuro): Normal gait present Extrem General: Yes normal to inspection, Yes full ROM and No edema Right lower extremity: knee Details: no tenderness and no swelling Psych Affect: normal affect Attitude: cooperative Insight: Good insight present (Psych) Judgement: Good judgement present (Psych) Results Reviewed Results Reviewed: Laboratory Tests 02/02/25 06:43 WBC 8.4 RBC 4.59 L Hgb 12.9 L Hct 39.5 L MCV 86.1 MCH 28.1 MCHC 32.7 RDW 13.6 Plt Count 238 MPV 10.5 Sodium 139 Potassium 3.9 Chloride 105 Carbon Dioxide 25 Anion Gap 13 BUN 18 H Creatinine 1.04 Estimated GFR > 60 Fasting Glucose 168 H Estimat Average Glucose 171 Hemoglobin A1c % 7.6 H Calcium 8.8 Iron 83 TIBC 257 % Saturation 32 Unsat Iron Binding 174 Total Bilirubin 0.5 AST 26 ALT 30 Alkaline Phosphatase 50 Total Protein 6.8 Albumin 4.4 Triglycerides 254 H Cholesterol 191 LDL Cholesterol, Calc 111 H HDL Cholesterol 30 L Vitamin B12 636 25-OH Vitamin D Total 19.8 L Folate 10.9 TSH 1.91 Urine Color Yellow Urine Appearance Clear Urine pH 6.0 Ur Specific Harper 1.020 Urine Protein Negative Urine Glucose (UA) Negative Urine Ketones Trace Urine Blood Negative Urine Nitrite Negative Ur Leukocyte Esterase Negative Urine Creatinine 211.72 Urine Microalbumin < 5.0 Microalb/Creat Ratio TNP Coding Level of Care Code Est Pt Level 4 (95821) Diagnoses Hypertension, unspecified type I10 Hypertension type: unspecified Type 2 diabetes mellitus with hyperglycemia, without long-term current use of insulin E11.65 Diabetes mellitus type: type 2 Diabetes mellitus terminal operator insulin use: without skilled nursing use Diabetes mellitus complication status: with hyperglycemia Class 2 severe obesity with serious comorbidity and body mass index (BMI) of 38.0 to 38.9 in adult, unspecified obesity type E66.812; E66.01; Z68.38 Obesity type: unspecified obesity type Obesity classification: adult class 2 (BMI 35 - 39.9) Serious obesity comorbidity presence: with serious comorbidity Body mass index: BMI 38.0-38.9 Allergic rhinitis due to pollen, unspecified seasonality J30.1 Allergic rhinitis trigger: pollen Allergic rhinitis seasonality: unspecified Chronic GERD K21.9 FLORINDA on CPAP G47.33; Z99.89 Primary osteoarthritis of right knee M17.11 Osteoarthritis type: primary Time Spent (min) 39 Assessment & Plan Assessment & Plan (1) Hypertension: Code(s): I10 - Essential (primary) hypertension Category: Medical Qualifiers: Hypertension type: unspecified Qualified Code(s): I10 - Essential (primary) hypertension (2) Diabetes mellitus: Code(s): E11.9 - Type 2 diabetes mellitus without complications Category: Medical Qualifiers: Diabetes mellitus type: type 2 Diabetes mellitus skilled nursing insulin use: without skilled nursing use Diabetes mellitus complication status: with hyperglycemia Qualified Code(s): E11.65 - Type 2 diabetes mellitus with hyperglycemia (3) Obesity: Comment: as above Code(s): E66.9 - Obesity, unspecified Category: Medical Qualifiers: Obesity type: unspecified obesity type Obesity classification: adult class 2 (BMI 35 - 39.9) Serious obesity comorbidity presence: with serious comorbidity Body mass index: BMI 38.0-38.9 Qualified Code(s): E66.812 - Obesity, class 2; E66.01 - Morbid (severe) obesity due to excess calories; Z68.38 - Body mass index [BMI] 38.0-38.9, adult (4) Allergic rhinitis: Code(s): J30.9 - Allergic rhinitis, unspecified Category: Medical Qualifiers: Allergic rhinitis trigger: pollen Allergic rhinitis seasonality: unspecified Qualified Code(s): J30.1 - Allergic rhinitis due to pollen (5) Chronic GERD: Code(s): K21.9 - Gastro-esophageal reflux disease without esophagitis Category: Medical (6) FLORINDA on CPAP: Code(s): G47.33 - Obstructive sleep apnea (adult) (pediatric); Z99.89 - Dependence on other enabling machines and devices Category: Medical (7) Osteoarthritis of right knee: Code(s): M17.11 - Unilateral primary osteoarthritis, right knee Category: Medical Qualifiers: Osteoarthritis type: primary Qualified Code(s): M17.11 - Unilateral primary osteoarthritis, right knee Plan The patient's hypertension will be monitored, with a focus on ensuring accurate blood pressure readings using the correct cuff size. Lifestyle modifications, including reducing caffeine intake, may be beneficial. For diabetes management, the patient's Trulicity dosage will be increased to 1.5 mg after completing the current supply. Regular monitoring of HbA1c levels is planned to assess the effectiveness of this adjustment. Hyperlipidemia management includes dietary changes to reduce triglyceride levels, focusing on decreasing saturated fat and processed food consumption. Vitamin D supplementation is recommended to address the deficiency, with consideration for soif-jol-hzsubla options if insurance does not cover the prescription. The patient will continue using CPAP therapy for sleep apnea and Flonase for allergic rhinitis management. Follow-up in three months is advised to reassess all conditions and adjust treatment plans as necessary. Patient was informed and verbally consented to the use of an ambient scribe for clinic note documentation during this visit. Medications: New dulaglutide (Trulicity) 1.5 mg (0.5 mL) subcut QWEEK 2 mL 0RF cholecalciferol (vitamin D3) (Sjq-I-Lqcfjui Forte) 50 mcg PO DAILY 4.5 mL 3RF 90 days Discontinued dulaglutide (Trulicity) Discontinued Reason: Duplicate 0.75 mg (0.5 mL) subcut QWEEK 2 mL 4RF Patient Instructions: - Monitor blood pressure regularly . - Reduce caffeine intake to help manage blood pressure. - Continue current Trulicity dosage and increase to 1.5 mg after finishing the current supply. - Follow dietary recommendations to lower triglyceride levels, focusing on reducing saturated fats and processed foods. - Consider ftxs-sco-pjytfwc vitamin D supplements if insurance does not cover the prescription. - Continue using CPAP for sleep apnea and Flonase for allergic rhinitis. - Schedule a follow-up appointment in three months to reassess conditions and treatment plans.
[2025-02-08 15:33] VITALS: BP 162/80; PULSE 67; O2SAT 97; BMI 39.3
--- OUTSIDE RECORDS SUMMARY | 2025-02-08 15:45 | XMS_ITS | Patient Health Record ---
Author Organization [facility] Address [address] [place] [id number] Care Team Providers Care Child Study Team Director Name Role Phone Arsalan Espinoza MD Primary [...] Problem Status W/U Status Risk Notes Problem [id number] Colon cancer screening (Z12.11) Active confirmed Problem [id number] Nausea (R11.0) Active confirmed Problem 713776391 quality intern (curre nt) use of aspirin (Z79.82) Active confirmed Problem [id number] Gastroesophageal reflux disease without esophagitis (K21.9) Active confirmed Problem [id number] Gallbladder poly p (K82.4) Active confirmed Plan Of Treatment Pending Test Test Name Order Date US ABD 08/21/2022 Future Test Test Name Order Date UPPER GI ENDOSCOPY 03/18/2017 COLONOSCOPY 03/18/2017 UPPER GI ENDOSCOPY 08/09/2020 COLONOSCOPY 08/21/2022 Insurance Providers Payer Name Payer Address Payer Phone Subscriber Number Group Number Insured Name Patient Relationship to Insured Coverage Start Date Coverage End Date [facility] [address] [place] [phone] [id number] TONA SINGH Self - patient is the insured Medical (General) History Medical History History ICD Code gastroesophageal reflux dise ase, upper endoscopy 09/09, fundic gland polyps, no H. pylori or Huggins's. colonoscopy 06/05, small tubular adenoma , five-year followup diabetes mellitus hypertension mild stroke 06/2016 sleep apnea Surgical History Surgery Date(Month/Year) skin tag removed cyst removal
[2025-02-08 16:23] VITALS: BP 132/64
== END 2025-02-08 16:41 | disposition home or self-care (01) ==
LOC: HO.HMCH 15:29
DX: I10 Essential (primary) hypertension (principal); E11.65 Type 2 diabetes mellitus with hyperglycemia; E66.812 Obesity, class 2; E66.01 Morbid (severe) obesity due to excess calories; Z68.38 Body mass index [BMI] 38.0-38.9, adult; J30.1 Allergic rhinitis due to pollen; K21.9 Gastro-esophageal reflux disease without esophagitis; G47.33 Obstructive sleep apnea (adult) (pediatric); Z99.89 Dependence on other enabling machines and devices; M17.11 Unilateral primary osteoarthritis, right knee

== ENCOUNTER 2025-03-15 15:31 | Outpatient (AMB) | payer OTHER, SELFPAY ==
--- NOTE | 2025-03-15 16:12 | MHC.OFFVIS ---
Intake Visit Reasons: 6 month PN stroke Allergies cat dander Allergy (Severe, Verified 03/15/25 16:24) Nasal congestion bee pollen (BEE STINGS) Allergy (Intermediate, Verified 03/15/25 16:24) SWELLING Medication List - Last Reconciled 03/15/25 by Radha Call CNP alfuzosin ER 10 mg PO DAILY amlodipine 10 mg PO DAILY aspirin (Adult Low Dose Aspirin) 81 mg PO DAILY atenolol 50 mg PO DAILY blood-glucose sensor (GridApp SystemsStyle Edilson 3 Sensor device) As directed blood-glucose sensor (ZeePearl G7 Sensor device) As directed cetirizine (Zyrtec) 10 mg PO DAILY PRN cholecalciferol (vitamin D3) (Knd-X-Kkojslt Forte) 50 mcg PO DAILY 90 days clobetasol 0.025% 1 appl topical BID PRN CPAP (CPAP Machine/Device) As directed dulaglutide (Trulicity) 1.5 mg (0.5 mL) subcut QWEEK esomeprazole magnesium 40 mg PO DAILY fluocinonide 0.05% 1 appl topical BID PRN fluticasone propionate 50 mcg/actuation 1 spray intranasal DAILY hydrochlorothiazide 12.5 mg PO DAILY ketoconazole 2% 1 appl topical 2XW metformin 1,000 mg PO BID HPI Comments Details: More neck pain over the last 4 months that comes and goes with pain occasionally going into either shoulder. More noticeable in the morning and feels better after shower, uses Tylenol as needed which helps some. Hands have been fine except for chronic numbness from 20s, especially index finger, symptoms have not changed or worsened. Does not notice any numbness to feet. No significant pain to feet. No falls. Knee pain from OA, saw orthopedics, and completed PT. No new stroke-like symptoms. Sleep was okay with CPAP. 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 Previously, intermittent numbness to feet, L > R. No significant pain in feet, occasional cramps. No weakness or falls. Pains in knees and hips, ongoing neck and back pain. Recovered from minor stroke in deep white matter right hemisphere on 06/23/16 and felt like his left leg had no power and he slipped to the floor. He also felt some weakness in his left arm with some prickly paresthesia like it had fallen asleep. There was no slurred speech or facial droop, or difficulty swallowing. He came to the emergency room about 6 hours after the onset of symptoms. He had a negative CAT scan. TPA was not considered because these were minor symptoms only and being approximately 6 hours from onset of symptoms. [facility] Medical History Splenomegaly Polyp of gallbladder Stroke Obesity Obesity, diabetes, and hypertension syndrome Diabetes mellitus with coincident hypertension Sleep apnea GERD (gastroesophageal reflux disease) BPH (benign prostatic hyperplasia) Hypertension Diabetes mellitus Surgical History History of laparoscopic cholecystectomy History of esophagogastroduodenoscopy (EGD) Hx of colonoscopy History of removal of cyst History of dental surgery Family History Father CAD (coronary artery disease) CVD (cardiovascular disease) Mother Breast cancer Sister Colon cancer Social History Housing: House Are you a primary daycare manager to a significant other at home: No Do you presently have visiting nurse or other home services: No Alcohol intake: never Patient Tobacco Use Status: Never used Tobacco Tobacco use type: Cigarette e-Cigarette/Vaping Use: Never Used Second Hand Smoke Exposure: No service: No Current occupational status: employed Current occupation: [employer] Cognitive needs: No Hearing needs: No Vision needs: Yes (Glasses) Review of Systems Const Denies chills, Denies daytime sleepiness, Denies difficulty sleeping, Denies fatigue, Denies fever(s), Denies frequent falls, Denies headache(s), Denies increased appetite, Denies poor appetite, Denies snoring, Denies weakness, Denies weight gain and Denies weight loss Eyes Denies loss of vision ENT Denies vertigo, Denies dizziness, Denies headache(s) and Reports neck pain Card Denies chest pain at rest, Denies chest pain with activity, Denies syncope, Denies leg edema, Denies palpitations, Denies dyspnea and Denies dyspnea on exertion Resp Denies cough, Denies dyspnea, Denies dyspnea on exertion and Denies snoring GI Denies abdominal pain, Denies constipation, Denies heartburn, Denies diarrhea and Denies nausea Denies urinary frequency, Denies urinary incontinence and Denies urinary urgency Musc Denies abnormal gait, Reports back pain, Denies myalgias, Reports arthralgias, Reports neck pain, Reports numbness and Reports tingling Neuro Denies abnormal gait, Denies vertigo, Denies dizziness, Denies syncope, Denies frequent falls, Denies headache(s), Denies lack of coordination, Denies loss of vision, Denies memory loss, Reports numbness, Denies Other visual disturbances, Denies restless legs, Denies seizure-like activity, Reports tingling, Denies paresthesias, Denies tremor(s) and Denies weakness Psych Denies anxiety, Denies depression, Denies auditory hallucinations, Denies memory loss and Denies visual hallucinations Endo Denies fatigue and Denies palpitations Physical Exam Const Other: General Appearance:? normal, in no acute distress. Heart:? S1, S2 normal, no murmurs. Lungs:? clear anteriorly and posteriorly. Musculoskeletal:? normal. Extremities:? no edema. Psych:? alert, oriented, cognitive function intact, cooperative with exam. Neuro Other: Abnormal Neurological Findings:?none.? Mental Status: alert and oriented X 3. Normal attention, orientation, memory, and affect. Cranial Nerves: Pupils are equal, round, and reactive to light. External ocular muscles are intact. Visual cesar are full, no ptosis. Face is symmetrical, no facial weakness or droop. Facial sensations are normal. Tongue protrudes in midline. Palate elevates symmetrically. Shoulder shrugging is normal Motor Examination: Normal muscle tone, bulk and strength. No atrophy or fasciculations. No drift of the extended upper extremities. DTR 2+. Plantars are flexor. Sensory Exam: Normal light touch, temperature, pinprick, vibration, and joint-position sensations. Rhomberg sign is absent. Coordination: No ataxia. No titubation. Gait Exam: Within normal limits. Cerebellar Signs: [id number] and [id number]-[id number] is normal. Extrapyramidal System: No tremor, rigidity with normal facial expressions. No bradykinesia. No bradyphrenia. Normal arm swing and posture. No propulsion or retropulsion. Speech: Normal. Results Reviewed Results Reviewed: Laboratory Tests 08/04/24 02/02/25 06:23 06:43 Hemoglobin A1c % 7.1 H 7.6 H 12/03/21 NCV/EMG LE Axonal sensory and motor peripheral neuopathy in the lower extremities. EMG in the left L4-S1 innervated muscles shows neuropathic changes. Assessment & Plan Assessment & Plan (1) History of stroke: Code(s): Z86.73 - Personal history of transient ischemic attack (TIA), and cerebral infarction without residual deficits Category: Medical Plan: Lab results reviewed, A1c increased from 7.1 in 07/2024 to 7.6 in 01/2025. Control blood sugar and blood pressure. Continue low dose aspirin. (2) Peripheral neuropathy: Code(s): G62.9 - Polyneuropathy, unspecified Category: Medical Qualifiers: Peripheral neuropathy type: polyneuropathy, unspecified Qualified Code(s): G62.9 - Polyneuropathy, unspecified Plan: Control blood sugar. Stay physically active. (3) Cervical disc disease: Code(s): M50.90 - Cervical disc disorder, unspecified, unspecified cervical region Category: Medical Plan: Cervical spine XR ordered. (4) Cerebral microvascular disease: Code(s): I67.89 - Other cerebrovascular disease Category: Medical Plan . Orders: Orders XR cervical spine 3V Today M50.90 - Cervical disc disorder, unspecified, unspecified cervical region Coding Level of Care Code Est Pt Level 4 (69174) Diagnoses History of stroke Z86.73 Peripheral polyneuropathy G62.9 Peripheral neuropathy type: polyneuropathy, unspecified Cervical disc disease M50.90 Cerebral microvascular disease I67.89
--- OUTSIDE RECORDS SUMMARY | 2025-03-15 16:45 | XMS_ITS | Patient Health Record ---
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) use of aspirin (Z79.82) Active confirmed Problem 861656801 Gastroesophageal reflux disease without esophagitis (K21.9) Active confirmed Problem 299152646 Gallbladder poly p (K82.4) Active confirmed Plan Of Treatment Pending Test Test Name Order Date US ABD 08/21/2022 Future Test Test Name Order Date UPPER GI ENDOSCOPY 03/18/2017 COLONOSCOPY 03/18/2017 UPPER GI ENDOSCOPY 08/09/2020 COLONOSCOPY 08/21/2022 Insurance Providers Payer Name Payer Address Payer Phone Subscriber Number Group Number Insured Name Patient Relationship to Insured Coverage Start Date Coverage End Date [facility] [address] [place] [phone] [id number] TONA SINGH Self - patient is the insured Medical (General) History Medical History History ICD Code gastroesophageal reflux dise ase, upper endoscopy 09/09, fundic gland polyps, no H. pylori or Huggins's. colonoscopy 06/05, small tubular adenoma , five-year followup diabetes mellitus hypertension mild stroke 06/2016 sleep apnea Surgical History Surgery Date(Month/Year) skin tag removed cyst removal
== END 2025-03-15 16:39 | disposition home or self-care (01) ==
LOC: HO.HSM 15:32
PROVIDERS: PCP Internal Medicine; Referring Provider Internal Medicine; Visit Provider Registered Nurse
DX: Z86.73 Personal history of transient ischemic attack (TIA), and cerebral infarction without residual deficits (principal); G62.9 Polyneuropathy, unspecified; M50.90 Cervical disc disorder, unspecified, unspecified cervical region; I67.89 Other cerebrovascular disease
CPT/HCPCS: 99214

== ENCOUNTER 2025-04-17 07:02 | Outpatient (REF) | payer OTHER, SELFPAY ==
--- NOTE | ~2025-04-17 | XR_ITS ---
CLINICAL HISTORY: M50.90 - Cervical disc disorder, unspecified, unspecified cervical region 5 views cervical spine Comparison: None provided Findings: Normal vertebral body alignment. No acute fractures or dislocation. Moderate multilevel spondylosis. No prevertebral soft tissue swelling. IMPRESSION: No acute findings. Moderate multilevel spondylosis. This document has been electronically signed by: Arthur Richardson MD on 04/17/2025 23:13:25
--- OUTSIDE RECORDS SUMMARY | 2025-04-17 07:06 | XMS_ITS | Patient Health Record ---
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 (Z79.82) Active confirmed Problem 390062759 Gastroesophageal reflux disease without esophagitis (K21.9) Active confirmed Problem 510518724 Gallbladder poly p (K82.4) Active confirmed Plan Of Treatment Pending Test Test Name Order Date US ABD 08/21/2022 Future Test Test Name Order Date UPPER GI ENDOSCOPY 03/18/2017 COLONOSCOPY 03/18/2017 UPPER GI ENDOSCOPY 08/09/2020 COLONOSCOPY 08/21/2022 Insurance Providers Payer Name Payer Address Payer Phone Subscriber Number Group Number Insured Name Patient Relationship to Insured Coverage Start Date Coverage End Date [facility] [address] [place] [phone] [id number] TONA SINGH Self - patient is the insured Medical (General) History Medical History History ICD Code gastroesophageal reflux dise ase, upper endoscopy 09/09, fundic gland polyps, no H. pylori or Huggins's. colonoscopy 06/05, small tubular adenoma , five-year followup diabetes mellitus hypertension mild stroke 06/2016 sleep apnea Surgical History Surgery Date(Month/Year) skin tag removed cyst removal
== END 2025-04-17 07:03 | disposition home or self-care (01) ==
LOC: HO.XRAY 07:02
PROVIDERS: Visit Provider Registered Nurse
DX: M50.90 Cervical disc disorder, unspecified, unspecified cervical region (principal)
CPT/HCPCS: 72040

== ENCOUNTER → 2025-04-17 07:08 | Outpatient (BNV) | payer OTHER, SELFPAY | PROVIDERS: Visit Provider Student in an Organized Health Care Education/Training Program | DX: M47.812 Spondylosis without myelopathy or radiculopathy, cervical region (principal) | CPT/HCPCS: 72040 ==

== ENCOUNTER 2025-05-13 06:31 | Outpatient (REF) | payer OTHER, SELFPAY ==
--- OUTSIDE RECORDS SUMMARY | 2025-05-13 06:33 | XMS_ITS | Patient Health Record ---
Author Organization [facility] Address [address] [place] [id number] Care Team Providers Care Shoe Salesman Name Role Phone Arsalan Espinoza MD Primary [...] USE 1 SPRAY IN EACH NOSTRIL DAILY Nasal; Duration: 60 Active hydroCHLOROthiazide 12.5 MG TAKE 1 TABLE T BY MOUTH EVERY DAY IN THE MORNING Oral; Duration: 90 Active Ciclopirox 1 % USE 2 3 TIMES A WEEK DIRECTED. External; Duration: 30 Active Atenolol 50 MG 1 tablet Orally Once a day Active Famotidine 40 MG 1 tablet at bedtime Orally Once a day; Duration: 30 day(s) 08/21/2022 Active metFORMIN HCl 1000 MG 1 tablet with meal s Orally Twice a day Active MiraLax (colon prep) 17 GM/SCOOP mixed with Gatorade or Crystal Light Orally begin at 5:00 p.m. the day before the procedure; Duration: 1 day 08/21/2022 Active Esomeprazole Magnesium 40 MG TAKE 1 CAPS ULE BY MOUTH EVERY DAY; Duration: 90 Active Immunizations Vaccine Route Administration Date Status Comme nts Influenza Unknown 04/19/2020 Administered Influenza Unknown 03/20/2022 Administered Problems Problem Type SNOMED Code ICD Code Onset Dates Problem Status W/U Status Risk Notes Problem Colon cancer screening (040872247) Colon cancer screening (Z12.11) Active confirmed Problem Nausea (490625349) Nausea (R11.0) Active confir med Problem Long-term current use of antiplatelet drug (858615867738344) pickle solution maker (current) use of aspirin (Z79.82) Active confirmed Problem Gastroesophageal reflux disease without esophagitis (348104421) Gastroesophageal reflux disease without esophagitis (K21.9) Active confirmed Problem Gallbladder polyp (100165086) Gallbladder polyp (K82.4) Active confirmed Plan Of Treatment Pending Test Test Name Order Date US ABD 08/21/2022 Future Test Test Name Order Date UPPER GI ENDOSCOPY 03/18/2017 COLONOSCOPY 03/18/2017 UPPER GI ENDOSCOPY 08/09/2020 COLONOSCOPY 08/21/2022 Insurance Providers Payer Name Payer Address Payer Phone Subscriber Number Group Number Insured Name Patient Relationship to Insured Coverage Start Date Coverage End Date [facility] [address] [place] [phone] [id number] TONA SINGH Self - patient is the insured Medical (General) History Medical History History ICD Code gastroesophageal reflux dise ase, upper endoscopy 09/09, fundic gland polyps, no H. pylori or Huggins's. colonoscopy 06/05, small tubular adenoma , five-year followup diabetes mellitus hypertension mild stroke 06/2016 sleep apnea Surgical History Surgery Date(Month/Year) skin tag removed cyst removal
== END 2025-05-13 06:32 | disposition home or self-care (01) ==
LOC: HO.HMGCLDS 06:31
DX: I10 Essential (primary) hypertension (principal); M17.12 Unilateral primary osteoarthritis, left knee; J30.9 Allergic rhinitis, unspecified; E11.9 Type 2 diabetes mellitus without complications; R51.9 Headache, unspecified; G47.33 Obstructive sleep apnea (adult) (pediatric); Z99.89 Dependence on other enabling machines and devices; K21.9 Gastro-esophageal reflux disease without esophagitis; E66.9 Obesity, unspecified
CPT/HCPCS: 36415; 82947

== ENCOUNTER 2025-05-17 15:33 | Outpatient (AMB) | payer OTHER, SELFPAY ==
[2025-05-17 15:38] VITALS: BP 150/68; PULSE 68; RESP 18; TEMP 36.1; O2SAT 98; BMI 38.8
--- NOTE | 2025-05-17 15:38 | MHC.PC.OV ---
Vital Signs 05/17/25 15:38 05/17/25 16:09 Height 5 ft 11 in Weight 278 lb 6 oz BMI 38.8 BP 150/68 H 138/72 Blood Pressure Location Lt brachial Lt brachial Position Sitting Sitting Respiration 18 Pulse 68 Pulse Source Pulse Oximeter Temp 96.9 F Temp Source Temporal Artery Scan Pulse Oximetry (%) 98 Oxygen Delivery Method Room Air Intake Visit Reasons: dm/htn/hld/florinda/gerd Patient Support Assistant Required: No Accompanied by: Self / Same As Patient Allergies cat dander Allergy (Severe, Verified 05/17/25 15:54) Nasal congestion bee pollen (BEE STINGS) Allergy (Intermediate, Verified 05/17/25 15:54) SWELLING Medication List - Last Reconciled 05/17/25 by ROSANNE Castillo alfuzosin ER 10 mg PO DAILY amlodipine 10 mg PO DAILY aspirin (Adult Low Dose Aspirin) 81 mg PO DAILY atenolol 50 mg PO DAILY blood-glucose sensor (W[employer] and the GangStyle Edilson 3 Sensor device) As directed blood-glucose sensor (Dexcom G7 Sensor device) As directed cetirizine (Zyrtec) 10 mg PO DAILY PRN cholecalciferol (vitamin D3) (Sby-D-Iysiqxq Forte) 50 mcg PO DAILY 90 days clobetasol 0.025% 1 appl topical BID PRN CPAP (CPAP Machine/Device) As directed dulaglutide (Trulicity) 1.5 mg (0.5 mL) subcut QWEEK esomeprazole magnesium 40 mg PO DAILY fluocinonide 0.05% 1 appl topical BID PRN fluticasone propionate 50 mcg/actuation 1 spray intranasal DAILY hydrochlorothiazide 12.5 mg PO DAILY ketoconazole 2% 1 appl topical 2XW metformin 1,000 mg PO BID Tobacco use date assessed: 05/17/25 Dental Screening Dental Screen Date: 05/17/25 Did you have a dental visit in the last 12 months?: Yes Did you have a dental problem in the last 6 months where you did not have access to dental care?: No Was dental information given to patient?: Patient has dentist HPI dm/htn/hld/florinda/gerd HPI Details The patient is a 59-year-old male presenting for a follow-up visit for chronic condition management. He reports he is compliant with his medications, including weekly Trulicity, metformin, and daily vitamin D, and uses his CPAP machine for sleep apnea. The patient has a history of cervical spine issues since the early 1999s, including bone spurs that pinch nerves. He reports experiencing limited range of motion and pain in his arms when moving them too far behind his back or too high. A recent neck X-ray showed moderate multilevel spondylosis. He underwent cervical traction physiotherapy years ago which he felt helped to some extent, and surgery has been deemed too risky. The patient also reports knee pain, which is somewhat better and less severe when he consistently performs stretching exercises. He reports intermittent diarrhea, which he attributes to his prior cholecystectomy. Regarding his diabetes, his last A1c was 7.6. His lipid panel showed triglycerides of 254 mg/dL, LDL of 111 mg/dL, and HDL of 30 mg/dL. For health maintenance, he recently received his flu and RSV immunizations. [facility] Medical History Splenomegaly Polyp of gallbladder Stroke Obesity Obesity, diabetes, and hypertension syndrome Diabetes mellitus with coincident hypertension Sleep apnea GERD (gastroesophageal reflux disease) BPH (benign prostatic hyperplasia) Hypertension Diabetes mellitus Surgical History History of laparoscopic cholecystectomy History of esophagogastroduodenoscopy (EGD) Hx of colonoscopy History of removal of cyst History of dental surgery Family History Father CAD (coronary artery disease) CVD (cardiovascular disease) Mother Breast cancer Sister Colon cancer Social History Housing: House Are you a primary property caretaker to a significant other at home: No Do you presently have visiting nurse or other home services: No Alcohol intake: never Patient Tobacco Use Status: Never used Tobacco Tobacco use type: Cigarette e-Cigarette/Vaping Use: Never Used Second Hand Smoke Exposure: No service: No Current occupational status: employed Current occupation: [employer] Cognitive needs: No Hearing needs: No Vision needs: Yes (Glasses) Questionnaire Thrive Questionnaire Date Thrive assessed: 02/01/25 I am a: Patient What is your living situation today?: I have a steady place to live Within the past 12 months, did the food you bought not last and you didn't have the money to get more?: Never true Within the past 12 months, did you worry whether your food would run out before you got money to buy more?: Never true Do you have trouble paying for medicines?: No Do you have trouble getting transportation to medical appointments?: No Do you have trouble paying your heating and electricity bill?: No Do you have trouble taking care of your child, family member or friend?: No Do you have trouble with day-to-day activities such as bathing, preparing meals, shopping, managing finances, etc.?: No Are you currently unemployed and looking for a job?: No Are you interested in more education?: I choose not to answer this question Please select the resources that you would like help with: None Currently or been in a relationship where the following occur: No concerns reported THRIVE Score: 0 OLY-7 AMB Questionnaire OLY-7 Date OLY - 7 assessed: 02/08/25 Source: Developed by Drs. Grady Ireland, Bronwyn Perkins, Bob Galloway and colleagues, with an educational sarahy from [employer]. Review of Systems Const Denies headache(s) Eyes Denies loss of vision ENT Denies vertigo, Denies dizziness, Denies headache(s), Reports neck pain and Denies sore throat Card Denies chest pain, Denies leg edema and Denies lightheadedness Resp Denies cough, Denies hemoptysis and Denies wheezing GI Denies abdominal pain, Denies melena, Denies constipation, Denies diarrhea and Denies vomiting Denies dysuria, Denies urinary frequency and Denies urinary urgency Musc Reports arthralgias (Left knee), Denies joint swelling, Reports neck pain, Denies numbness and Denies tingling Neuro Denies Abnormal speech present, Denies behavioral changes, Denies vertigo, Denies dizziness, Denies headache(s), Denies loss of vision, Denies numbness and Denies tingling Psych Denies anxiety, Denies behavioral changes and Denies depression Gui/Lymph Denies easy bleeding and Denies easy bruising Aller/Immun Denies wheezing Physical exam (Primary Care) Vital Signs: Last Vital Signs Temp 96.9 F 05/17/25 15:38 Pulse 68 05/17/25 15:38 Resp 18 10/29/25 15:38 BP 150/68 H 05/17/25 15:38 Pulse Ox 98 05/17/25 15:38 Oxygen Delivery Method Room Air 05/17/25 15:38 BMI result Body Mass Index 38.8 Tobacco/Smoking Status: Tobacco use Status Tobacco use date assessed 05/17/25 05/17/25 15:45 Patient Tobacco Use Status Never used Tobacco 05/17/25 15:45 Tobacco use type Cigarette 05/17/25 15:45 e-Cigarette/Vaping Use Never Used 05/17/25 15:45 Thrive Assessment: Date of Thrive Assessment Date Thrive assessed 02/01/25 05/17/25 15:45 Currently or been in a relationship where the following occur: No concerns reported Const General: healthy appearing, no acute distress, alert and awake Nutritional Appearance: well nourished Orientation/consciousness: oriented to person, oriented to place and oriented to time HENMT Ears: right TM abnormal General nose exam: Normal external nose present Eyes Conjunctivae: conjunctivae normal Sclerae: sclerae normal Pupils: Equal, round and reactive pupils present Neck Neck: Yes no lymphadenopathy and Yes no JVD Thyroid: Thyroid normal Carotids: no bruits Resp Effort & Inspection: normal respiratory effort and not tachypneic Auscultation: no crackles, no rales, no rhonchi and no wheezes Cardio Rate: regular rate Rhythm: regular rhythm Heart sounds: S1 normal heart sound present, S2 normal heart sound present, no murmurs and normal S1 and S2 GI Palpation (GI): Soft to palpation, nontender, no hepatomegaly and no splenomegaly Auscultation: normal bowel sounds Back/Spine/Pelvis Cervical Spine: No Cervical spine tenderness Skin General skin exam: no rashes or lesions noted and dry skin Neuro General: oriented to person, oriented to place and oriented to time Cranial nerves: Yes Equal, round and reactive pupils present Speech: No Abnormal speech present Gait exam (Neuro): Normal gait present Motor exam (neuro): no tremor noted Extrem Right upper extremity: full ROM Left upper extremity: full ROM Right lower extremity: full ROM; no edema Left lower extremity: full ROM; no edema Psych Mental Status: mental status grossly normal Speech and movement: Normal speech and movement present Affect: normal affect Attitude: cooperative Thought process: Normal thought process present Coding Level of Care Code Est Pt Level 4 (00077) Diagnoses Hypertension, unspecified type I10 Hypertension type: unspecified Type 2 diabetes mellitus with hyperglycemia, without long-term current use of insulin E11.65 Diabetes mellitus type: type 2 Diabetes mellitus exterminator insulin use: without retirement use Diabetes mellitus complication status: with hyperglycemia Class 2 severe obesity with serious comorbidity and body mass index (BMI) of 38.0 to 38.9 in adult, unspecified obesity type E66.812; E66.01; Z68.38 Obesity type: unspecified obesity type Obesity classification: adult class 2 (BMI 35 - 39.9) Serious obesity comorbidity presence: with serious comorbidity Body mass index: BMI 38.0-38.9 Allergic rhinitis due to pollen, unspecified seasonality J30.1 Allergic rhinitis trigger: pollen Allergic rhinitis seasonality: unspecified Chronic GERD K21.9 FLORINDA on CPAP G47.33; Z99.89 Primary osteoarthritis of left knee M17.12 Osteoarthritis type: primary Hyperlipidemia, unspecified hyperlipidemia type E78.5 Hyperlipidemia type: unspecified Neck pain M54.2 Time Spent (min) 38 Assessment & Plan Assessment & Plan (1) Hypertension: Code(s): I10 - Essential (primary) hypertension Category: Medical Qualifiers: Hypertension type: unspecified Qualified Code(s): I10 - Essential (primary) hypertension (2) Diabetes mellitus: Code(s): E11.9 - Type 2 diabetes mellitus without complications Category: Medical Qualifiers: Diabetes mellitus type: type 2 Diabetes mellitus exterminator insulin use: without retirement use Diabetes mellitus complication status: with hyperglycemia Qualified Code(s): E11.65 - Type 2 diabetes mellitus with hyperglycemia Plan: The patient's llwcf-pc-wivo A1c is 7.5, a slight improvement from 7.6 previously. The goal is to lower his A1c to 7.0 or less. The plan is to continue current medications, including Trulicity and metformin, and focus on dietary changes rather than increasing medication doses to avoid potential side effects. Will recheck labs, including A1c, prior to the next three-month follow-up visit. (3) Obesity: Comment: as above Code(s): E66.9 - Obesity, unspecified Category: Medical Qualifiers: Obesity type: unspecified obesity type Obesity classification: adult class 2 (BMI 35 - 39.9) Serious obesity comorbidity presence: with serious comorbidity Body mass index: BMI 38.0-38.9 Qualified Code(s): E66.812 - Obesity, class 2; E66.01 - Morbid (severe) obesity due to excess calories; Z68.38 - Body mass index [BMI] 38.0-38.9, adult Plan: Encouraged to exercise for at least 30 minutes a day/5 days a week Healthy eating discussed. Encouraged to eat fruits/vegetables, protein-fish/baked chicken, and to avoid salty/fried foods, sweets, caffeine and carbohydrates. Encouraged to increase water intake 6-8 glasses a day (4) Allergic rhinitis: Code(s): J30.9 - Allergic rhinitis, unspecified Category: Medical Qualifiers: Allergic rhinitis trigger: pollen Allergic rhinitis seasonality: unspecified Qualified Code(s): J30.1 - Allergic rhinitis due to pollen Plan: Limit exposure to allergens Air purifiers and dust filters Air conditioner in house, especially where sleeping (5) Chronic GERD: Code(s): K21.9 - Gastro-esophageal reflux disease without esophagitis Category: Medical Plan: Do not eat meals or drink carbonated beverages within 3 hr of bedtime Decrease the amount of fried, fatty, and spicy foods to decrease gastric acid production Raise the head of the bed using 4 to 6-inch blocks, especially if nocturnal symptoms are present Lose weight if indicated; avoid tight-fitting clothing, especially around the waist Avoid foods that relax the Lower esophageal sphincter (chocolate, peppermint, high-fat foods etc.,) Continue esomeprazole magnesium 40 mg daily (6) FLORINDA on CPAP: Code(s): G47.33 - Obstructive sleep apnea (adult) (pediatric); Z99.89 - Dependence on other enabling machines and devices Category: Medical Plan: Continue CPAP (7) Osteoarthritis of left knee: Code(s): M17.12 - Unilateral primary osteoarthritis, left knee Category: Medical Qualifiers: Osteoarthritis type: primary Qualified Code(s): M17.12 - Unilateral primary osteoarthritis, left knee Plan: Continue conservative measures of stretching exercises. He used topical pain medication or cold/heat compress on for 20 minutes intervals. (8) HLD (hyperlipidemia): Code(s): E78.5 - Hyperlipidemia, unspecified Category: Medical Qualifiers: Hyperlipidemia type: unspecified Qualified Code(s): E78.5 - Hyperlipidemia, unspecified Plan: The patient's recent labs show elevated triglycerides at 254 mg/dL and LDL at 111 mg/dL, with low HDL at 30 mg/dL. The goal LDL is less than 70 mg/dL due to his diabetes. Recommended adding voyt-ixc-nuwssip fish oil/omega-3 supplements to help improve HDL. A repeat lipid panel will be ordered with his other labs. (9) Neck pain: Code(s): M54.2 - Cervicalgia Category: Medical Plan: The patient reports ongoing neck issues with limited arm motion and pain, and a recent X-ray confirmed moderate multilevel spondylosis. He has a history of bone spurs and pinched nerves, and surgical intervention is considered too risky. The option of physical therapy to strengthen the surrounding muscles was discussed, and a referral will be placed when he feels ready, pending his new insurance coverage. Plan Patient to follow up in 3 months Orders: Orders AMB Hemoglobin A1c Today E11.65 - Type 2 diabetes mellitus with hyperglycemia, E11.9 - Type 2 diabetes mellitus without complications, I10 - Essential (primary) hypertension Comprehensive [place]. Panel Fast Today E11.65 - Type 2 diabetes mellitus with hyperglycemia, E11.9 - Type 2 diabetes mellitus without complications, E66.01 - Morbid (severe) obesity due to excess calories, E66.812 - Obesity, class 2, G47.33 - Obstructive sleep apnea (adult) (pediatric), I10 - Essential (primary) hypertension, K21.9 - Gastro-esophageal reflux disease without esophagitis, Z68.38 - Body mass index [BMI] 38.0-38.9, adult, Z99.89 - Dependence on other enabling machines and devices Lipid Panel Today E11.65 - Type 2 diabetes mellitus with hyperglycemia, E11.9 - Type 2 diabetes mellitus without complications, E66.01 - Morbid (severe) obesity due to excess calories, E66.812 - Obesity, class 2, G47.33 - Obstructive sleep apnea (adult) (pediatric), I10 - Essential (primary) hypertension, K21.9 - Gastro-esophageal reflux disease without esophagitis, Z68.38 - Body mass index [BMI] 38.0-38.9, adult, Z99.89 - Dependence on other enabling machines and devices UA CC w/rflx Micro + Cult Today E11.65 - Type 2 diabetes mellitus with hyperglycemia, E11.9 - Type 2 diabetes mellitus without complications, E66.01 - Morbid (severe) obesity due to excess calories, E66.812 - Obesity, class 2, G47.33 - Obstructive sleep apnea (adult) (pediatric), I10 - Essential (primary) hypertension, K21.9 - Gastro-esophageal reflux disease without esophagitis, Z68.38 - Body mass index [BMI] 38.0-38.9, adult, Z99.89 - Dependence on other enabling machines and devices TSH reflex Free T4 Today E11.65 - Type 2 diabetes mellitus with hyperglycemia, E11.9 - Type 2 diabetes mellitus without complications, E66.01 - Morbid (severe) obesity due to excess calories, E66.812 - Obesity, class 2, G47.33 - Obstructive sleep apnea (adult) (pediatric), I10 - Essential (primary) hypertension, K21.9 - Gastro-esophageal reflux disease without esophagitis, Z68.38 - Body mass index [BMI] 38.0-38.9, adult, Z99.89 - Dependence on other enabling machines and devices Complete Blood Count Auto Diff 3 Months D64.9 - Anemia, unspecified, E11.59 - Type 2 diabetes mellitus with other circulatory complications, E11.65 - Type 2 diabetes mellitus with hyperglycemia, E11.69 - Type 2 diabetes mellitus with other specified complication, E11.9 - Type 2 diabetes mellitus without complications, E66.9 - Obesity, unspecified, G47.33 - Obstructive sleep apnea (adult) (pediatric), I10 - Essential (primary) hypertension, I15.2 - Hypertension secondary to endocrine disorders, K21.9 - Gastro-esophageal reflux disease without esophagitis, M17.11 - Unilateral primary osteoarthritis, right knee, M17.12 - Unilateral primary osteoarthritis, left knee, R51.9 - Headache, unspecified, Z99.89 - Dependence on other enabling machines and devices TSH reflex Free T4 3 Months D64.9 - Anemia, unspecified, E11.59 - Type 2 diabetes mellitus with other circulatory complications, E11.65 - Type 2 diabetes mellitus with hyperglycemia, E11.69 - Type 2 diabetes mellitus with other specified complication, E11.9 - Type 2 diabetes mellitus without complications, E66.9 - Obesity, unspecified, G47.33 - Obstructive sleep apnea (adult) (pediatric), I10 - Essential (primary) hypertension, I15.2 - Hypertension secondary to endocrine disorders, K21.9 - Gastro-esophageal reflux disease without esophagitis, M17.11 - Unilateral primary osteoarthritis, right knee, M17.12 - Unilateral primary osteoarthritis, left knee, R51.9 - Headache, unspecified, Z99.89 - Dependence on other enabling machines and devices Vitamin D 25-OH Total 3 Months D64.9 - Anemia, unspecified, E11.59 - Type 2 diabetes mellitus with other circulatory complications, E11.65 - Type 2 diabetes mellitus with hyperglycemia, E11.69 - Type 2 diabetes mellitus with other specified complication, E11.9 - Type 2 diabetes mellitus without complications, E66.9 - Obesity, unspecified, G47.33 - Obstructive sleep apnea (adult) (pediatric), I10 - Essential (primary) hypertension, I15.2 - Hypertension secondary to endocrine disorders, K21.9 - Gastro-esophageal reflux disease without esophagitis, M17.11 - Unilateral primary osteoarthritis, right knee, M17.12 - Unilateral primary osteoarthritis, left knee, R51.9 - Headache, unspecified, Z99.89 - Dependence on other enabling machines and devices Vitamin B12 and Folate 3 Months D64.9 - Anemia, unspecified, E11.59 - Type 2 diabetes mellitus with other circulatory complications, E11.65 - Type 2 diabetes mellitus with hyperglycemia, E11.69 - Type 2 diabetes mellitus with other specified complication, E11.9 - Type 2 diabetes mellitus without complications, E66.9 - Obesity, unspecified, G47.33 - Obstructive sleep apnea (adult) (pediatric), I10 - Essential (primary) hypertension, I15.2 - Hypertension secondary to endocrine disorders, K21.9 - Gastro-esophageal reflux disease without esophagitis, M17.11 - Unilateral primary osteoarthritis, right knee, M17.12 - Unilateral primary osteoarthritis, left knee, R51.9 - Headache, unspecified, Z99.89 - Dependence on other enabling machines and devices Complete Blood Count Auto Diff Today E11.65 - Type 2 diabetes mellitus with hyperglycemia, E11.9 - Type 2 diabetes mellitus without complications, E66.01 - Morbid (severe) obesity due to excess calories, E66.812 - Obesity, class 2, G47.33 - Obstructive sleep apnea (adult) (pediatric), I10 - Essential (primary) hypertension, K21.9 - Gastro-esophageal reflux disease without esophagitis, Z68.38 - Body mass index [BMI] 38.0-38.9, adult, Z99.89 - Dependence on other enabling machines and devices Vitamin D 25-OH Total Today E11.65 - Type 2 diabetes mellitus with hyperglycemia, E11.9 - Type 2 diabetes mellitus without complications, E66.01 - Morbid (severe) obesity due to excess calories, E66.812 - Obesity, class 2, G47.33 - Obstructive sleep apnea (adult) (pediatric), I10 - Essential (primary) hypertension, K21.9 - Gastro-esophageal reflux disease without esophagitis, Z68.38 - Body mass index [BMI] 38.0-38.9, adult, Z99.89 - Dependence on other enabling machines and devices Vitamin B12 and Folate Today D64.9 - Anemia, unspecified Comprehensive [place]. Panel Fast 3 Months D64.9 - Anemia, unspecified, E11.59 - Type 2 diabetes mellitus with other circulatory complications, E11.65 - Type 2 diabetes mellitus with hyperglycemia, E11.69 - Type 2 diabetes mellitus with other specified complication, E11.9 - Type 2 diabetes mellitus without complications, E66.9 - Obesity, unspecified, G47.33 - Obstructive sleep apnea (adult) (pediatric), I10 - Essential (primary) hypertension, I15.2 - Hypertension secondary to endocrine disorders, K21.9 - Gastro-esophageal reflux disease without esophagitis, M17.11 - Unilateral primary osteoarthritis, right knee, M17.12 - Unilateral primary osteoarthritis, left knee, R51.9 - Headache, unspecified, Z99.89 - Dependence on other enabling machines and devices Lipid Panel 3 Months D64.9 - Anemia, unspecified, E11.59 - Type 2 diabetes mellitus with other circulatory complications, E11.65 - Type 2 diabetes mellitus with hyperglycemia, E11.69 - Type 2 diabetes mellitus with other specified complication, E11.9 - Type 2 diabetes mellitus without complications, E66.9 - Obesity, unspecified, G47.33 - Obstructive sleep apnea (adult) (pediatric), I10 - Essential (primary) hypertension, I15.2 - Hypertension secondary to endocrine disorders, K21.9 - Gastro-esophageal reflux disease without esophagitis, M17.11 - Unilateral primary osteoarthritis, right knee, M17.12 - Unilateral primary osteoarthritis, left knee, R51.9 - Headache, unspecified, Z99.89 - Dependence on other enabling machines and devices UA CC w/rflx Micro + Cult 3 Months D64.9 - Anemia, unspecified, E11.59 - Type 2 diabetes mellitus with other circulatory complications, E11.65 - Type 2 diabetes mellitus with hyperglycemia, E11.69 - Type 2 diabetes mellitus with other specified complication, E11.9 - Type 2 diabetes mellitus without complications, E66.9 - Obesity, unspecified, G47.33 - Obstructive sleep apnea (adult) (pediatric), I10 - Essential (primary) hypertension, I15.2 - Hypertension secondary to endocrine disorders, K21.9 - Gastro-esophageal reflux disease without esophagitis, M17.11 - Unilateral primary osteoarthritis, right knee, M17.12 - Unilateral primary osteoarthritis, left knee, R51.9 - Headache, unspecified, Z99.89 - Dependence on other enabling machines and devices Hemoglobin A1c 3 Months D64.9 - Anemia, unspecified, E11.59 - Type 2 diabetes mellitus with other circulatory complications, E11.65 - Type 2 diabetes mellitus with hyperglycemia, E11.69 - Type 2 diabetes mellitus with other specified complication, E11.9 - Type 2 diabetes mellitus without complications, E66.9 - Obesity, unspecified, G47.33 - Obstructive sleep apnea (adult) (pediatric), I10 - Essential (primary) hypertension, I15.2 - Hypertension secondary to endocrine disorders, K21.9 - Gastro-esophageal reflux disease without esophagitis, M17.11 - Unilateral primary osteoarthritis, right knee, M17.12 - Unilateral primary osteoarthritis, left knee, R51.9 - Headache, unspecified, Z99.89 - Dependence on other enabling machines and devices
[2025-05-17 16:09] VITALS: BP 138/72
--- OUTSIDE RECORDS SUMMARY | 2025-05-17 19:52 | XMS_ITS | Patient Health Record ---
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) use of aspirin (Z79.82) Active confirmed Problem Gastroesophageal reflux disease without esophagitis (387948445) Gastroesophageal reflux disease without esophagitis (K21.9) Active confirmed Problem Gallbladder polyp (950385632) Gallbladder polyp (K82.4) Active confirmed Plan Of Treatment Pending Test Test Name Order Date US ABD 08/21/2022 Future Test Test Name Order Date UPPER GI ENDOSCOPY 03/18/2017 COLONOSCOPY 03/18/2017 UPPER GI ENDOSCOPY 08/09/2020 COLONOSCOPY 08/21/2022 Insurance Providers Payer Name Payer Address Payer Phone Subscriber Number Group Number Insured Name Patient Relationship to Insured Coverage Start Date Coverage End Date [facility] [address] [place] [phone] [id number] TONA SINGH Self - patient is the insured Medical (General) History Medical History History ICD Code gastroesophageal reflux dise ase, upper endoscopy 09/09, fundic gland polyps, no H. pylori or Huggins's. colonoscopy 06/05, small tubular adenoma , five-year followup diabetes mellitus hypertension mild stroke 06/2016 sleep apnea Surgical History Surgery Date(Month/Year) skin tag removed cyst removal
== END 2025-05-17 16:16 | disposition home or self-care (01) ==
LOC: HO.HMCH 15:34
DX: I10 Essential (primary) hypertension (principal); E11.65 Type 2 diabetes mellitus with hyperglycemia; E66.812 Obesity, class 2; E66.01 Morbid (severe) obesity due to excess calories; Z68.38 Body mass index [BMI] 38.0-38.9, adult; J30.1 Allergic rhinitis due to pollen; K21.9 Gastro-esophageal reflux disease without esophagitis; G47.33 Obstructive sleep apnea (adult) (pediatric); Z99.89 Dependence on other enabling machines and devices; M17.12 Unilateral primary osteoarthritis, left knee; E78.5 Hyperlipidemia, unspecified; M54.2 Cervicalgia

== ENCOUNTER 2025-05-27 06:37 | Outpatient (REF) | payer OTHER, SELFPAY ==
[2025-05-27 11:25] LABS: MANUAL DIFF FLAG NO
[2025-05-27 11:40] LABS: Hematocrit 39.7 % (42.0-52.0); Hemoglobin 12.7 g/dl (14.0-18.0); Imm Gran Abs Auto 0.04 X10*3/uL (0.00-0.03); Imm Gran Pct Auto 0.5 % (0.0-0.4); Lymphocytes Absolute Auto 2.5 X10*3/uL (1.2-4.9); Mean Corpuscular HGB Conc 32.0 g/dl (31.0-36.0); Mean Corpuscular Hemoglobin 27.7 pg (27.0-33.0); Mean Corpuscular Volume 86.7 fL (80.0-98.0); NRBC Abs Auto 0.000 X10*3/uL (0.0-0.012); NRBC Pct Auto 0.0 /100WBC (0.0-0.2); Platelet Count 249 X10*3/uL (160-400); Red Blood Count 4.58 X10*6/uL (4.60-5.80); White Blood Count 8.9 X10*3/uL (4.8-10.8)
[2025-05-27 11:52] LABS: Appearance Urine Clear; Glucose Urine UA Negative (Negative); PH 8.5 (5.0-9.0); Specific Gravity - Urine 1.015 (1.005-1.025)
[2025-05-27 12:41] LABS: Folate 10.7 ng/mL (> or = 4.0); Vitamin B12 1147 pg/mL (200-900)
[2025-05-27 12:50] LABS: Alanine Aminotransferase 32 U/L (0-40); Albumin Level 4.6 g/dL (3.5-5.0); Alkaline Phosphatase 51 U/L (39-117); Anion Gap 15 (12-20); Aspartate Amino Transferase 37 U/L (5-37); Blood Urea Nitrogen 13 mg/dL (9-16); Calcium 9.3 mg/dL (8.4-10.2); Carbon Dioxide 24 mmol/L (22-29); Chloride 103 mmol/L (96-108); Cholesterol 179 mg/dL (<200); Estimated Glomerular Filt Rate > 60; HDL Cholesterol 31 mg/dL (>40); Potassium 4.1 mmol/L (3.3-5.1); Sodium 138 mmol/L (135-145); Total Protein 7.2 g/dL (6.5-8.0); Triglycerides 237 mg/dL (<150)
== END 2025-05-27 06:38 | disposition home or self-care (01) ==
LOC: HO.HMGCLDS 06:37
DX: I10 Essential (primary) hypertension (principal); E11.65 Type 2 diabetes mellitus with hyperglycemia; K21.9 Gastro-esophageal reflux disease without esophagitis; G47.33 Obstructive sleep apnea (adult) (pediatric); E66.812 Obesity, class 2; D64.9 Anemia, unspecified; Z68.38 Body mass index [BMI] 38.0-38.9, adult; Z99.89 Dependence on other enabling machines and devices
CPT/HCPCS: 36415; 80053; 80061; 81003; 82306; 82607; 82746; 84443; 85025